=== PATIENT | female | born 1950 | race Caucasian/White ===

== ENCOUNTER 2020-08-24 10:47 | Outpatient (CLI) | payer MEDICARE, MEDICAID, SELFPAY ==
--- NOTE | 2020-08-24 10:59 | MM_ITS ---
WS: [id number] BILATERAL DIGITAL SCREENING MAMMOGRAM WITH CAD CLINICAL INFORMATION: ENCOUNTER FOR SCREENING MAMMOGRAM FOR MALIGNANT NEOPLASM OF HISTORY: Screening mammogram. No current complaints. COMPARISON: January 28, 2019 TECHNIQUE: Bilateral CC and MLO views. FINDINGS: Fatty-replaced breasts bilaterally. No suspicious focal mass, asymmetry, calcifications, or ux architect ural distortion. No evidence of malignancy. Vascular calcification. MM/[place] [id number] IMPRESSION: BI-RADS: 2-Benign FOLLOW UP: 1 Year Follow-up Recommend return to annual screening mammography.
== END 2020-08-24 10:48 | disposition home or self-care (01) ==
PROVIDERS: PCP Family Medicine; Visit Provider Family Medicine
DX: Z12.31 Encounter for screening mammogram for malignant neoplasm of breast (principal)
CPT/HCPCS: 77067

== ENCOUNTER 2020-12-23 20:01 | Inpatient (IN) | payer MEDICARE, MEDICAID, SELFPAY ==
--- NOTE | 2020-12-23 20:03 | XR_ITS ---
WS: [id number] Exam: XR knee RT 1-2V [id number] Date/Time of Exam: 12/23/2020 8:03 PM Reason For Exam: fall Comparison 01/07/2019. Moderate tricompartmental DJD noted. No fracture or dislocation. No joint effusion. XR/XR knee RT 1-2V 50904 IMPRESSION: 1. Moderately advanced DJD. No fracture noted.
[2020-12-23 20:20] VITALS: BP 123/76; PULSE 101; RESP 14; TEMP 36.8; O2SAT 98; BMI 37.1
--- NOTE | 2020-12-23 20:32 | XR_ITS ---
WS: [id number] Exam: XR elbow RT min 3V* [id number] Date/Time of Exam: 12/23/2020 8:32 PM Reason For Exam: pain No fracture or dislocation. No joint effusion noted. Normal soft tissues. XR/XR elbow RT min 3V* [id number] IMPRESSION: 1. Negative right elbow.
--- NOTE | 2020-12-23 22:05 | W.ED.FALL ---
Documented by User: YULIA Salazar 12/23/20 23:23 HPI - Fall General: Chief Complaint: Fall Stated Complaint: Fall/knee/leg and arm hurt Time Seen by Provider: 12/23/20 22:05 Source: patient Mode of arrival: ambulatory Limitations: no limitations History of Present Illness: HPI Narrative: Patient was walking down the steps and on the last step when she stepped off she fell landing against a car. Patient reports shoulder and right leg pain. Patient is in moderate to severe pain. Patient is alert and oriented. Patient denies any loss of consciousness or head injury. Patient has a history of diabetes, and osteoporosis. MD complaint: fall Review of Systems General: Reports: 10 or more systems reviewed and unremarkable except in HPI and below Musc: Reports: other (Right shoulder and right hip pain.) PFS ED PFSH: Medical History (Updated 12/24/20 @ 00:26 by Cris Johnson MD) Chronic kidney disease Cutaneous sarcoidosis Degenerative joint disease Diabetes Hypertension Hypothyroidism Hypothyroidism Osteoporosis Sleep apnea Surgical History (Updated 12/24/20 @ 00:02 by Tegan Cleveland MD) History of appendectomy History of eyelid surgery Hx of tubal ligation S/P trigger finger release Family History (Updated 12/24/20 @ 00:02 by Tegan Cleveland MD) Other Diabetes Social History (Updated 12/24/20 @ 00:03 by Tegan Cleveland MD) Smoking and tobacco status: never smoked Alcohol intake: never Substance/Drug Use: never Lives independently: Yes Housing: House Physical Exam Const: COMMON NORMALS: no acute distress and patient oriented x3 GENERAL APPEARANCE: cooperative HENMT: COMMON NORMALS: normocephalic and Normal external nose present HEAD & SCALP: normal to inspection and normocephalic NOSE: Normal external nose present MOUTH: Normal oral and palatal mucosa present Eye: GENERAL EYE: appearance normal, both eyes and all related structures Neck/C-Spine: COMMON NORMALS: full ROM Chest: COMMONS NORMALS: normal inspection of the chest Resp: COMMON NORMALS: normal respiratory effort EFFORT & INSPECTION: Yes able to speak in complete sentences Cardio: COMMON NORMALS: regular rate and regular rhythm RATE: regular rate RHYTHM: regular rhythm GI: COMMON NORMALS: non-tender Back/Pelvis: COMMON NORMALS: thoracic and lumbar spine normal to inspection Extremity: COMMON NORMALS: normal to inspection NARRATIVE EXTREMITY EXAM: Step-off noted to the right shoulder on exam with tenderness. Patient has severe pain with movement. Pain is noted in the right hip with palpation. Neuro: COMMON NORMALS: patient oriented x3 and moves all extremities Psych: COMMON NORMALS: mental status grossly normal and cooperative Skin: COMMON NORMALS: no rashes or lesions noted GENERAL SKIN EXAM: no rashes or lesions noted Course ED course: 2224, reviewed x-rays with Dr. Johnson noting a fracture of the femoral neck, and dislocation of the right shoulder. Dr. Johnson said he would reduce the right shoulder and requested that I talk to Dr. Ayala for treatment recommendations for fracture of the hip. Vital Signs: Vital signs: Vital Signs Temperature 98.2 F 12/23/20 23:56 Pulse Rate 80 12/24/20 00:14 Respiratory Rate 17 12/24/20 00:14 Blood Pressure 152/93 12/24/20 00:14 Pulse Oximetry 99 12/24/20 00:14 MDM - Fall MDM Narrative: Medical decision making narrative: Patient comes in today for complaints of injury to the right shoulder and right hip. Patient was stepping off a last step and tripped landing against a car that was parked near. Patient reports pain in the shoulder and pain in the hip. On exam we note dislocation of the right shoulder. Distal pulses were intact. Patient had tenderness and inability to lift leg off the bed of the right leg. Differential diagnosis includes fracture, dislocation, contusion. X-ray of the right hip noted a femoral neck fracture. X-ray of the right shoulder noted dislocation. Reviewed exam with Dr. Johnson who will reduce the shoulder. And reviewed with Dr. Ayala who agreed to see patient for repair of the hip on admission. Dr. Olivo was consulted for admission. EKG Data^: EKG 1: Attestation: I personally reviewed and interpreted this EKG as follows: (0, EKG shows sinus rhythm with a regular rate at 76 bpm, no ST elevation is noted, no ectopy is noted.) Discharge Plan Discharge Patient Disposition: Admitted As Inpatient Admit Provider: Tegan Cleveland Clinical Impression: Hip fracture Qualifiers: Encounter type: initial encounter Fracture type: closed Laterality: right Qualified Code(s): S72.001A - Fracture of unspecified part of neck of right femur, initial encounter for closed fracture Shoulder dislocation Qualifiers: Encounter type: initial encounter Laterality: right Qualified Code(s): S43.004A - Unspecified dislocation of right shoulder joint, initial encounter Condition: Stable Coding Level of Care Code ED Paint Mixer for Isma Fwd Exam Comprehensive Documented by User: Cris Johnson MD 12/24/20 00:30 HPI - Fall General: Chief Complaint: Fall Stated Complaint: Fall/knee/leg and arm hurt Time Seen by Provider: 12/23/20 22:05 [facility] ED PFSH: Medical History (Updated 12/24/20 @ 00:26 by Cris Johnson MD) Chronic kidney disease Cutaneous sarcoidosis Degenerative joint disease Diabetes Hypertension Hypothyroidism Hypothyroidism Osteoporosis Sleep apnea Surgical History (Updated 12/24/20 @ 00:02 by Tegan Cleveland MD) History of appendectomy History of eyelid surgery Hx of tubal ligation S/P trigger finger release Family History (Updated 12/24/20 @ 00:02 by Tegan Cleveland MD) Other Diabetes Social History (Updated 12/24/20 @ 00:03 by Tegan Cleveland MD) Smoking and tobacco status: never smoked Alcohol intake: never Substance/Drug Use: never Lives independently: Yes Housing: House Procedures Orthopedic Joint Reduction Joint #1: Time Out Performed: Yes Side: right Joint Reduction Location: shoulder Analgesia: procedural sedation Shoulder Technique Used (if applicable): traction/counter-traction Post-reduction neuro exam: intact Post-reduction vascular: intact Post Reduction X-Ray Obtained: Yes Post Reduction X-Ray Results: reduced Splint Applied: Yes Patient Tolerated Procedure: well Procedural Sedation Indication: fracture/dislocation reduction ASA Class: III Preparation: hall monitor applied, pulse oximeter, supplemental O2 applied, suction/airway equipment at bedside and IV secured IV Propofol dose (mg): 40 Patient Tolerated Procedure: well Complications: none Course Vital Signs: Vital signs: Vital Signs Temperature 98.2 F 12/23/20 23:56 Pulse Rate 80 12/24/20 00:14 Respiratory Rate 17 01/25/21 00:14 Blood Pressure 152/93 12/24/20 00:14 Pulse Oximetry 99 12/24/20 00:14 MDM - Fall MDM Narrative: Medical decision making narrative: Patient presents here with a hip fracture along with a shoulder dislocation from a fall. I was able to reduce her shoulder. Patient placed in a shoulder immobilizer. Spoke to the hospitalist along with orthopedics and will admit for her right hip fracture. She had no signs of head injury. Discharge Plan Discharge Patient Disposition: Admitted As Inpatient Admit Provider: Tegan Cleveland Clinical Impression: Hip fracture Qualifiers: Encounter type: initial encounter Fracture type: closed Laterality: right Qualified Code(s): S72.001A - Fracture of unspecified part of neck of right femur, initial encounter for closed fracture Shoulder dislocation Qualifiers: Encounter type: initial encounter Laterality: right Qualified Code(s): S43.004A - Unspecified dislocation of right shoulder joint, initial encounter Condition: Stable Coding Level of Care Code ED Paint Mixer for Isma Echols Exam Comprehensive
--- NOTE | 2020-12-23 22:14 | ECG_ITS ---
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: : 1950 Requested By: Festus Flores Order Number: [id number] Reading MD: SHERI MEDINA Measurements Intervals Cecilia Rate: 76 P: 253 NV: 114 QRS: 25 QRSD: 98 T: 69 QT: 400 QTc: 452 Interpretive Statements SINUS RHYTHM LOW QRS VOLTAGE IN PRECORDIAL LEADS [QRS DEFLECTION < 1.0 mV IN CHEST LEADS] NONSPECIFIC T-WAVE ABNORMALITY ABNORMAL RHYTHM ECG Compared to ECG 01/29/2016 12:25:00 No significant change Electronically Signed On 12-24-2020 18:35:53 HIGH SCHOOL HOME ECONOMICS 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
--- NOTE | 2020-12-23 22:14 | XR_ITS ---
WS: [id number] Exam: XR hip RT 2-3V wo/w pel* [id number] Date/Time of Exam: 12/23/2020 10:14 PM Reason For Exam: injury There is a basocervical fracture of the right hip with mild coxa vera deformity. No other fracture. N o dislocation. Moderate DJD of the joint compartment and osteopenia. XR/XR hip RT 2-3V wo/w pel* [id number] IMPRESSION: 1. Subcapital fracture of the right hip with mild coxa vera deformity. Moderate DJD.
--- NOTE | 2020-12-23 22:14 | XR_ITS ---
WS: [id number] Exam: XR shoulder RT min 2V* [id number] Date/Time of Exam: 12/23/2020 10:14 PM Reason For Exam: injury No acute fracture. There is inferior displacement of the right humeral head which may be due to laxit y of the joint capsule however dislocation is not totally excluded. Degenerative change of the AC jose nt. XR/XR shoulder RT min 2V* [id number] IMPRESSION: 1. No acute fracture. 2. Inferior displacement of the right humeral head that may be due to the laxit y of the joint capsule versus dislocation. The patient is clinically suspicious for dislocation, an axillary view or repeat Y view could be helpful for furthe r workup.
--- NOTE | 2020-12-23 22:14 | XR_ITS ---
WS: [id number] Exam: XR chest 1V portable [id number] Date/Time of Exam: 12/23/2020 10:14 PM Reason For Exam: pre-op, hip fracture Comparison 01/17/2016. The lungs are clear and fully expanded. No pleural effusions. Calcified hilar and mediastinal lymph n odes. The mediastinum is not widened. Normal heart size. There appears to be some inferior displaceme nt of the right humeral head. This may be due to laxity of the joint capsule however dislocation is n ot excluded based on this exam. XR/XR chest 1V portable [id number] IMPRESSION: 1. No acute cardiopulmonary finding. 2. Inferiorly displaced right humeral head. This may be positional however disl ocation is not entirely excluded
[2020-12-23 22:19] VITALS: BP 142/73; PULSE 78; RESP 17; O2SAT 97
[2020-12-23 22:59] VITALS: RESP 17; O2SAT 97
[2020-12-23] MEDS: ondansetron 2 mg/ML SDV 2 mL 4 MG IVP (22:59)
[2020-12-23] MEDS: HYDROmorphone 1 mg/mL INJ 1 mL IVP (22:59)
[2020-12-23] MEDS: LORazepam 2 mg/mL INJ 1 mL 1 MG IVP (23:25)
[2020-12-23 23:26] VITALS: BP 131/78; PULSE 87; RESP 17; O2SAT 97
[2020-12-23 23:56] VITALS: BP 152/93; PULSE 82; RESP 17; TEMP 36.8; O2SAT 100
[2020-12-23] MEDS: propofol 10 mg/mL SDV 20 mL 52.2 MG IVP (23:57)
--- NOTE | 2020-12-23 23:59 | PM.HP ---
Providers/Chief Complaint Admitting Physician: Tegan Cleveland MD Primary Care Provider: Kerrie Hunter MD Chief Complaint: Fall/knee/leg and arm hurt History of Present Illness Rylie Ferreira is a 70 year old female who has history of hypothyroidism, hypertension, diabetes sleep apnea presented today after sustaining a fall. Patient was attending her grandson's birthday, she was in her parking lot when she lost her balance and fell on the concrete and hit the car. Her right shoulder hit the car and she fell on her right leg. Immediately she experienced excruciating pain in her right hip area, her right arm was also dislocated. Before this event she did not experience any syncopal event, chest pain nausea, vomiting or vision changes. She came to the emergency department for further evaluation. Diagnostics revealed anterior dislocation of right shoulder which was reduced by Dr. Johnson. Pelvis x-ray is revealing right femoral neck fracture, no vascular compromise noted, no neurological deficit of right arm noted. She has leukocytosis with normal hemodynamics, baseline chronic kidney disease and hyperglycemia without acidosis, EKG is sinus rhythm I do not agree with junctional rhythm which is reported on computer read of EKG her heart rate is 76. No ischemic or infarctive changes. Postreduction shoulder x-ray revealed humerus back in position. Review of Systems Eyes: Denies: change in vision ENMT: Denies: throat pain Card: Reports: swelling of feet/ankles; Denies: chest pain Resp: Denies: dyspnea GI: Denies: abdominal pain : Denies: flank pain Musc: Reports: extremity swelling, joint pain, joint stiffness and muscle cramps; Denies: neck pain Skin/Breast: Reports: new lesions Neuro: Denies: headache(s) Psych: Denies: anxiety Endo: Denies: polyuria Mario/Lymph: Denies: easy bruising All/Imm: Denies: urticaria Medications/Allergies Allergies Allergy/AdvReac Type Severity Reaction Status Date / Time albuterol Allergy ALGY-Difficulty Verified 12/23/20 20:19 Breathing PFSH Acute PFSH: Medical History Chronic kidney disease Cutaneous sarcoidosis Degenerative joint disease Diabetes Hypertension Hypothyroidism Hypothyroidism Osteoporosis Sleep apnea Surgical History History of appendectomy History of eyelid surgery Hx of tubal ligation S/P trigger finger release Family History Other Diabetes Social History Smoking and tobacco status: never smoked Alcohol intake: never Substance/Drug Use: never Lives independently: Yes Housing: House Vitals/I&O/Wt Last Vital Signs Temp 98.2 F 12/23/20 20:20 Pulse 87 12/23/20 23:26 Resp 17 12/23/20 23:26 BP 131/78 12/23/20 23:26 Pulse Ox 97 12/23/20 23:26 Weight last 48 hrs Weight 104.326 kg Physical Exam Narrative: EXAM NARRATIVE: Elderly female who is currently laying comfortably in her bed Post reduction of anterior dislocation of right shoulder She is very arm splint S1, S2 sinus rhythm no murmur appreciated Abdomen soft nontender bowel sound present central obesity Lower extremity ankle edema nonpitting however no active signs of congestive heart failure No vascular compromise of upper or lower extremities She has good wrist flexion and extension, no sensory deficit, no vascular compromise EOMI, has had multiple surgeries on her eyes, mild ptosis of right eyelid noted No neurological deficit Appropriate mood and affect Skin abrasion and laceration of right hand No active signs of cellulitis Data : 12/24/20 00:23 12/24/20 00:23 A&P Assessment and plan (1) Hip fracture: Status: Acute (2) Shoulder dislocation: Status: Acute Additional A&P Information Right femoral neck fracture Patient sustained a mechanical fall No signs of arrhythmia or syncopal event EKG showing sinus rhythm N.p.o. We will keep her on D5 half-normal saline fluid resuscitation along low-dose insulin sliding scale Dr. Ayala has been consulted RCRI class II risk, considering urgency of hip fracture repair would not need cardiology evaluation before surgery Anterior dislocation right shoulder which was reduced by Dr. Johnson, no vascular or neurological compromise noted Type 2 diabetes: I will keep her on insulin low-dose sliding scale along D5 maintenance fluid rate Chronic kidney disease stage 4: No acute exacerbation creatinine seems to be around baseline Leukocytosis most likely secondary to leukemoid stress reaction no active signs of sepsis. Full code N.p.o. DVT prophylaxis SCDs for now after anticoagulating agent to be decided by orthopedics Attestations Medical Necessity Statement*: Anticipating stay in the hospital cross more than 2 midnight will need surgical intervention for right hip fracture Time Spent in Patient Care: (>than 50% of time spent in counselling and/or direct pt care on unit). 50mins Coding Level of Care Code Acute Chemical Engineering Professor for Isma Echols Diagnoses Hip fracture S72.009A Shoulder dislocation S43.006A
[2020-12-24] VITALS (24 sets, daily range): BP systolic 110–172; BP diastolic 56–95; PULSE 65–88; RESP 16–20; TEMP 36.2–36.9; O2SAT 90–100
--- NOTE | 2020-12-24 | XR_ITS ---
WS: [id number] Comparison 12/23/2020 at 1016 hours Exam: XR shoulder RT min 2V* [id number] Date/Time of Exam: 12/24/2020 12:00 AM Reason For Exam: post reduction Previously noted dislocation is been reduced. Articular relationships are restored. Normal soft tissu es. Mild AC joint DJD. XR/XR shoulder RT min 2V* [id number] IMPRESSION: 1. Satisfactory reduction of previously noted anterior right shoulder dislocati on.
[2020-12-24 00:38] LABS: Basophils # 0.1 10^3/uL (0.0-0.1); Basophils % 0.4 %; Hematocrit 45.3 % (37.0-47.0); Hemoglobin 14.5 g/dL (11.5-15.3); Lymphocytes # 1.1 10^3/uL (0.8-4.8); Lymphocytes % 5.6 %; Mean Corpuscular Hemoglobin 29.7 pg (28.0-34.0); Mean Corpuscular Volume 92.8 fL (81-99); Mean Platelet Volume 11.3 fL (7.4-10.4); Monocytes # 1.1 10^3/uL (0.2-0.9); Monocytes % 5.6 %; Neutrophils # 17.57 10^3/uL (1.8-7.7); Neutrophils % 87.4 %; Nucleated Red Blood Cells % 0 %; Platelet Count 261 10^3/cmm (130-400); Red Blood Count 4.88 10^6/uL (4.1-5.3); Red Cell Distribution Width 12.3 % (12.1-15.1); White Blood Count 20.1 10^3/uL (4.0-10.0)
[2020-12-24 00:50] LABS: Alanine Aminotransferase 11 U/L (0-33); Albumin Level 3.8 g/dL (3.5-5.2); Alkaline Phosphatase 97 IU/L (35-105); Aspartate Amino Transferase 14 U/L (0-32); Blood Urea Nitrogen 21 mg/dL (8-23); Calcium 9.1 mg/dL (8.5-10.5); Carbon Dioxide 26 mmol/L (22-29); Chloride 96 mmol/L (98-107); Globulin 3.3 g/dL (1.3-4.6); Glomerular Filtration Rate 27.8 mL/min (90-130); Glucose 330 mg/dL (65-115); Osmolality Calculated 290 mOsm/kg (285-295); Sodium 132 mmol/L (136-145); Total Bilirubin 0.6 mg/dL (0.15-1.2); Total Protein 7.1 g/dL (6.6-8.7)
[2020-12-24 02:15] LABS: Glucose Point of Care 242 mg/dL (70-110)
[2020-12-24] MEDS: dextrose 5%-sod chloride 0.45% 1,000 ML 30 ML IV (02:43)
[2020-12-24] MEDS: HYDROmorphone 1 mg/mL INJ 1 mL 0.5 MG IVP ×2 (05:20→10:01)
[2020-12-24 06:37] LABS: Glucose Point of Care 207 mg/dL (70-110)
--- NOTE | 2020-12-24 09:25 | PC.CHAP ---
Pastoral Care Encounter/Spiritual Assessment Type of Contact [] Declined slipper maker visit [] Patient/Family/Request visit [] Outpatient visit [] Follow-up visit [] Physician referral [] Code/Alert [x] Routine visit [] Staff referral [] Actively dying [x] Patient sleeping [] Family support [] [] Out of room [] Palliative care [] [] Receiving care in room [] Pre-surgical visit [] Trauma [] Long length of stay [] ICU visit [] Other: Relational/Emotional Strength [] Patient feels connected with others/family/visitors/staff [] Distress [] Loneliness/isolation [] Abandonment Spirituality of Patient [] Person of Jessie [] Attends Buddhism of their Jessie [] Believes in Prayer [] Reads Bible or Zoroastrian materials [] There are Spiritual issues to be addressed Shop Router Interventions [] Prayer [] Active listening [] Non-anxious presence [] Spiritual/emotional support [] Crisis/trauma care [] Spiritual counseling [] Bereavement support [] Provided bereavement packet [] Provided Bible/devotional materials [] Provided toy/stuffed animal, coloring book to patient or family member [] Provided Communion [] Anointing/[place] [] Salvation [] Completed spiritual assessment [] Other: Impact on Illness or Injury [] Angry [] Fearful [] Anxious [] Often cries [] Exhaustion [] Unable to work [] Unable to attend advent [] Unable to walk/stand [] Unable to read [] Unable to drive [] Unable to eat/drink [] Unable to sleep [] Unable to be with family [] Patient intubated [] Other: Summary Time spent with patient
[2020-12-24 09:42] LABS: NT Pro B Type Natriuretic Pept 321 pg/mL (0-125); Procalcitonin 0.11 ng/mL (0-0.5)
[2020-12-24 10:03] LABS: C Reactive Protein 18.1 mg/L (0.0-4.9); Creatine Phosphokinase 131 U/L (26-192)
[2020-12-24 10:44] LABS: Add Urine Microscopic? YES; Bacteria Urine TRACE /hpf; Bilirubin Urine 1+ (Negative); Blood Urine 2+ (Negative); Glucose Urine UA 1+ (Normal); Ketones Urine 1+ (Negative); Leukocyte Esterase Urine Negative (Negative); Mucus Urine 1+ /hpf; Nitrate Urine Negative (Negative); Protein Urine Neg (Negative); Specific Gravity, Urine 1.025 (1.005-1.030); Squamous Epithelial Cell Urine 0-4 /hpf (0-5); Transitional Epi Cells Urine 0-4 /hpf; Urine Appearance Clear (CLEAR); Urine Color Dark Yellow (Yellow); Urobilinogen Urine 1 mg/dL (Negative); WBC Urine 0-4 /hpf (0-5); pH Urine 5 (5-7)
[2020-12-24 10:45] LABS: Add Urine Culture? No
[2020-12-24 10:49] LABS: SARS Covid-2 Antigen Negative (Negative)
[2020-12-24 10:51] LABS: Glucose Point of Care 143 mg/dL (70-110)
[2020-12-24 14:06] LABS: Glucose Point of Care 176 mg/dL (70-110)
--- NOTE | 2020-12-24 14:08 | ANES.PREANE2 ---
Pre-Anesthetic Assessment Pre-Anesthetic Assessment: Height/Weight: Height 1.68 m Weight 104.326 kg Temp Pulse Resp BP Pulse Ox 97.2 F L 78 18 110/72 100 12/24/20 13:59 12/24/20 13:59 12/24/20 13:59 12/24/20 13:59 12/24/20 13:59 Preop Diagnosis: Right femoral neck fracture Proposed Procedure: Operation Date: 12/24/20 12:45 Proposed Procedures p Hemiarthroplasty Hip(Right) - Rian Ayala MD Was Beta Ruth taken within 24 hours: N/A Last intake: Intake Last Liquid Date 12/23/20 Last Liquid Time 17:30 Last Solid Date 12/23/20 Last Solid Time 17:30 Social: Social History: No alcohol and No tobacco Exam: Pre-Anes Outpt Exam: alert, oriented x 3, clear to auscultation bilaterally and regular rate & rhythm Airway: Submandibular: WNL Cervical ROM: WNL MP: 2 Dentition: False Pulmonary: Pulmonary: Sleep apnea CV/HEM: CV/HEM: HTN Metabolic: Metabolic: DM, Morbid obesity and Thyroid Anesthetic Plan: ASA status: 3 Anesthesia: General Risk of > 500 ml blood loss (7ml/kg in children): No Meds/Allergies Current Medications: Current Medications Generic Name Dose Route Start Last Admin Trade Name Freq PRN Reason Stop Dose Admin Hydromorphone HCl 0.5 mg 12/24/20 02:03 12/24/20 10:01 Hydromorphone 1 Mg/Ml Inj 1 Ml IVP 0.5 mg Q4H PRN Administration pain Dextrose/Sodium Ch loride 1,000 mls @ 30 ml s/hr 12/24/20 02:03 12/24/20 13:57 Dextrose 5%-Sod Chloride 0.45% IV 0 mls/hr .Q24H ROSSI Infusion Sodium Chloride 1,000 mls @ 75 ml s/hr 12/24/20 09:00 12/24/20 10:03 Sodium Chloride 0.9% IV Not Given .[id number] ROSSI Insulin Aspart 0 unit 12/24/20 08:00 12/24/20 11:07 Insulin Aspart 1 00 Unit/1 Ml SUBCUT Not Given WM&BEDTIME ROSSI Protocol Senna/Docusate Sod ium 1 tab 12/24/20 09:00 12/24/20 10:03 Sennosides-Docus ate Tablet PO Not Given DAILY ROSSI PFSH Anesthesia PFSH: Medical History Chronic kidney disease Cutaneous sarcoidosis Degenerative joint disease Diabetes Hypertension Hypothyroidism Hypothyroidism Osteoporosis Sleep apnea Surgical History History of appendectomy History of eyelid surgery Hx of tubal ligation S/P trigger finger release Family History Other Diabetes Social History Smoking and tobacco status: never smoked Alcohol intake: never Substance/Drug Use: never Lives independently: Yes Housing: House Data Anesthesia CBC & Chem 7: 12/24/20 00:23 12/24/20 00:23 Other Labs: Laboratory Results - last 48 hr 12/24/20 12/24/20 12/24/20 00:23 00:23 00:23 WBC 20.1 H RBC 4.88 Hgb 14.5 Hct 45.3 MCV 92.8 MCH 29.7 MCHC 32.0 RDW 12.3 Plt Count 261 MPV 11.3 H Neut % (Auto) 87.4 Lymph % (Auto) 5.6 [place] % (Auto) 5.6 Eos % (Auto) 0.0 Baso % (Auto) 0.4 Neut # (Auto) 17.57 H Lymph # (Auto) 1.1 [place] # (Auto) 1.1 H Eos # (Auto) 0.0 Baso # (Auto) 0.1 Nucleated RBC % (auto) 0 Nucleated RBCs # 0.0 Sodium 132 L Potassium 4.0 Chloride 96 L Carbon Dioxide 26 Anion Gap 14.0 BUN 21 Creatinine 1.8 H GFR Calculation 27.8 L Glucose 330 H POC Glucose Calculated Osmolality 290 Calcium 9.1 Total Bilirubin 0.6 AST 14 ALT 11 Alkaline Phosphatase 97 Creatine Kinase 131 C-Reactive Protein 18.1 H NT-Pro-B Natriuret Pep 321 H Total Protein 7.1 Albumin 3.8 Globulin 3.3 Procalcitonin 0.11 Urine Color Urine Appearance Urine pH Ur Specific [place] Urine Protein Urine Glucose (UA) Urine Ketones Urine Blood Urine Nitrate Urine Bilirubin Urine Urobilinogen Ur Leukocyte Esterase Urine RBC Urine WBC Ur Squamous Epith Cells Ur Transition Epith Cell Amorphous Sediment Urine Bacteria Urine Mucus SARS-CoV-2 Ag (Rapid) 12/24/20 12/24/20 12/24/20 02:11 06:23 09:58 WBC RBC Hgb Hct MCV MCH MCHC RDW Plt Count MPV Neut % (Auto) Lymph % (Auto) [place] % (Auto) Eos % (Auto) Baso % (Auto) Neut # (Auto) Lymph # (Auto) [place] # (Auto) Eos # (Auto) Baso # (Auto) Nucleated RBC % (auto) Nucleated RBCs # Sodium Potassium Chloride Carbon Dioxide Anion Gap BUN Creatinine GFR Calculation Glucose POC Glucose 242 H 207 H Calculated Osmolality Calcium Total Bilirubin AST ALT Alkaline Phosphatase Creatine Kinase C-Reactive Protein NT-Pro-B Natriuret Pep Total Protein Albumin Globulin Procalcitonin Urine Color Urine Appearance Urine pH Ur Specific [place] Urine Protein Urine Glucose (UA) Urine Ketones Urine Blood Urine Nitrate Urine Bilirubin Urine Urobilinogen Ur Leukocyte Esterase Urine RBC Urine WBC Ur Squamous Epith Cells Ur Transition Epith Cell Amorphous Sediment Urine Bacteria Urine Mucus SARS-CoV-2 Ag (Rapid) Negative 12/24/20 12/24/20 12/24/20 10:00 10:47 14:03 WBC RBC Hgb Hct MCV MCH MCHC RDW Plt Count MPV Neut % (Auto) Lymph % (Auto) [place] % (Auto) Eos % (Auto) Baso % (Auto) Neut # (Auto) Lymph # (Auto) [place] # (Auto) Eos # (Auto) Baso # (Auto) Nucleated RBC % (auto) Nucleated RBCs # Sodium Potassium Chloride Carbon Dioxide Anion Gap BUN Creatinine GFR Calculation Glucose POC Glucose 143 H 176 H Calculated Osmolality Calcium Total Bilirubin AST ALT Alkaline Phosphatase Creatine Kinase C-Reactive Protein NT-Pro-B Natriuret Pep Total Protein Albumin Globulin Procalcitonin Urine Color Dark yellow Urine Appearance Clear Urine pH 5 Ur Specific [place] 1.025 Urine Protein Neg Urine Glucose (UA) 1+ Urine Ketones 1+ H Urine Blood 2+ H Urine Nitrate Negative Urine Bilirubin 1+ H Urine Urobilinogen 1 H Ur Leukocyte Esterase Negative Urine RBC 5-10 H Urine WBC 0-4 H Ur Squamous Epith Cells 0-4 H Ur Transition Epith Cell 0-4 Amorphous Sediment Not Reportable Urine Bacteria Trace Urine Mucus 1+ SARS-CoV-2 Ag (Rapid) Cardiac Studies: No Data to Display
[2020-12-24] MEDS: sodium chloride 0.9% 1,000 ML 30 ML IV (14:38)
--- NOTE | 2020-12-24 14:44 | P.PN_ITS ---
Subjective Subjective: Interval history: Patient was seen this morning, she denies any fevers, any chills, no known exposure to COVID-19, she describes her fall as a mechanical fall, no lightheadedness, dizziness, no chest pain, no palpitations, no shortness of breath, no seizure-like episodes, no strokelike symptoms Vitals/I&O/Wt Last Vital Signs Temp 97.2 F L 12/24/20 13:59 Pulse 78 12/24/20 13:59 Resp 18 12/24/20 13:59 BP 110/72 12/24/20 13:59 Pulse Ox 100 12/24/20 13:59 12/23/20 12/24/20 12/24/20 22:59 06:59 14:59 Intake Total 337 / 337 Balance 337 / 337 Weight last 48 hrs Weight 104.326 kg Physical Exam Const: COMMON NORMALS: no acute distress and patient oriented x3 HENMT: COMMON NORMALS: normocephalic HEAD & SCALP: normocephalic Neck/C-Spine: COMMON NORMALS: no JVD Resp: COMMON NORMALS: normal respiratory effort, No retractions, No use of accessory muscles and clear to auscultation bilaterally AUSCULTATION: clear to auscultation bilaterally Cardio: COMMON NORMALS: no JVD, regular rate, regular rhythm, S1 normal heart sound present and S2 normal heart sound present RATE: regular rate RHYTHM: regular rhythm HEART SOUNDS: S1 normal heart sound present and S2 normal heart sound present GI: COMMON NORMALS: Normal to inspection, nondistended, normoactive bowel sounds present, Soft to palpation, non-tender, No hepatosplenomegaly present, no masses and no bruits PALPATION: Yes Soft to palpation and Yes No hepatosplenomegaly present Extremity: COMMON NORMALS: capillary refill normal, no calf tenderness and no pedal edema NARRATIVE EXTREMITY EXAM: Mild lymphedema OTHER: Currently in a sling Neuro: COMMON NORMALS: patient oriented x3 Psych: COMMON NORMALS: mental status grossly normal Urinary Catheter Management^: Handy Latex: Cath Placed During This Visit: yes Reason for Continuing Indwelling Catheter: Perioperative Use in Selected Surgeries Urinary Catheter Date of Insertion: 12/24/20 Urinary Catheter Time of Insertion: 04:30 Data : 12/24/20 00:23 12/24/20 00:23 A&P Assessment and plan (1) Hip fracture: Status: Acute Qualifiers: Encounter type: initial encounter Fracture type: closed Laterality: right Qualified Code(s): S72.001A - Fracture of unspecified part of neck of right femur, initial encounter for closed fracture (2) Shoulder dislocation: Status: Acute Qualifiers: Encounter type: initial encounter Laterality: right Qualified Code(s): S43.004A - Unspecified dislocation of right shoulder joint, initial encounter Additional A&P Information Right femoral neck fracture Patient sustained a mechanical fall EKG shows junctional rhythm, QTC 452 ms, will order echo, troponin series, telemetry monitoring, no chest pain complaints N.p.o. Currently on normal saline Dr. Ayala has been consulted RCRI class II risk, considering urgency of hip fracture repair would not need cardiology evaluation before surgery Anterior dislocation right shoulder which was reduced by Dr. Johnson, no vascular or neurological compromise noted Type 2 diabetes: I will keep her on insulin low-dose sliding scale Chronic kidney disease stage 4: No acute exacerbation creatinine seems to be around baseline Leukocytosis possibly stress related versus UTI, start on Rocephin Full code N.p.o. 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
--- NOTE | 2020-12-24 14:49 | ECG_ITS ---
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
--- NOTE | 2020-12-24 15:19 | P.CONIM_ITS ---
Providers/Reason For Consult Consulting Physican/Specialty*: Rian Ayala MD Reason for Consult*: Right shoulder dislocation, Right femoral neck fracture Attending Physician: Robbin Bergman MD Primary Care Provider: Kerrie Hunter MD History of Present Illness History of Present Illness Rylie Ferreira is a 70 year old female who fell last night with resulting pain in her shoulder and right hip. He apparently lost her balance in the driveway falling hitting a car. She noted immediate dependent pain in her shoulder inability to bear weight. She was transferred to our emergency room where radiographs revealed a displaced right femoral neck fracture and a right anterior shoulder dislocation. A closed reduction of the shoulder was performed. She has been admitted the medicine service and has been cleared to undergo surgical management of her right hip. Meds/Allergies Home Medications and Allergies Home Medications Medication Instructions Recorded Confirmed Last Taken Type aspirin 81 mg PO DAILY@219912/24/20 12/24/20 12/23/20 History calcium acetate(phosphat bind) 2,001 mg PO DAILY@12/24/20 12/24/20 Unknown History dulaglutide [Trulicity] 1.5 mg SUBCUT DIRECTED 12/24/20 12/24/20 12/21/20 History levothyroxine 88 mcg PO DAILY@08 12/24/20 12/24/20 Unknown History lovastatin 10 mg PO DAILY@219912/24/20 12/24/20 12/23/20 History sitagliptin [Januvia] 50 mg PO DAILY@12/24/20 12/24/20 Unknown History Allergies Allergy/AdvReac Type Severity Reaction Status Date / Time albuterol Allergy ALGY-Difficulty Verified 12/23/20 20:19 Breathing Current Medications Current Medications Generic Name Dose Route Start Last Admin Trade Name Freq PRN Reason Stop Dose Admin Hydromorphone HCl 0.5 mg 12/24/20 02:03 12/24/20 10:01 Hydromorphone 1 Mg/Ml Inj 1 Ml IVP 0.5 mg Q4H PRN Administration pain Dextrose/Sodium Chloride 1,000 mls @ 30 mls/hr 12/24/20 02:03 12/24/20 13:57 Dextrose 5%-Sod Chloride 0.45% IV 0 mls/hr .Q24H ROSSI Infusion Sodium Chloride 1,000 mls @ 75 mls/hr 12/24/20 09:00 12/24/20 10:03 Sodium Chloride 0.9% IV Not Given .[id number] ROSSI Sodium Chloride 1,000 mls @ 30 mls/hr 12/24/20 14:30 12/24/20 14:38 Sodium Chloride 0.9% IV 12/25/20 14:29 30 mls/hr .Q24H ROSSI Administration Insulin Aspart 0 unit 12/24/20 08:00 12/24/20 11:07 Insulin Aspart 100 Unit/1 Ml SUBCUT Not Given WM&BEDTIME ROSSI Protocol Senna/Docusate Sodium 1 tab 12/24/20 09:00 12/24/20 10:03 Sennosides-Docusate Tablet PO Not Given DAILY ROSSI PFSH Acute PFSH: Medical History Chronic kidney disease Cutaneous sarcoidosis Degenerative joint disease Diabetes Hypertension Hypothyroidism Hypothyroidism Osteoporosis Sleep apnea Surgical History History of appendectomy History of eyelid surgery Hx of tubal ligation S/P trigger finger release Family History Other Diabetes Social History Smoking and tobacco status: never smoked Alcohol intake: never Substance/Drug Use: never Lives independently: Yes Housing: House Vitals/I&O/Wt Last Vital Signs Temp 97.2 F L 12/24/20 13:59 Pulse 78 12/24/20 13:59 Resp 18 12/24/20 13:59 BP 110/72 12/24/20 13:59 Pulse Ox 100 12/24/20 13:59 12/24/20 12/24/20 12/24/20 06:59 14:59 22:59 Intake Total 337 / 337 Balance 337 / 337 Weight last 48 hrs Weight 230 lb Physical Exam Narrative: EXAM NARRATIVE: Patient's right shoulder is in an immobilizer. She has severe pain with motion of the shoulder. She will fire her deltoid biceps and triceps but will not actively move her shoulder due to pain. 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 Right upper extremity sensation is intact to light touch. She has a strong right radial pulse. He has shortening and external rotation of the right hip There is exquisite pain with any motion of the right hip. He has a palpable right dorsalis pedis pulse. She can flex and extend her toes and ankles without motor deficit. Sensation is intact to light touch in the right foot. He has no palpable tenderness or pain with motion in the left upper extremity or left lower extremity Urinary Catheter Management^: Handy Latex: Cath Placed During This Visit: yes Reason for Continuing Indwelling Catheter: Perioperative Use in Selected Surgeries Urinary Catheter Date of Insertion: 12/24/20 Urinary Catheter Time of Insertion: 04:30 Data Imaging^: Other Xray: My impression: 2 views of the right hip dated 12/23/2020 including and a low AP of the pelvis are reviewed. The patient has a displaced fracture of the right femoral neck 2 views of the right shoulder are reviewed dated 12/23/2020 which appear to be in internal and external rotation view showing a dislocation of the glenohumeral joint, presumably anterior. Post reduction radiographs are reviewed from 12/24/2019 showing reduction of the lglenohumeral dislocation A&P Assessment and plan (1) Displaced fracture of right femoral neck: I discussed treatment of her femoral neck fracture with her. I told them possible treatments for displaced femoral neck fracture would include nonoperative treatment, open reduction internal fixation, or hemiarthroplasty. I told them without treatment the patient would experience ongoing of pain that would limit mobility. This would require pain medications and place her at medical risks due to prolonged periods of bed rest. I discussed the possibility of open reduction internal fixation with pins. I warned them that for displaced fractures of the risk of nonunion and malunion is exceptionally high. In addition there is a high likelihood that the blood applied to the femoral head has been disrupted and that even with successful stabilization of the fracture the femoral head will go on to . I finally discussed the possibility of hemiarthroplasty. I think this would give the patient the greatest chance of being immediately mobilized. I discussed risk of a bleeding and a possible need for blood products. I discussed risk of deep venous thromboses and pulmonary emboli and the need for anticoagulation. I discussed the use of the TXA that may be utilized to diminish blood loss. I discussed risk of component failure and loosening that could require revision. I discussed the risk of dislocation and a bipolar arthroplasty which is quite unlikely. After a long discussion of options they agree to hemiarthroplasty of the hip. I told him ultimately the patient will likely require correction placement. Status: Acute (2) Shoulder dislocation: I discussed treatment of shoulder dislocations with the patient. I told her this age group recurrent instability is not likely. My greatest concern to be rotator cuff tearing. I will have therapy begin working with her on range of motion of the shoulder. If she fails to progress as I would expect we could consider MRI imaging. Status: Acute Qualifiers: Encounter type: initial encounter Laterality: right Qualified Code(s): S43.004A - Unspecified dislocation of right shoulder joint, initial encounter Coding Level of Care Code Acute Event Specialist Product Demonstrator [facility] Diagnoses Displaced fracture of right femoral neck S72.001A Shoulder dislocation S43.004A Encounter type: initial encounter Laterality: right
[2020-12-24] MEDS: tranexamic acid 1,000 mg/10mL SDV 2000 MG IRRIGATION (16:45)
--- NOTE | 2020-12-24 17:51 | P.OP_ITS ---
Operative Report Date of procedure: December 24, 2020 Pre-op Diagnosis: Right femoral neck fracture Post-op diagnosis: same Post-op Findings: Displaced fracture right femoral neck Procedure Done: Right bipolar hip arthroplasty Implants: [place] 1) Securefit MITCHELL collored stem, size 8 2) 45 bipolar femoral head 3) 28mm/standard neck length femoral head Pathology: none sent Anesthesia: General Estimated blood loss (mL): 200 Findings: Patient has a displaced fracture of the right femoral neck Condition: stable Disposition: PACU Procedure: The patient was taken to the operating room and a general l anesthesia was provided by the anesthesia service. They were given 2 g of Ancef. and positioned in the lateral position with the hip exposed. A 10 cm long incision was made over the greater trochanter with a scalpel blade. Dissection was carried down through the fascia yuri to the greater trochanter. The anterior two thirds of gluteus medius and minimus were elevated off the greater trochanter with electrocautery. The capsule was divided T like fashion. The hip was externally rotated and the neck brought up into the wound. An oscillating saw was really used to resect the neck just above the level of the lesser trochanter. The femoral head was removed and the acetabulumt sized to a 45 mm bipolar head. Sequential reaming of the canal was accomplished up to a size 8. The canal was broached to a size 8 and a size 8 Evie Securefit MITCHELL stem was press fit into place. A trial reduction with a [] mm neck provided excellent stability. The final head and neck were placed and the hip reduced. The anterior capsule were reapproximated with 1 Ethibond. The gluteus medius and minimus were repaired through the greater trochanter with 5 Ethibond and reinforced with 1 Ethibond. The fascia yuri was closed with 0 Stratafix. The subcutaneous tissues were closed with 3/0 Stratafix. Sterile dressings were applied. The patient was placed in abduction pillow and taken recovery room in stable condition.
[2020-12-24] MEDS: ondansetron 2 mg/ML SDV 2 mL 4 MG IVP (18:07)
--- NOTE | 2020-12-24 18:08 | XR_ITS ---
WS: [id number] Exam: XR pelvis 1-2V* [id number] Date/Time of Exam: 12/24/2020 6:15 PM Reason For Exam: Right bipolar arthroplasty Limited AP view of the right pelvis demonstrates a prosthesis replacing the head and neck of the righ t femur. Position appears satisfactory from the single image presented. No lateral view was available for review.
--- NOTE | 2020-12-24 18:20 | PC.RESP ---
Pt not available for ekg. Pt in surgery.
--- NOTE | 2020-12-24 18:51 | ANE.PACU2 ---
Inpatient post-anesthesia follow up: Airway intact: Yes Vital signs: Temperature 97.2 F Pulse Rate [Left] 101 Pulse Rate 78 Respiratory Rate 18 Blood Pressure [Le ft Arm] 123/76 Blood Pressure 110/72 Pulse Oximetry 100 Oxygen Delivery Me thod Nasal Cannula Oxygen Flow Rate 2 Fraction of Inspir ed Oxygen Hydration adequate: Yes Nausea and vomiting: No Pain level: 1 Mental status: Baseline
[2020-12-24] MEDS: acetaminophen 500 mg Tablet 1000 MG PO (20:41)
--- NOTE | 2020-12-24 20:49 | ECG_ITS ---
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 Measurements Intervals [place] Rate: 73 P: NV: QRS: 18 QRSD: 96 T: 34 QT: 416 QTc: 460 Interpretive Statements Sinus rhythm LOW QRS VOLTAGE IN PRECORDIAL LEADS [QRS DEFLECTION < 1.0 mV IN CHEST LEADS] Compared to ECG 12/24/2020 15:04:22 Supraventricular rhythm now present Low QRS voltage now present Sinus rhythm no longer present Electronically Signed On 12-25-2020 17:15:31 TEACHER TUTOR by Sam Ivy M.D. [email or web address]/store/[id number]
[2020-12-24 20:53] LABS: Glucose Point of Care 204 mg/dL (70-110)
[2020-12-24] MEDS: atorvastatin 40 mg Tablet 20 MG PO (21:07)
[2020-12-25] VITALS (13 sets, daily range): BP systolic 122–157; BP diastolic 67–110; PULSE 63–92; RESP 14–20; TEMP 36.4–37.3; O2SAT 90–100
[2020-12-25 02:41] LABS: Basophils % 0.2 %; Hematocrit 41.4 % (37.0-47.0); Hemoglobin 12.6 g/dL (11.5-15.3); Lymphocytes # 0.6 10^3/uL (0.8-4.8); Lymphocytes % 4.8 %; Mean Corpuscular HGB Conc 30.4 g/dL (30.0-36.0); Mean Corpuscular Hemoglobin 29.9 pg (28.0-34.0); Mean Corpuscular Volume 98.3 fL (81-99); Mean Platelet Volume 12.1 fL (7.4-10.4); Monocytes # 0.4 10^3/uL (0.2-0.9); Monocytes % 3.1 %; Neutrophils # 11.31 10^3/uL (1.8-7.7); Neutrophils % 91.3 %; Nucleated Red Blood Cells % 0 %; Platelet Count 167 10^3/cmm (130-400); Red Blood Count 4.21 10^6/uL (4.1-5.3); Red Cell Distribution Width 12.3 % (12.1-15.1); White Blood Count 12.4 10^3/uL (4.0-10.0)
[2020-12-25 02:57] LABS: Alanine Aminotransferase 9 U/L (0-33); Albumin Level 2.9 g/dL (3.5-5.2); Alkaline Phosphatase 81 IU/L (35-105); Aspartate Amino Transferase 19 U/L (0-32); Blood Urea Nitrogen 16 mg/dL (8-23); Calcium 8.1 mg/dL (8.5-10.5); Carbon Dioxide 25 mmol/L (22-29); Chloride 103 mmol/L (98-107); Globulin 3.2 g/dL (1.3-4.6); Glomerular Filtration Rate 40.5 mL/min (90-130); Glucose 227 mg/dL (65-115); Magnesium 1.7 mg/dL (1.7-2.3); Osmolality Calculated 290 mOsm/kg (285-295); Phosphorus 3.3 mg/dL (2.5-4.5); Sodium 136 mmol/L (136-145); Total Bilirubin 0.6 mg/dL (0.15-1.2); Total Protein 6.1 g/dL (6.6-8.7)
[2020-12-25 03:02] LABS: Procalcitonin 0.14 ng/mL (0-0.5)
[2020-12-25 03:14] LABS: Anion Gap 12.8 (5-19); Potassium 4.8 mmol/L (3.5-5.1)
[2020-12-25] MEDS: acetaminophen 500 mg Tablet 1000 MG PO ×3 (03:42→21:45)
[2020-12-25] MEDS: sodium chloride 0.9% 1,000 ML 100 ML IV (03:43)
--- NOTE | 2020-12-25 04:30 | PC.NURSE ---
Shift Summary Patient rested without complaints throughout the night. When awake, voiced that she was not having any pain. Neurovascular checks within normal limits.
--- NOTE | 2020-12-25 05:00 | USCV_ITS ---
FerreiraRylie chacon Age: 70 Gender: F : 1950 Exam Date: 12/25/2020 06:34 Ordering Phys: Robbin Bergman MD Technologist: Lawrence Faye Exam Location: [facility] [place] Indication: SOB BP: 143 / HR: 95 Rhythm: Sinus Technical Quality: Very technically difficult study MEASUREMENTS (Male / Female) Normal Values 2D ECHO LV Diastolic Diameter PLAX 3.0 cm 4.2 - 5.9 / 3.9 - 5.3 cm LV Systolic Diameter PLAX 1.8 cm IVS Diastolic Thickness 1.5 cm 0.6 - 1.0 / 0.6 - 0.9 cm IVS Systolic Thickness 2.1 cm LVPW Diastolic Thickness 1.8 cm 0.6 - 1.0 / 0.6 - 0.9 cm LVPW Systolic Thickness 1.7 cm LVOT Diameter 2.1 cm LV Ejection Fraction 2D Teich 72.9 % LV Ejection Fraction MOD 2C 43.5 % LV Ejection Fraction 2C AL 44.0 % LA Diameter 3.6 cm LA Width 3.7 cm LA Height 4.7 cm RA Width 3.4 cm RA Height 4.2 cm Aorta at Sinotubular Diameter 2.5 cm M-MODE Aortic Annulus Diameter 2.9 cm LA Ao Ratio MM 1.2 DOPPLER AV Peak Velocity 135.0 cm/s LVOT Peak Velocity 86.0 cm/s AV Area Cont Eq vti 2.0 cm squared AV Area Cont Eq pk 2.2 cm squared MV Area PHT 5.0 cm squared Mitral E to A Ratio 0.7 MV E' Velocity 48.0 cm/s Mitral E to MV E' Ratio 12.6 Mitral E to LV E' Lateral Ratio 12.4 Mitral E to LV E' Septal Ratio 12.9 TR Peak Velocity 187.0 cm/s TR Peak Gradient 14.0 mmHg TV Peak E Velocity 88.0 cm/s Right Atrial Pressure 3.0 mmHg Pulmonary Artery Systolic Pressu 17.0 mmHg FINDINGS Left Ventricle Normal left ventricular cavity size. Normal left ventricular systolic function. Left ventricular ejection fraction is estimated at 60 %. Grade I/IV diastolic dysfunction (abnormal relaxation filling pattern), normal to mildly elevated filling pressures. Right Ventricle The right ventricle is normal in size and function. Right Atrium The right atrium is normal in size. Left Atrium The left atrium is normal in size. Mitral Valve Severely thickened mitral valve. Severe mitral annular calcification. Severe mitral valve stenosis. No mitral valve regurgitation. Aortic Valve Aortic valve not well visualized. Tricuspid Valve Tricuspid valve not well visualized. Pulmonic Valve Pulmonic valve not well visualized. Pericardium Normal pericardium without effusion. Aorta Normal ascending aorta dimension. CONCLUSIONS 1-Normal left ventricular cavity size. Normal left ventricular systolic function. Left ventricular ejection fraction is estimated at 60 %. Grade I/IV diastolic dysfunction (abnormal relaxation filling pattern), normal to mildly elevated filling pressures. 2-Severely thickened mitral valve. Severe mitral annular calcification. Severe mitral valve stenosis. No mitral valve regurgitation. 3-Aortic valve not well visualized. 4-There is no pericardial effusion. 5-Pulmonary artery systolic pressure is within normal limits. 6-Cannot compare from prior exam due to suboptimal image quality Tegan Powers MD (Electronically Signed) Final Date: 25 December 2020 18:47 S
[2020-12-25] MEDS: oxyCODONE 5 mg IR Tab/Cap PO ×3 (06:20→16:17)
[2020-12-25 06:25] LABS: Glucose Point of Care 223 mg/dL (70-110)
--- NOTE | 2020-12-25 07:00 | XR_ITS ---
WS: [id number] Exam: XR chest 1V portable [id number] Date/Time of Exam: 12/25/2020 6:50 AM Reason For Exam: sob Comparison 12/23/2020. The lungs remain clear and fully expanded. Normal heart size. Large calcified mediastinal and perihil ar lymph nodes. No pleural effusions. XR/XR chest 1V portable [id number] IMPRESSION: 1. No acute cardiopulmonary finding. No change.
[2020-12-25] MEDS: levothyroxine 88 mcg Tablet PO (08:20)
[2020-12-25] MEDS: sennosides-docusate Tablet 2 TAB PO ×2 (08:20→17:48)
[2020-12-25] MEDS: FUROsemide 10 mg/mL SDV 4mL 40 MG IVP (09:25)
--- NOTE | 2020-12-25 09:38 | PC.CHAP ---
Pastoral Care Encounter/Spiritual Assessment Type of Contact [] Declined ladies underwear operator visit [] Patient/Family/Request visit [] Outpatient visit [] Follow-up visit [] Physician referral [] Code/Alert [x] Routine visit [] Staff referral [] Actively dying [] Patient sleeping [] Family support [] [] Out of room [] Palliative care [] [] Receiving care in room [] Pre-surgical visit [] Trauma [] Long length of stay [] ICU visit [] Other: Relational/Emotional Strength [] Patient feels connected with others/family/visitors/staff [] Distress [] Loneliness/isolation [] Abandonment Spirituality of Patient [x] Person of Jessie [x] Attends Spiritism of their Jessie [x] Believes in Prayer [] Reads Bible or Scientology materials [] There are Spiritual issues to be addressed Terminal Block Assembler Interventions [x] Prayer [x] Active listening [] Non-anxious presence [] Spiritual/emotional support [] Crisis/trauma care [] Spiritual counseling [] Bereavement support [] Provided bereavement packet [x] Provided Bible/devotional materials [] Provided toy/stuffed animal, coloring book to patient or family member [] Provided Communion [] Anointing/[place] [] Salvation [x] Completed spiritual assessment [] Other: Impact on Illness or Injury [] Angry [] Fearful [] Anxious [] Often cries [] Exhaustion [] Unable to work [] Unable to attend tenriism [] Unable to walk/stand [] Unable to read [] Unable to drive [] Unable to eat/drink [] Unable to sleep [] Unable to be with family [] Patient intubated [] Other: Summary patient having good time visiting room mate feeling great Time spent with patient 15 min
[2020-12-25 11:13] LABS: Glucose Point of Care 253 mg/dL (70-110)
--- NOTE | 2020-12-25 11:17 | P.PN_ITS ---
Subjective Subjective: Interval history: This morning patient was examined, she is on 2 L nasal cannula, she tells me that she uses oxygen as needed at home, no fevers, no chills, she is adamant about going home, is getting ready to work with physical therapy, tells me she does not want to go to a long term because she afraid of Covid and not being able to see her family Vitals/I&O/Wt Last Vital Signs Temp 99.2 F 12/25/20 10:53 Pulse 79 12/25/20 10:53 Resp 18 12/25/20 10:53 BP 122/67 12/25/20 10:53 Pulse Ox 100 12/25/20 10:53 12/24/20 12/25/20 12/25/20 22:59 06:59 14:59 Intake Total 1160 / 1497 50 / 1547 360 / 360 Output Total 0 / 0 500 / 500 Balance 1160 / 1497 -450 / 1047 360 / 360 Weight last 48 hrs Weight 104.326 kg Physical Exam Narrative: EXAM NARRATIVE: Right arm in sling Const: COMMON NORMALS: no acute distress and patient oriented x3 HENMT: COMMON NORMALS: normocephalic HEAD & SCALP: normocephalic Neck/C-Spine: COMMON NORMALS: no JVD Resp: COMMON NORMALS: normal respiratory effort, No retractions, No use of accessory muscles and clear to auscultation bilaterally AUSCULTATION: clear to auscultation bilaterally Cardio: COMMON NORMALS: no JVD, regular rate, regular rhythm, S1 normal heart sound present and S2 normal heart sound present RATE: regular rate RHYTHM: regular rhythm HEART SOUNDS: S1 normal heart sound present and S2 normal heart sound present GI: COMMON NORMALS: Normal to inspection, nondistended, normoactive bowel sounds present, Soft to palpation, non-tender, No hepatosplenomegaly present, no masses and no bruits PALPATION: Yes Soft to palpation and Yes No hepa tosplenomegaly present Extremity: COMMON NORMALS: capillary refill normal, no clubbing, cyanosis or edema, no calf tenderness and no pedal edema NARRATIVE EXTREMITY EXAM: Mild lymphedema Neuro: COMMON NORMALS: patient oriented x3 Psych: COMMON NORMALS: mental status grossly normal Urinary Catheter Management^: Handy Latex: Cath Placed During This Visit: yes, but has since been removed by the nurse Reason for Continuing Indwelling Catheter: Decision to DC Catheter Urinary Catheter Date of Insertion: 12/24/20 Urinary Catheter Time of Insertion: 04:30 Date Urinary Catheter Removed: 12/25/20 Time Urinary Catheter Discontinued: 06:15 Data : 12/25/20 01:55 12/25/20 01:55 A&P Assessment and plan (1) Hip fracture: Status: Deleted Qualifiers: Encounter type: initial encounter Fracture type: closed Laterality: right Qualified Code(s): S72.001A - Fracture of unspecified part of neck of right femur, initial encounter for closed fracture (2) Shoulder dislocation: Status: Acute Qualifiers: Encounter type: initial encounter Laterality: right Qualified Code(s): S43.004A - Unspecified dislocation of right shoulder joint, initial encounter Additional A&P Information Right femoral neck fracture Patient sustained a mechanical fall Status post right hip bipolar arthroplasty by Dr. Ayala postop day 1 Pain control and anticoagulation as per orthopedic team PT OT residential versus home health care will give 1 dose of Lasix today Urinary tract infection, on Rocephin EKG shows junctional rhythm, currently repeat EP EKG shows normal sinus rhythm, QTC 452 ms, no chest pain complaints, will order echo, telemetry monitoring, no chest pain complaints On Aspir 81 milligrams, atorvastatin 20 mg Anterior dislocation right shoulder which was reduced by Dr. Johnson, no vascular or neurological compromise noted, currently in a sling Type 2 diabetes: I will keep her on insulin low-dose sliding scale Chronic kidney disease stage 4: No acute exacerbation creatinine seems to be around baseline Leukocytosis possibly stress related versus UTI, start on Rocephin Full code Currently on a general diet DVT prophylaxis SCDs, Lovenox, Attestations Medical Necessity Statement*: Patient requires hospitalization for right f emoral neck fracture, shoulder dislocation, Coding Level of Care Code Acute Operations Professional for [facility] Fwd Diagnoses Hip fracture S72.001A Encounter type: initial encounter Fracture type: closed Laterality: right Shoulder dislocation S43.004A Encounter type: initial encounter Laterality: right
[2020-12-25] MEDS: calcium acetate 667 mg Capsule 2001 MG PO (11:21)
[2020-12-25] MEDS: enoxaparin 40 mg/0.4 mL Syringe SUBCUT (11:31)
--- NOTE | 2020-12-25 12:49 | P.PN_ITS ---
Subjective Subjective: Interval history: Right hip and right shoulder pain controlled with meds. Did well with therapy this morning. Vitals/I&O/Wt Last Vital Signs Temp 99.2 F 12/25/20 10:53 Pulse 79 12/25/20 10:53 Resp 18 12/25/20 11:20 BP 122/67 12/25/20 10:53 Pulse Ox 100 12/25/20 10:53 12/24/20 12/25/20 12/25/20 22:59 06:59 14:59 Intake Total 1160 / 1497 50 / 1547 600 / 600 Output Total 0 / 0 500 / 500 300 / 300 Balance 1160 / 1497 -450 / 1047 300 / 300 Weight last 48 hrs Weight 230 lb Physical Exam Narrative: EXAM NARRATIVE: Right hip dressing clean and dry. Minimal swelling right thigh. Urinary Catheter Management^: Handy Latex: Cath Placed During This Visit: yes, but has since been removed by the nurse Reason for Continuing Indwelling Catheter: Decision to DC Catheter Urinary Catheter Date of Insertion: 12/24/20 Urinary Catheter Time of Insertion: 04:30 Date Urinary Catheter Removed: 12/25/20 Time Urinary Catheter Discontinued: 06:15 Data : 12/25/20 01:55 12/25/20 01:55 A&P Assessment and plan (1) Postoperative state: Continue with physical therapy. She seems to have done surprisingly well this morning. Perhaps discharge home could be an option. She does have family available to help home. Status: Acute (2) Shoulder dislocation: Occupational Therapy will continue to work with range of motion. She should be able to use the arm for weightbearing with the walker. I told her that if she continues to have pain and weakness we could consider an MRI at a later date. Status: Acute Qualifiers: Encounter type: initial encounter Laterality: right Qualified Code(s): S43.004A - Unspecified dislocation of right shoulder joint, initial encounter Attestations Medical Necessity Statement*: Needs continued therapy Coding Level of Care Code Acute Sap Solution Manager Consultant for Isma Echols Diagnoses Postoperative state Z98.890 Shoulder dislocation S43.004A Encounter type: initial encounter Laterality: right
[2020-12-25 16:15] LABS: Glucose Point of Care 181 mg/dL (70-110)
[2020-12-25] MEDS: ondansetron 2 mg/ML SDV 2 mL 4 MG IVP ×2 (16:20→22:03)
--- NOTE | 2020-12-25 18:37 | PC.NURSE ---
SHIFT SUMMARY PATIENT HAS DONE WELL TODAY. SHE DID WELL WITH THERAPY. GOOD URINE OUTPUT AFTER CHRISTIE CATHETER REMOVAL. PAIN CONTROLLED WITH ORAL PAIN MEDICATIONS. GOOD NEUROVASCULAR CHECKS. SURGICAL DRESSING IS C/D/I. CONTINUE TO MONITOR.
[2020-12-25] MEDS: aspirin 81 mg EC Tablet PO (21:43)
[2020-12-25] MEDS: atorvastatin 40 mg Tablet 20 MG PO (21:43)
[2020-12-25 22:01] LABS: Glucose Point of Care 257 mg/dL (70-110)
[2020-12-25] MEDS: morphine 4 mg/mL SDV 1 mL 2 MG IVP (22:03)
[2020-12-26] VITALS (16 sets, daily range): BP systolic 97–186; BP diastolic 70–97; PULSE 81–91; RESP 14–18; TEMP 36.4–37.2; O2SAT 92–99
--- NOTE | 2020-12-26 | XR_ITS ---
WS: [id number] Exam: XR shoulder RT 1V [id number] Date/Time of Exam: 12/26/2020 12:00 AM Reason For Exam: closed reduction A single intraoperative C-arm image of the right glenohumeral joint in the axillary projection is sub mitted for evaluation. The previously described right shoulder dislocation appears to have been reduced. No obvious bony inj ury identified on this single image presented.
--- NOTE | 2020-12-26 | SCC_ITS ---
Procedure Done: Closed reduction right glenohumeral joint 2.0 seconds of fluoroscopic guidance, for a cumulative dose of 0.30 mGy, was provided to Dr. Ayala by the radiology department. C-arm images of the RIGHT shoulder were saved for the patient's permanent record. THOM
[2020-12-26 03:04] LABS: Basophils # 0.1 10^3/uL (0.0-0.1); Basophils % 0.3 %; Eosinophils # 0.2 10^3/uL (0.0-0.8); Hematocrit 39.4 % (37.0-47.0); Hemoglobin 12.5 g/dL (11.5-15.3); Lymphocytes # 1.8 10^3/uL (0.8-4.8); Lymphocytes % 11.9 %; Mean Corpuscular HGB Conc 31.7 g/dL (30.0-36.0); Mean Corpuscular Hemoglobin 30.3 pg (28.0-34.0); Mean Corpuscular Volume 95.6 fL (81-99); Mean Platelet Volume 12.1 fL (7.4-10.4); Monocytes # 1.3 10^3/uL (0.2-0.9); Monocytes % 8.5 %; Neutrophils # 11.92 10^3/uL (1.8-7.7); Neutrophils % 77.8 %; Nucleated Red Blood Cells % 0 %; Platelet Count 203 10^3/cmm (130-400); Red Blood Count 4.12 10^6/uL (4.1-5.3); Red Cell Distribution Width 12.2 % (12.1-15.1); White Blood Count 15.3 10^3/uL (4.0-10.0)
[2020-12-26 03:31] LABS: Alanine Aminotransferase 6 U/L (0-33); Albumin Level 3.1 g/dL (3.5-5.2); Alkaline Phosphatase 85 IU/L (35-105); Aspartate Amino Transferase 25 U/L (0-32); Blood Urea Nitrogen 25 mg/dL (8-23); Calcium 8.6 mg/dL (8.5-10.5); Carbon Dioxide 23 mmol/L (22-29); Chloride 101 mmol/L (98-107); Globulin 3.1 g/dL (1.3-4.6); Glomerular Filtration Rate 29.7 mL/min (90-130); Glucose 283 mg/dL (65-115); Magnesium 1.8 mg/dL (1.7-2.3); Osmolality Calculated 299 mOsm/kg (285-295); Phosphorus 3.2 mg/dL (2.5-4.5); Sodium 137 mmol/L (136-145); Total Bilirubin 0.5 mg/dL (0.15-1.2); Total Protein 6.2 g/dL (6.6-8.7)
[2020-12-26 03:34] LABS: Procalcitonin 0.27 ng/mL (0-0.5)
[2020-12-26] MEDS: ondansetron 2 mg/ML SDV 2 mL 4 MG IVP (04:10)
[2020-12-26] MEDS: oxyCODONE 5 mg IR Tab/Cap PO ×2 (04:11→16:36)
[2020-12-26 06:27] LABS: Glucose Point of Care 221 mg/dL (70-110)
--- NOTE | 2020-12-26 07:51 | XR_ITS ---
WS: [id number] Exam: XR shoulder RT 1V [id number] Date/Time of Exam: 12/26/2020 7:54 AM Reason For Exam: R dislocation Comparison 12/24/2020. There is inferior medial dislocation of the humeral head. No fracture or dislocation. DJD of the nataly oid and AC joint. Normal soft tissues. XR/XR shoulder RT 1V [id number] IMPRESSION: 1. Dislocated humeral head. No obvious acute fracture.
--- NOTE | 2020-12-26 07:51 | P.PN_ITS ---
Subjective Subjective: Interval history: Patient attempted to bear weight on walker without armrest and felt severe pain in the shoulder which has persisted. Doing well with right hip Vitals/I&O/Wt Last Vital Signs Temp 97.6 F 12/26/20 03:50 Pulse 91 12/26/20 06:00 Resp 18 12/26/20 04:11 BP 186/97 12/26/20 03:50 Pulse Ox 92 12/26/20 03:50 12/25/20 12/26/20 12/26/20 22:59 06:59 14:59 Intake Total 270 / 920 Output Total 200 / 700 600 / 1300 Balance 70 / 220 -600 / -380 Physical Exam Narrative: EXAM NARRATIVE: Patient has anterior prominence over shoulder and absent numeral head palpable in subacromial space. Exquisite pain with any attempts at motion of the shoulder. Right hip incision looks good Urinary Catheter Management^: Handy Latex: Cath Placed During This Visit: yes, but has since been removed by the nurse Reason for Continuing Indwelling Catheter: Decision to DC Catheter Urinary Catheter Date of Insertion: 12/24/20 Urinary Catheter Time of Insertion: 04:30 Date Urinary Catheter Removed: 12/25/20 Time Urinary Catheter Discontinued: 06:15 Data : 12/26/20 02:30 12/26/20 02:30 A&P Assessment and plan (1) Postoperative state: Status: Acute (2) Displaced fracture of right femoral neck: Doing well with hemiarthroplasty. Limited by weightbearing status on right shoulder Status: Resolved (3) Shoulder dislocation: The patient appears to have redislocating her shoulder. I will get a stat x-ray this morning. We will likely proceed for a closed reduction in the OR. Status: Acute Qualifiers: Encounter type: initial encounter Laterality: right Qualified Code(s): S43.004A - Unspecified dislocation of right shoulder joint, initial encounter Attestations Medical Necessity Statement*: Discharged held pending status of right shoulder and likely trip to the OR. Coding Level of Care Code Acute Pointer Machine Operator for Isma Echols Diagnoses Postoperative state Z98.890 Displaced fracture of right femoral neck S72.001A Shoulder dislocation S43.004A Encounter type: initial encounter Laterality: right
--- NOTE | 2020-12-26 09:22 | PC.NURSE ---
0700 AM NOTE LATE ENTRY PT COMPLAINING OF RIGHT SHOULDER PAIN - RIGHT SHOULDER SLING IN PLACE - NOTED RADIAL PULSE TO BE PALPABLE - HAND WARM AND PINK, PT DOES COMPLAIN OF SOME NUMBNESS IN HAND - ABLE TO MOVE FINGERS AND HAND APPROPRIATELY
--- NOTE | 2020-12-26 09:45 | PC.OT ---
OT note: Received report pt to go to surgery today for shoulder dislocation. Will hold at this time.
--- NOTE | 2020-12-26 10:09 | PC.CHAP ---
Pastoral Care Encounter/Spiritual Assessment Type of Contact [] Declined concrete rubber visit [] Patient/Family/Request visit [] Outpatient visit [] Follow-up visit [] Physician referral [] Code/Alert [x] Routine visit [] Staff referral [] Actively dying [] Patient sleeping [] Family support [] [] Out of room [] Palliative care [] [] Receiving care in room [] Pre-surgical visit [] Trauma [] Long length of stay [] ICU visit [] Other: Relational/Emotional Strength [x] Patient feels connected with others/family/visitors/staff [] Distress [] Loneliness/isolation [] Abandonment Spirituality of Patient [] Person of Jessie [] Attends Yazdanism of their Jessie [] Believes in Prayer [] Reads Bible or Scientologist materials [] There are Spiritual issues to be addressed Furniture Designer Interventions [x] Prayer [x] Active listening [] Non-anxious presence [] Spiritual/emotional support [] Crisis/trauma care [] Spiritual counseling [] Bereavement support [] Provided bereavement packet [] Provided Bible/devotional materials [] Provided toy/stuffed animal, coloring book to patient or family member [] Provided Communion [] Anointing/[place] [] Salvation [x] Completed spiritual assessment [] Other: Impact on Illness or Injury [] Angry [] Fearful [] Anxious [] Often cries [] Exhaustion [] Unable to work [] Unable to attend presybeterian [] Unable to walk/stand [] Unable to read [] Unable to drive [] Unable to eat/drink [] Unable to sleep [] Unable to be with family [] Patient intubated [] Other: Summary patient feeling much better1 Time spent with patient 10 min 10 min
--- NOTE | 2020-12-26 10:12 | ANES.PAUD2 ---
Pre-Anesthetic Update Pre-Anesthetic Assessment: Date of Surgery/Procedure: 12/26/20 Preop Diagnosis: Right femoral neck fracture Proposed Procedure: Operation Date: 12/24/20 12:45 Proposed Procedures p Hemiarthroplasty Hip(Right) - Rian Ayala MD Operation Date: 12/26/20 10:00 Proposed Procedures p Closed Reduction Shoulder(Right) - Rian Ayala MD Any changes to Pre-Anesthetic Assessment?: No Last Intake: Intake Last Liquid Date 12/26/20 Last Liquid Time 04:00 Last Solid Date 12/25/20 Last Solid Time 19:00 Labs Last 48hrs: Laboratory Results - last 48 hr 12/24/20 12/24/20 12/24/20 09:58 10:00 10:47 WBC RBC Hgb Hct MCV MCH MCHC RDW Plt Count MPV Neut % (Auto) Lymph % (Auto) Daniels % (Auto) Eos % (Auto) Baso % (Auto) Neut # (Auto) Lymph # (Auto) Daniels # (Auto) Eos # (Auto) Baso # (Auto) Nucleated RBC % (a uto) Nucleated RBCs # Sodium Potassium Chloride Carbon Dioxide Anion Gap BUN Creatinine GFR Calculation Glucose POC Glucose 143 H Calculated Osmolal ity Calcium Phosphorus Magnesium Total Bilirubin AST ALT Alkaline Phosphata se Total Protein Albumin Globulin Procalcitonin Urine Color Dark yellow Urine Appearance Clear Urine pH 5 Ur Specific Gravit y 1.025 Urine Protein Neg Urine Glucose (UA) 1+ Urine Ketones 1+ H Urine Blood 2+ H Urine Nitrate Negative Urine Bilirubin 1+ H Urine Urobilinogen 1 H Ur Leukocyte Sonya ase Negative Urine RBC 5-10 H Urine WBC 0-4 H Ur Squamous Epith Cells 0-4 H Ur Transition Epit h Cell 0-4 Amorphous Sediment Not Reportable Urine Bacteria Trace Urine Mucus 1+ SARS-CoV-2 Ag (Rap id) Negative 12/24/20 12/24/20 12/25/20 14:03 20:47 01:55 WBC 12.4 H RBC 4.21 Hgb 12.6 Hct 41.4 MCV 98.3 MCH 29.9 MCHC 30.4 RDW 12.3 Plt Count 167 MPV 12.1 H Neut % (Auto) 91.3 Lymph % (Auto) 4.8 Daniels % (Auto) 3.1 Eos % (Auto) 0.0 Baso % (Auto) 0.2 Neut # (Auto) 11.31 H Lymph # (Auto) 0.6 L Daniels # (Auto) 0.4 Eos # (Auto) 0.0 Baso # (Auto) 0.0 Nucleated RBC % (a uto) 0 Nucleated RBCs # 0.0 Sodium Potassium Chloride Carbon Dioxide Anion Gap BUN Creatinine GFR Calculation Glucose POC Glucose 176 H 204 H Calculated Osmolal ity Calcium Phosphorus Magnesium Total Bilirubin AST ALT Alkaline Phosphata se Total Protein Albumin Globulin Procalcitonin Urine Color Urine Appearance Urine pH Ur Specific Gravit y Urine Protein Urine Glucose (UA) Urine Ketones Urine Blood Urine Nitrate Urine Bilirubin Urine Urobilinogen Ur Leukocyte Sonya ase Urine RBC Urine WBC Ur Squamous Epith Cells Ur Transition Epit h Cell Amorphous Sediment Urine Bacteria Urine Mucus SARS-CoV-2 Ag (Rap id) 12/25/20 12/25/20 12/25/20 01:55 01:55 06:21 WBC RBC Hgb Hct MCV MCH MCHC RDW Plt Count MPV Neut % (Auto) Lymph % (Auto) Daniels % (Auto) Eos % (Auto) Baso % (Auto) Neut # (Auto) Lymph # (Auto) Daniels # (Auto) Eos # (Auto) Baso # (Auto) Nucleated RBC % (a uto) Nucleated RBCs # Sodium 136 Potassium 4.8 Chloride 103 Carbon Dioxide 25 Anion Gap 12.8 BUN 16 Creatinine 1.3 H GFR Calculation 40.5 L Glucose 227 H POC Glucose 223 H Calculated Osmolal ity 290 Calcium 8.1 L Phosphorus 3.3 Magnesium 1.7 Total Bilirubin 0.6 AST 19 ALT 9 Alkaline Phosphata se 81 Total Protein 6.1 L Albumin 2.9 L Globulin 3.2 Procalcitonin 0.14 Urine Color Urine Appearance Urine pH Ur Specific Gravit y Urine Protein Urine Glucose (UA) Urine Ketones Urine Blood Urine Nitrate Urine Bilirubin Urine Urobilinogen Ur Leukocyte Sonya ase Urine RBC Urine WBC Ur Squamous Epith Cells Ur Transition Epit h Cell Amorphous Sediment Urine Bacteria Urine Mucus SARS-CoV-2 Ag (Rap id) 12/25/20 12/25/20 12/25/20 10:55 15:49 20:06 WBC RBC Hgb Hct MCV MCH MCHC RDW Plt Count MPV Neut % (Auto) Lymph % (Auto) Daniels % (Auto) Eos % (Auto) Baso % (Auto) Neut # (Auto) Lymph # (Auto) Daniels # (Auto) Eos # (Auto) Baso # (Auto) Nucleated RBC % (a uto) Nucleated RBCs # Sodium Potassium Chloride Carbon Dioxide Anion Gap BUN Creatinine GFR Calculation Glucose POC Glucose 253 H 181 H 257 H Calculated Osmolal ity Calcium Phosphorus Magnesium Total Bilirubin AST ALT Alkaline Phosphata se Total Protein Albumin Globulin Procalcitonin Urine Color Urine Appearance Urine pH Ur Specific Gravit y Urine Protein Urine Glucose (UA) Urine Ketones Urine Blood Urine Nitrate Urine Bilirubin Urine Urobilinogen Ur Leukocyte Sonya ase Urine RBC Urine WBC Ur Squamous Epith Cells Ur Transition Epit h Cell Amorphous Sediment Urine Bacteria Urine Mucus SARS-CoV-2 Ag (Rap id) 12/26/20 12/26/20 12/26/20 02:30 02:30 02:30 WBC 15.3 H RBC 4.12 Hgb 12.5 Hct 39.4 MCV 95.6 MCH 30.3 MCHC 31.7 RDW 12.2 Plt Count 203 MPV 12.1 H Neut % (Auto) 77.8 Lymph % (Auto) 11.9 Daniels % (Auto) 8.5 Eos % (Auto) 1.0 Baso % (Auto) 0.3 Neut # (Auto) 11.92 H Lymph # (Auto) 1.8 Daniels # (Auto) 1.3 H Eos # (Auto) 0.2 Baso # (Auto) 0.1 Nucleated RBC % (a uto) 0 Nucleated RBCs # 0.0 Sodium 137 Potassium 4.0 Chloride 101 Carbon Dioxide 23 Anion Gap 17.0 BUN 25 H Creatinine 1.7 H GFR Calculation 29.7 L Glucose 283 H POC Glucose Calculated Osmolal ity 299 H Calcium 8.6 Phosphorus 3.2 Magnesium 1.8 Total Bilirubin 0.5 AST 25 ALT 6 Alkaline Phosphata se 85 Total Protein 6.2 L Albumin 3.1 L Globulin 3.1 Procalcitonin 0.27 Urine Color Urine Appearance Urine pH Ur Specific Gravit y Urine Protein Urine Glucose (UA) Urine Ketones Urine Blood Urine Nitrate Urine Bilirubin Urine Urobilinogen Ur Leukocyte Sonya ase Urine RBC Urine WBC Ur Squamous Epith Cells Ur Transition Epit h Cell Amorphous Sediment Urine Bacteria Urine Mucus SARS-CoV-2 Ag (Rap id) 12/26/20 06:08 WBC RBC Hgb Hct MCV MCH MCHC RDW Plt Count MPV Neut % (Auto) Lymph % (Auto) Daniels % (Auto) Eos % (Auto) Baso % (Auto) Neut # (Auto) Lymph # (Auto) Daniels # (Auto) Eos # (Auto) Baso # (Auto) Nucleated RBC % (a uto) Nucleated RBCs # Sodium Potassium Chloride Carbon Dioxide Anion Gap BUN Creatinine GFR Calculation Glucose POC Glucose 221 H Calculated Osmolal ity Calcium Phosphorus Magnesium Total Bilirubin AST ALT Alkaline Phosphata se Total Protein Albumin Globulin Procalcitonin Urine Color Urine Appearance Urine pH Ur Specific Gravit y Urine Protein Urine Glucose (UA) Urine Ketones Urine Blood Urine Nitrate Urine Bilirubin Urine Urobilinogen Ur Leukocyte Sonya ase Urine RBC Urine WBC Ur Squamous Epith Cells Ur Transition Epit h Cell Amorphous Sediment Urine Bacteria Urine Mucus SARS-CoV-2 Ag (Rap id) Vitals: Temperature 97.6 F 12/26/20 08:25 Temperature Source Oral 12/26/20 08:25 Pulse Rate 88 12/26/20 08:25 Pulse Rhythm 12/24/20 08:00 Pulse Strength 3+ Normal 12/26/20 06:46 Respiratory Rate 18 12/26/20 08:25 Respiratory Effort Non-Labored 12/26/20 04:11 Respiratory Depth Normal 12/26/20 04:11 Respiratory Patter n 12/25/20 22:03 Blood Pressure 159/83 12/26/20 08:25 Blood Pressure Ginny n 108 12/26/20 08:25 Blood Pressure Pos ition Supine 12/24/20 04:00 Pulse Oximetry 96 12/26/20 08:25 Oxygen Delivery Me thod 12/24/20 18:45 Oxygen Flow Rate 2 12/25/20 20:00 Sepsis Recent Feve r Within 48 Hours No 12/23/20 20:20 Sepsis New/Unexpla ined Change in Men stefanie Status No 12/23/20 20:20 Exam: Pre-Anes Outpt Exam: alert, oriented x 3, clear to auscultation bilaterally and regular rate & rhythm Cardiac Studies: No Data to Display
--- NOTE | 2020-12-26 10:45 | P.PN_ITS ---
Subjective Subjective: Interval history: Patient was seen this morning, she tells me that she is ambulating with assistance to the commode, but when she put too much pressure on her right shoulder, she is severe right shoulder pain, she has developed recurrent right shoulder dislocation, and will require surgical intervention by Dr. Ayala, no fevers overnight, no chills, no nausea, vomiting Vitals/I&O/Wt Last Vital Signs Temp 97.6 F 12/26/20 08:25 Pulse 88 12/26/20 08:25 Resp 18 12/26/20 08:25 BP 159/83 12/26/20 08:25 Pulse Ox 96 12/26/20 08:25 12/25/20 12/26/20 12/26/20 22:59 06:59 14:59 Intake Total 270 / 920 Output Total 200 / 700 600 / 1300 Balance 70 / 220 -600 / -380 - Physical Exam Narrative: EXAM NARRATIVE: Right arm in sling Const: COMMON NORMALS: no acute distress and patient oriented x3 HENMT: COMMON NORMALS: normocephalic HEAD & SCALP: normocephalic Neck/C-Spine: COMMON NORMALS: no JVD Resp: COMMON NORMALS: normal respiratory effort, No retractions, No use of accessory muscles and clear to auscultation bilaterally AUSCULTATION: clear to auscultation bilaterally Cardio: COMMON NORMALS: no JVD, regular rate, regular rhythm, S1 normal heart sound present and S2 normal heart sound present RATE: regular rate RHYTHM: regular rhythm HEART SOUNDS: S1 normal heart sound present, S2 normal heart sound present and Murmur heart sound present GI: COMMON NORMALS: Normal to inspection, nondistended, normoactive bowel sounds present, Soft to palpation, non-tender, No hepatosplenomegaly present, no masses and no bruits PALPATION: Yes Soft to palpation and Yes No hepatosplenomegaly present Extremity: COMMON NORMALS: capillary refill normal, no clubbing, cyanosis or edema, no calf tenderness and no pedal edema Neuro: COMMON NORMALS: patient oriented x3 Psych: COMMON NORMALS: mental status grossly normal Urinary Catheter Management^: Handy Latex: Cath Placed During This Visit: yes, but has since been removed by the nurse Reason for Continuing Indwelling Catheter: Decision to DC Catheter Urinary Catheter Date of Insertion: 12/24/20 Urinary Catheter Time of Insertion: 04:30 Date Urinary Catheter Removed: 12/25/20 Time Urinary Catheter Discontinued: 06:15 Data : 12/26/20 02:30 12/26/20 02:30 A&P Assessment and plan (1) Hip fracture: Status: Deleted Qualifiers: Encounter type: initial encounter Fracture type: closed Laterality: right Qualified Code(s): S72.001A - Fracture of unspecified part of neck of right femur, initial encounter for closed fracture (2) Shoulder dislocation: Status: Acute Qualifiers: Encounter type: initial encounter Laterality: right Qualified Code(s): S43.004A - Unspecified dislocation of right shoulder joint, initial encounter Additional A&P Information Right femoral neck fracture Patient sustained a mechanical fall Status post right hip bipolar arthroplasty by Dr. Ayala postop day 2 Pain control and anticoagulation as per orthopedic team PT OT long term versus home health care Urinary tract infection has finished antibiotic therapy EKG shows junctional rhythm, currently repeat EP EKG shows normal sinus rhythm, QTC 452 ms, no chest pain complaints, telemetry monitoring, no chest pain complaints On aspirin 81 mg, atorvastatin 20 mg Severe mitral stenosis, does have some complaints of shortness of breath with exertion, no chest pain, no lightheadedness, no dizziness, no history of A. fib, will require surgical evaluation Anterior dislocation right shoulder which was reduced by Dr. Johnson, has redislocated right shoulder, will require surgical intervention by Dr. Caraballo clinically n.p.o. Type 2 diabetes: I will keep her on insulin low-dose sliding scale Chronic kidney disease stage 4: No acute exacerbation creatinine seems to be around baseline Hypertension, add Norvasc 10 mg daily Full code Currently on a diabetic diet, n.p.o. 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
--- NOTE | 2020-12-26 11:22 | PM.OP ---
Operative Report Date of procedure: December 26, 2020 Pre-op Diagnosis: Right shoulder dislocation Post-op diagnosis: same Post-op Findings: Same Procedure Done: Closed reduction right glenohumeral joint Pathology: none sent Anesthesia: General Estimated blood loss (mL): 0 Findings: The patient had a anterior shoulder dislocation and a satisfactory closed reduction visualized under fluoroscopy Condition: stable Disposition: PACU Procedure: Patient was taken to the operating room and sedated by anesthesia. She was moved to the OR table. With gentle longitudinal and lateral traction across the proximal humerus the humeral head was felt to reduce. She was placed in a sling transferred to her PACU bed and taken there in stable condition.
--- NOTE | 2020-12-26 11:49 | PC.NURSE ---
OR NOTE BEDSIDE REPORT GIVEN PER LUCRECIA RN OR NURSE - 02 2L NC NOTED TO BE IN PLACE - AP RRR - LUNGS DIMINISHED THROUGHOUT ABD - SOFT WITH NO DISTENTION - BS WNL - NOTED RIGHT ARM TO HAVE SLING IN PLACE - NORMAL RIGHT RADIAL PULSE NOTED - WILL APPLY ICE TO SHOULDER PER ORDER - IV X2 PIID TO LEFT FA - NOTED RIGHT HIP DRESSING TO BE C/D/I WITH NO REDNESS OR DRAINAGE NOTED - FIRST ICE IN PLACE ARIC SCD'S IN PLACE - PT ALERT AND ORIENTATED - DENIES PAIN OR NEEDS AT PRESENT TIME -WILL MONITOR
[2020-12-26 12:03] LABS: Glucose Point of Care 212 mg/dL (70-110)
[2020-12-26] MEDS: acetaminophen 500 mg Tablet 1000 MG PO ×2 (12:12→21:08)
[2020-12-26] MEDS: calcium acetate 667 mg Capsule 2001 MG PO (12:12)
[2020-12-26] MEDS: enoxaparin 40 mg/0.4 mL Syringe SUBCUT (12:15)
--- NOTE | 2020-12-26 12:22 | ANE.PACU2 ---
Inpatient post-anesthesia follow up: Airway intact: Yes Vital signs: Temperature 97.8 F Pulse Rate [Left] 101 Pulse Rate 86 Respiratory Rate 16 Blood Pressure [Le ft Arm] 123/76 Blood Pressure 156/80 Pulse Oximetry 99 Oxygen Delivery Me thod Room Air Oxygen Flow Rate 6 Fraction of Inspir ed Oxygen Hydration adequate: Yes Nausea and vomiting: No Pain level: 2 Mental status: Baseline
[2020-12-26 17:01] LABS: Glucose Point of Care 170 mg/dL (70-110)
--- NOTE | 2020-12-26 18:29 | PC.NURSE ---
SHIFT NOTE REPETITIVE EDUCATION GIVEN TO PT EACH TIME UP TO THE BSC TO NOT BEAR WEIGHT TO RIGHT ARM - RIGHT ARM REMAINS IN IMMOBILIZER - ABD PILLOW REMAINED IN PLACE THROUGHOUT SHIFT
[2020-12-26] MEDS: atorvastatin 40 mg Tablet 20 MG PO (21:08)
[2020-12-26] MEDS: aspirin 81 mg EC Tablet PO (21:09)
[2020-12-26 21:18] LABS: Glucose Point of Care 201 mg/dL (70-110)
[2020-12-27] VITALS (10 sets, daily range): BP systolic 102–150; BP diastolic 52–83; PULSE 77–93; RESP 16–19; TEMP 36.5–37.1; O2SAT 90–99
[2020-12-27 02:37] LABS: Basophils # 0.1 10^3/uL (0.0-0.1); Basophils % 0.5 %; Eosinophils # 0.9 10^3/uL (0.0-0.8); Hematocrit 35.5 % (37.0-47.0); Hemoglobin 11.2 g/dL (11.5-15.3); Lymphocytes % 17.6 %; Mean Corpuscular HGB Conc 31.5 g/dL (30.0-36.0); Mean Corpuscular Hemoglobin 29.9 pg (28.0-34.0); Mean Corpuscular Volume 94.7 fL (81-99); Mean Platelet Volume 12.4 fL (7.4-10.4); Monocytes # 1.1 10^3/uL (0.2-0.9); Monocytes % 9.3 %; Neutrophils # 7.25 10^3/uL (1.8-7.7); Neutrophils % 64.2 %; Nucleated Red Blood Cells % 0 %; Platelet Count 173 10^3/cmm (130-400); Red Blood Count 3.75 10^6/uL (4.1-5.3); Red Cell Distribution Width 12.3 % (12.1-15.1); White Blood Count 11.3 10^3/uL (4.0-10.0)
[2020-12-27 03:05] LABS: Alanine Aminotransferase < 5 U/L (0-33); Albumin Level 2.8 g/dL (3.5-5.2); Alkaline Phosphatase 74 IU/L (35-105); Anion Gap 11.2 (5-19); Aspartate Amino Transferase 17 U/L (0-32); Blood Urea Nitrogen 21 mg/dL (8-23); Calcium 8.8 mg/dL (8.5-10.5); Carbon Dioxide 27 mmol/L (22-29); Chloride 103 mmol/L (98-107); Globulin 2.9 g/dL (1.3-4.6); Glomerular Filtration Rate 40.5 mL/min (90-130); Glucose 168 mg/dL (65-115); Magnesium 1.7 mg/dL (1.7-2.3); Osmolality Calculated 291 mOsm/kg (285-295); Phosphorus 2.6 mg/dL (2.5-4.5); Potassium 4.2 mmol/L (3.5-5.1); Sodium 137 mmol/L (136-145); Total Bilirubin 0.6 mg/dL (0.15-1.2); Total Protein 5.7 g/dL (6.6-8.7)
[2020-12-27 03:18] LABS: Procalcitonin 0.34 ng/mL (0-0.5)
[2020-12-27] MEDS: oxyCODONE 5 mg IR Tab/Cap PO ×2 (05:36→17:42)
[2020-12-27 06:35] LABS: Glucose Point of Care 138 mg/dL (70-110)
[2020-12-27] MEDS: amlodipine 10 mg Tablet PO (09:20)
[2020-12-27] MEDS: sennosides-docusate Tablet 2 TAB PO ×2 (09:20→17:42)
[2020-12-27] MEDS: levothyroxine 88 mcg Tablet PO (09:20)
[2020-12-27 10:42] LABS: Glucose Point of Care 332 mg/dL (70-110)
--- NOTE | 2020-12-27 10:43 | PC.SOCIAL ---
*IMM UPDATE* Gave pt IMM update. Gave her page 2 of IMM. Initialed, dated, timed and placed in chart.
--- NOTE | 2020-12-27 12:02 | PM.PN ---
Subjective Subjective: Interval history: Patient was examined this morning, she sitting up in chair, she had a closed reduction of her right shoulder by Dr. Ayala, she is agreeable to long-term placement, has no complaints presently Vitals/I&O/Wt Last Vital Signs Temp 97.7 F 12/27/20 11:09 Pulse 93 12/27/20 11:09 Resp 17 12/27/20 11:09 BP 102/52 12/27/20 11:09 Pulse Ox 98 12/27/20 11:09 12/26/20 12/27/20 12/27/20 22:59 06:59 14:59 Intake Total 120 / 220 200 / 420 360 / 360 Output Total 100 / 401 250 / 651 50 / 50 Balance 20 / -181 -50 / -231 310 / 310 Physical Exam Narrative: EXAM NARRATIVE: Right arm in sling Const: COMMON NORMALS: no acute distress and patient oriented x3 HENMT: COMMON NORMALS: normocephalic HEAD & SCALP: normocephalic Neck/C-Spine: COMMON NORMALS: no JVD Resp: COMMON NORMALS: normal respiratory effort, No retractions, No use of accessory muscles and clear to auscultation bilaterally AUSCULTATION: clear to auscultation bilaterally Cardio: COMMON NORMALS: no JVD, regular rate, regular rhythm, S1 normal heart sound present and S2 normal heart sound present RATE: regular rate RHYTHM: regular rhythm HEART SOUNDS: S1 normal heart sound present and S2 normal heart sound present GI: COMMON NORMALS: Normal to inspection, nondistended, normoactive bowel sounds present, Soft to palpation, non-tender, No hepatosplenomegaly present, no masses and no bruits PALPATION: Yes Soft to palpation and Yes No hepatosplenomegaly present Extremity: COMMON NORMALS: capillary refill normal, no clubbing, cyanosis or edema, no calf tenderness and no pedal edema Neuro: COMMON NORMALS: patient oriented x3 Psych: COMMON NORMALS: mental status grossly normal Urinary Catheter Management^: Handy Latex: Cath Placed During This Visit: yes, but has since been removed by the nurse Reason for Continuing Indwelling Catheter: Decision to DC Catheter Urinary Catheter Date of Insertion: 12/24/20 Urinary Catheter Time of Insertion: 04:30 Date Urinary Catheter Removed: 12/25/20 Time Urinary Catheter Discontinued: 06:15 Data : 12/27/20 01:55 12/27/20 01:55 A&P Assessment and plan (1) Hip fracture: Status: Deleted Qualifiers: Encounter type: initial encounter Fracture type: closed Laterality: right Qualified Code(s): S72.001A - Fracture of unspecified part of neck of right femur, initial encounter for closed fracture (2) Shoulder dislocation: Status: Acute Qualifiers: Encounter type: initial encounter Laterality: right Qualified Code(s): S43.004A - Unspecified dislocation of right shoulder joint, initial encounter Additional A&P Information Right femoral neck fracture Patient sustained a mechanical fall Status post right hip bipolar arthroplasty by Dr. Ayala postop day 3 Pain control and anticoagulation as per orthopedic team PT OT intermediate versus home health care Urinary tract infection has finished antibiotic therapy EKG shows junctional rhythm, currently repeat EP EKG shows normal sinus rhythm, QTC 452 ms, no chest pain complaints, telemetry monitoring, no chest pain complaints On aspirin 81 mg, atorvastatin 20 mg Severe mitral stenosis, does have some complaints of shortness of breath with exertion, no chest pain, no lightheadedness, no dizziness, no history of A. fib, will require surgical evaluation as outpatient Anterior dislocation right shoulder which was reduced by Dr. Jonhson, has redislocated right shoulder, status post closed reduction in the operating room by Dr. 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
--- NOTE | 2020-12-27 12:21 | P.PN_ITS ---
Subjective Subjective: Interval history: Pain controlled with meds. Patient having more problem with ambulation with hemiwalker Vitals/I&O/Wt Last Vital Signs Temp 97.7 F 12/27/20 11:09 Pulse 93 12/27/20 11:09 Resp 17 12/27/20 11:09 BP 102/52 12/27/20 11:09 Pulse Ox 98 12/27/20 11:09 12/26/20 12/27/20 12/27/20 22:59 06:59 14:59 Intake Total 120 / 220 200 / 420 360 / 360 Output Total 100 / 401 250 / 651 50 / 50 Balance 20 / -181 -50 / -231 310 / 310 Physical Exam Narrative: EXAM NARRATIVE: Right shoulder in normal aligment Right hip dressing clean and dr Urinary Catheter Management^: Handy Latex: Cath Placed During This Visit: yes, but has since been removed by the nurse Reason for Continuing Indwelling Catheter: Decision to DC Catheter Urinary Catheter Date of Insertion: 12/24/20 Urinary Catheter Time of Insertion: 04:30 Date Urinary Catheter Removed: 12/25/20 Time Urinary Catheter Discontinued: 06:15 Data : 12/27/20 01:55 12/27/20 01:55 A&P Assessment and plan (1) Postoperative state: Status: Acute (2) Displaced fracture of right femoral neck: Status: Resolved (3) Shoulder dislocation: Now with inability to use right arm for weight bearing lori need SNF placement Status: Acute Qualifiers: Encounter type: initial encounter Laterality: right Qualified Code(s): S43.004A - Unspecified dislocation of right shoulder joint, initial encounter Attestations Medical Necessity Statement*: OK to dc per ortho Coding Level of Care Code Acute 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
[2020-12-27] MEDS: enoxaparin 40 mg/0.4 mL Syringe SUBCUT (12:23)
[2020-12-27] MEDS: acetaminophen 500 mg Tablet 1000 MG PO ×2 (12:23→21:25)
[2020-12-27] MEDS: calcium acetate 667 mg Capsule 2001 MG PO (12:23)
[2020-12-27 16:10] LABS: Glucose Point of Care 154 mg/dL (70-110)
[2020-12-27 20:42] LABS: Glucose Point of Care 178 mg/dL (70-110)
[2020-12-27] MEDS: atorvastatin 40 mg Tablet 20 MG PO (21:25)
[2020-12-27] MEDS: aspirin 81 mg EC Tablet PO (21:25)
[2020-12-28] VITALS (8 sets, daily range): BP systolic 128–136; BP diastolic 78–82; PULSE 75–88; RESP 16–18; TEMP 36.5–36.7; O2SAT 96–99
[2020-12-28 02:21] LABS: Basophils # 0.1 10^3/uL (0.0-0.1); Basophils % 0.8 %; Eosinophils % 9.2 %; Hematocrit 38.8 % (37.0-47.0); Hemoglobin 11.7 g/dL (11.5-15.3); Lymphocytes # 2.3 10^3/uL (0.8-4.8); Lymphocytes % 21.9 %; Mean Corpuscular HGB Conc 30.2 g/dL (30.0-36.0); Mean Corpuscular Hemoglobin 30.2 pg (28.0-34.0); Mean Platelet Volume 12.4 fL (7.4-10.4); Monocytes # 0.9 10^3/uL (0.2-0.9); Monocytes % 8.8 %; Neutrophils # 6.16 10^3/uL (1.8-7.7); Neutrophils % 58.7 %; Nucleated Red Blood Cells % 0 %; Platelet Count 172 10^3/cmm (130-400); Red Blood Count 3.88 10^6/uL (4.1-5.3); Red Cell Distribution Width 12.5 % (12.1-15.1); White Blood Count 10.5 10^3/uL (4.0-10.0)
[2020-12-28 02:46] LABS: Alanine Aminotransferase < 5 U/L (0-33); Albumin Level 2.4 g/dL (3.5-5.2); Alkaline Phosphatase 91 IU/L (35-105); Aspartate Amino Transferase 17 U/L (0-32); Blood Urea Nitrogen 26 mg/dL (8-23); Carbon Dioxide 27 mmol/L (22-29); Chloride 100 mmol/L (98-107); Globulin 3.5 g/dL (1.3-4.6); Glomerular Filtration Rate 31.9 mL/min (90-130); Glucose 153 mg/dL (65-115); Magnesium 1.9 mg/dL (1.7-2.3); Osmolality Calculated 286 mOsm/kg (285-295); Sodium 134 mmol/L (136-145); Total Bilirubin 0.6 mg/dL (0.15-1.2); Total Protein 5.9 g/dL (6.6-8.7)
[2020-12-28 02:49] LABS: Anion Gap 11.3 (5-19); Potassium 4.3 mmol/L (3.5-5.1)
[2020-12-28] MEDS: acetaminophen 500 mg Tablet 1000 MG PO ×2 (03:05→11:18)
[2020-12-28 06:37] LABS: Glucose Point of Care 187 mg/dL (70-110)
--- NOTE | 2020-12-28 08:00 | P.PN_ITS ---
Subjective Subjective: Interval history: Mild pain right shoulder and hip Vitals/I&O/Wt Last Vital Signs Temp 97.9 F 12/28/20 07:50 Pulse 80 12/28/20 07:50 Resp 18 12/28/20 07:50 BP 134/82 12/28/20 07:50 Pulse Ox 99 12/28/20 07:50 12/27/20 12/28/20 12/28/20 22:59 06:59 14:59 Intake Total 240 / 740 Output Total 400 / 450 300 / 750 Balance -160 / 290 -300 / -10 Physical Exam Narrative: EXAM NARRATIVE: No palpable deformity shoulder Right hip dressing clean and dry Urinary Catheter Management^: Handy Latex: Cath Placed During This Visit: yes, but has since been removed by the nurse Reason for Continuing Indwelling Catheter: Decision to DC Catheter Urinary Catheter Date of Insertion: 12/24/20 Urinary Catheter Time of Insertion: 04:30 Date Urinary Catheter Removed: 12/25/20 Time Urinary Catheter Discontinued: 06:15 Data : 12/28/20 01:53 12/28/20 01:53 A&P Assessment and plan (1) Displaced fracture of right femoral neck: Status: Resolved (2) Shoulder dislocation: Status: Acute Qualifiers: Encounter type: initial encounter Laterality: right Qualified Code(s): S43.004A - Unspecified dislocation of right shoulder joint, initial encounter (3) Postoperative state: Awaiting SNF. Discharge plan in discharge orders Status: Acute Attestations Medical Necessity Statement*: OK for dc per ortho Coding Level of Care Code Acute Service Agent for [facility] Fwd Diagnoses Displaced fracture of right femoral neck S72.001A Shoulder dislocation S43.004A Encounter type: initial encounter Laterality: right Postoperative state Z98.890
[2020-12-28] MEDS: sennosides-docusate Tablet 2 TAB PO (08:02)
[2020-12-28] MEDS: amlodipine 10 mg Tablet PO (08:02)
[2020-12-28] MEDS: levothyroxine 88 mcg Tablet PO (08:02)
[2020-12-28] MEDS: oxyCODONE 5 mg IR Tab/Cap PO (08:03)
[2020-12-28 10:53] LABS: Glucose Point of Care 277 mg/dL (70-110)
[2020-12-28] MEDS: enoxaparin 40 mg/0.4 mL Syringe SUBCUT (11:17)
[2020-12-28] MEDS: calcium acetate 667 mg Capsule 2001 MG PO (11:18)
--- NOTE | 2020-12-28 11:52 | PM.DCS ---
Discharge Providers Date of Admission: 12/24/20 02:03 Date of Discharge: December 28, 2020 Attending Provider at Admission: Tegan Cleveland MD Attending Provider at Discharge: Robbni Bergman MD Primary Care Provider: Kerrie Hunter MD Diagnoses at Discharge Discharge Diagnosis (1) Displaced fracture of right femoral neck: Status: Resolved (2) Shoulder dislocation: Status: Acute Qualifiers: Encounter type: initial encounter Laterality: right Qualified Code(s): S43.004A - Unspecified dislocation of right shoulder joint, initial encounter (3) Postoperative state: Status: Acute Reason for Visit Reason for Visit: Fall/knee/leg and arm hurt Hospital Course Hospital Course This is a 70-year-old female with a past medical history of type 2 diabetes mellitus, hypertension, hyperlipidemia who presents to [facility] due to a mechanical fall Patient was admitted to [facility] for a right femoral neck fracture, status post right hip bipolar arthroplasty by Dr. Ayala, tolerated surgery well, discharged to [facility], aspirin for DVT prophylaxis, pain control with oxycodone, follow with Dr. Ayala as outpatient Patient also suffered an anterior dislocation of the right shoulder, which was reduced twice, second time in the operating room by Dr. Ayala, right arm is currently in a sling Patient was also found to have severe mitral stenosis, has some complaints of shortness of breath with exertion, no chest pain, no history of atrial fibrillation, she will require surgical evaluation as outpatient evaluation by cardiology, she is set to follow-up with cardiology in 1 week. Was found to have a UTI, treated with antibiotics as inpatient Physical Exam Narrative: EXAM NARRATIVE: Right arm in sling Const: COMMON NORMALS: no acute distress and patient oriented x3 HENMT: COMMON NORMALS: normocephalic HEAD & SCALP: normocephalic Neck/C-Spine: COMMON NORMALS: no JVD Resp: COMMON NORMALS: normal respiratory effort, No retractions, No use of accessory muscles and clear to auscultation bilaterally AUSCULTATION: clear to auscultation bilaterally Cardio: COMMON NORMALS: no JVD, regular rate, regular rhythm, S1 normal heart sound present and S2 normal heart sound present RATE: regular rate RHYTHM: regular rhythm HEART SOUNDS: S1 normal heart sound present and S2 normal heart sound present GI: COMMON NORMALS: Normal to inspection, nondistended, normoactive bowel sounds present, Soft to palpation, non-tender, No hepatosplenomegaly present, no masses and no bruits PALPATION: Yes Soft to palpation and Yes No hepatosplenomegaly present Extremity: COMMON NORMALS: capillary refill normal, no clubbing, cyanosis or edema, no calf tenderness and no pedal edema Neuro: COMMON NORMALS: patient oriented x3 Psych: COMMON NORMALS: mental status grossly normal Urinary Catheter Management^: Handy Latex: Cath Placed During This Visit: yes, but has since been removed by the nurse Reason for Continuing Indwelling Catheter: Decision to DC Catheter Urinary Catheter Date of Insertion: 12/24/20 Urinary Catheter Time of Insertion: 04:30 Date Urinary Catheter Removed: 12/25/20 Time Urinary Catheter Discontinued: 06:15 Discharge Data Data Completed and Pending: Completed Studies During Hospitalization Category Date Time Status XR chest 1V guido ble [id number] Routine Exams 12/25/20 07:00 Completed XR chest 1V guido ble [id number] Stat Exams 12/23/20 22:14 Completed XR elbow RT min 3 V* [id number] Stat Exams 12/23/20 20:32 Completed XR hip RT 2-3V wo /w pel* [id number] Stat Exams 12/23/20 22:14 Completed XR knee RT 1-2V 7 3560 Stat Exams 12/23/20 20:03 Completed XR pelvis 1-2V* 7 2170 Routine Exams 12/24/20 18:08 Completed XR shoulder RT 1V 45261 Routine Exams 12/26/20 Completed XR shoulder RT 1V [id number] Stat Exams 12/26/20 07:51 Completed XR shoulder RT mi n 2V* [id number] Routin e Exams 12/24/20 00:00 Completed XR shoulder RT mi n 2V* [id number] Stat Exams 12/23/20 22:14 Completed CV echo complete* [id number] Routine Ultrasound 12/25/20 05:00 Completed Pending at discharge Category Date Time Status Complete Blood Co unt w/Auto AM LABS Lab 12/29/20 04:00 Ordered Complete Blood Co unt w/Auto AM LABS Lab 12/30/20 04:00 Ordered Comprehensive Met abolic Panel AM LA BS Lab 12/29/20 04:00 Ordered Comprehensive Met abolic Panel AM LA BS Lab 12/30/20 04:00 Ordered Magnesium AM LABS Lab 12/29/20 04:00 Ordered Magnesium AM LABS Lab 12/30/20 04:00 Ordered Phosphorus AM LAB S Lab 12/29/20 04:00 Ordered Phosphorus AM LAB S Lab 12/30/20 04:00 Ordered Labs from last 24 hours 12/28/20 12/28/20 12/28/20 10:48 06:23 01:53 WBC RBC Hgb Hct MCV MCH MCHC RDW Plt Count MPV Neut % (Auto) Lymph % (Auto) Finney % (Auto) Eos % (Auto) Baso % (Auto) Neut # (Auto) Lymph # (Auto) Finney # (Auto) Eos # (Auto) Baso # (Auto) Nucleated RBC % (a uto) Nucleated RBCs # Sodium 134 L Potassium 4.3 Chloride 100 Carbon Dioxide 27 Anion Gap 11.3 BUN 26 H Creatinine 1.6 H GFR Calculation 31.9 L Glucose 153 H POC Glucose 277 H 187 H Calculated Osmolal ity 286 Calcium 9.0 Phosphorus 3.0 Magnesium 1.9 Total Bilirubin 0.6 AST 17 ALT < 5 Alkaline Phosphata se 91 Total Protein 5.9 L Albumin 2.4 L Globulin 3.5 12/28/20 12/27/20 12/27/20 01:53 20:33 16:05 WBC 10.5 H RBC 3.88 L Hgb 11.7 Hct 38.8 MCV 100.0 H D MCH 30.2 MCHC 30.2 RDW 12.5 Plt Count 172 MPV 12.4 H Neut % (Auto) 58.7 Lymph % (Auto) 21.9 Finney % (Auto) 8.8 Eos % (Auto) 9.2 Baso % (Auto) 0.8 Neut # (Auto) 6.16 Lymph # (Auto) 2.3 Finney # (Auto) 0.9 Eos # (Auto) 1.0 H Baso # (Auto) 0.1 Nucleated RBC % (a uto) 0 Nucleated RBCs # 0.0 Sodium Potassium Chloride Carbon Dioxide Anion Gap BUN Creatinine GFR Calculation Glucose POC Glucose 178 H 154 H Calculated Osmolal ity Calcium Phosphorus Magnesium Total Bilirubin AST ALT Alkaline Phosphata se Total Protein Albumin Globulin Vitals: Last Vital Signs Temp 98.1 F 12/28/20 11:38 Pulse 75 12/28/20 11:38 Resp 18 12/28/20 11:38 BP 136/79 12/28/20 11:38 Pulse Ox 98 01/29/21 11:38 Discharge Plan Discharge Patient Disposition: Home Condition: Stable Prescriptions: New oxycodone 5 mg Tablet 5 mg PO Q4H PRN (Reason: Moderate Pain) 7 Days Qty: 30 RF: 0 amlodipine 10 mg Tablet 10 mg PO DAILY 30 Days Qty: 30 RF: 0 sennosides-docusate sodium 8.6-50 mg Tablet 2 tab PO BID PRN (Reason: constipation) 30 Days Qty: 30 RF: 0 Continued lovastatin 10 mg Tablet 10 mg PO DAILY@2200 RF: 0 aspirin 81 mg Capsule,Delayed Release(Dr/Ec) 81 mg PO DAILY@2200 RF: 0 Trulicity 1.5 mg/0.5 mL Pen Injector 1.5 mg SUBCUT DIRECTED RF: 0 levothyroxine 88 mcg Tablet 88 mcg PO DAILY@08 RF: 0 calcium acetate(phosphat bind) 667 mg capsule 2,001 mg PO DAILY@12 RF: 0 Januvia 50 mg tablet 50 mg PO DAILY@12 RF: 0 Discharge Orders: Discharge Order (Routine); Ordered 12/28/20 Ordered By: Robbin Bergman Other Ambulatory Orders: DME: Kit (Order) Location: None Selected Ordered By: Rian Ayala Referrals: Sam Ivy M.D [Physician] - 1 week (severe mitral stenosis) Rian Ayala MD [Physician] - 1 month Discharge Diet: Cardiac Discharge Activity: Resume usual activity Activity Restrictions/Additional Instructions: Discontinue cierra on 01/07/2021 Occupational therapy: PROM AROM right shoulder Physical therapy: Gait train. WBAT RLE, NWB RUE Change right hip dressing as needed for drainage OK to shower as long as incision free of drainage. 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
--- NOTE | 2020-12-28 12:27 | PC.NURSE ---
Report called and given to Sangita MELGAR at [facility].
--- NOTE | 2020-12-28 13:49 | PC.NURSE ---
Transportation here to picker/puller patient, belonings taken with patient.
--- NOTE | 2020-12-31 13:56 | PC.SOCIAL ---
Spoke with Becky from [facility] and another patients medication in bottles was sent to [facility] with this patient. Also a telemmetry box was sent over with a patient. Notified charge nurse Emmie Flores and Nurse Separating Machine Operator Frida.
== END 2020-12-28 13:51 | disposition skilled nursing facility (03) | DRG 522 ==
LOC: ER 23:40 → MEDSURG 12-24 00:26
PROVIDERS: Nurse Practitioner Family; Orthopaedic Surgery; Admitting Provider Internal Medicine; Emergency Provider Emergency Medicine; PCP Family Medicine; Visit Provider Family Medicine
PROC: 0SRR0JZ Replacement of Right Hip Joint, Femoral Surface with Synthetic Substitute, Open Approach (ICD-10-PCS; CPT 27125; principal; 2020-12-24 12:45)
DX: S72.001A Fracture of unspecified part of neck of right femur, initial encounter for closed fracture (principal); N18.4 Chronic kidney disease, stage 4 (severe); N39.0 Urinary tract infection, site not specified; W18.30XA Fall on same level, unspecified, initial encounter; S43.004A Unspecified dislocation of right shoulder joint, initial encounter; M24.411 Recurrent dislocation, right shoulder; E11.22 Type 2 diabetes mellitus with diabetic chronic kidney disease; I12.9 Hypertensive chronic kidney disease with stage 1 through stage 4 chronic kidney disease, or unspecified chronic kidney disease; E11.65 Type 2 diabetes mellitus with hyperglycemia; E03.9 Hypothyroidism, unspecified; G47.00 Insomnia, unspecified; D86.3 Sarcoidosis of skin; M81.0 Age-related osteoporosis without current pathological fracture; Z99.81 Dependence on supplemental oxygen; I05.0 Rheumatic mitral stenosis; Z79.82 Long term (current) use of aspirin; Z79.4 Long term (current) use of insulin
CPT/HCPCS: 12345; 24505; 36415; 36416; 51702; 71045; 72170; 73020; 73030; 73080; 73502; 73560; 73562; 76000; 80053; 81001; 82550; 82962; 83735; 83880; 84100; 84145; 85025; 86140; 87426; 93005; 93306; 96372; 97110; 97116; 97162; 97167; 97530; 97535; 99283; C1776; J0690; J1100; J1170; J1200; J1580; J1650; J1815; J1940; J2060; J2270; J2405; J2704; J3010; J3490; J7030; J7799

== ENCOUNTER 2021-01-03 10:52 | Emergency (ER) | payer MEDICARE, MEDICAID, SELFPAY ==
[2021-01-03 10:53] VITALS: BP 130/89; PULSE 93; RESP 18; TEMP 36.5; O2SAT 96; BMI 38.7
--- NOTE | 2021-01-03 11:02 | XR_ITS ---
WS: [id number] RIGHT CLAVICLE 2 VIEWS HISTORY: distal fx COMPARISON: None available. Clavicle is intact. No widening of the AC joint or elevation. Anterior shoulder dislocation. Visualized upper lung field and adjacent soft tissues are normal. XR/[place] [id number] IMPRESSION: No clavicle fracture.
--- NOTE | 2021-01-03 11:02 | XR_ITS ---
WS: [id number] RIGHT SHOULDER: 3 VIEW(S) TECHNIQUE: Internal and external rotation with Y view. HISTORY: dislocation - 2 days ago COMPARISON: 12/26/2020 and 12/24/2020 Anterior shoulder dislocation. No fracture identified. Mild AC joint narrowing. Severely calcified lymph nodes at the RIGHT hilum. XR/XR shoulder RT min 2V* [id number] IMPRESSION: Anterior RIGHT shoulder dislocation.
--- NOTE | 2021-01-03 11:31 | ED_ITS ---
HPI - Extremity Problem General: Chief complaint: Extremity Injury, Upper Stated complaint: R ARM DISLOCATION Time Seen by Provider: 01/03/21 10:57 History of Present Illness: HPI Narrative: 70-year-old female presents emergency room from the halfway with shoulder pain. She had an x-ray at the halfway which showed a right anterior shoulder dislocation. She has had several of these in the last few weeks she has been able to be reduced with closed reduction. Radiologist also read the distal clavicle fracture on this most recent x-ray done at the halfway. Prior to that she had a right hip arthroplasty was done by Dr. Ayala here in the hospital. This occurred 2 days ago when she was being assisted by a staff member drying off in her shower she lifted her right arm and spontaneously dislocated. MD Complaint: joint pain Onset (ago): day(s) (2) Pain Consistency: constant Location: right and upper extremity Quality: sharp Radiation: distal Relieving factors: immobilization Exacerbating factors: range of motion Associated symptoms: Deny arthralgias, chest pain, fever(s), myalgias, rash or short of breath Review of Systems Const: Denies: fever(s) ENMT: Denies: throat pain, ear or mastoid pain, nasal discharge or nasal congestion Card: Denies: chest pain Resp: Denies: dyspnea, productive cough or non-productive cough GI: Denies: abdominal pain, nausea, vomiting, hematemesis, coffee ground emesis, diarrhea, constipation, bloating, hematochezia or melena : Denies: flank pain, difficulty voiding, dysuria, urinary frequency or urinary urgency Skin/Breast: Denies: rash PFSH ED PFSH: Medical History Chronic kidney disease Cutaneous sarcoidosis Degenerative joint disease Diabetes Hypertension Hypothyroidism Hypothyroidism Osteoporosis Sleep apnea Surgical History History of appendectomy History of eyelid surgery Hx of tubal ligation S/P trigger finger release Family History Other Diabetes Social History Smoking and tobacco status: never smoked Alcohol intake: never Lives independently: Yes Housing: House Physical Exam Const: COMMON NORMALS: no acute distress GENERAL APPEARANCE: cooperative and comfortable ORIENTATION/CONSCIOUSNESS: Yes awake, Yes oriented to person, Yes oriented to place and Yes oriented to time HENMT: COMMON NORMALS: normocephalic, atraumatic and hearing grossly normal bilaterally HEAD & SCALP: normocephalic and atraumatic Eye: COMMON NORMALS: Equal, round and reactive pupils present, EOMs intact bilaterally, conjunctivae normal and no scleral icterus CONJUNCTIVA: Yes conjunctivae normal PUPIL: Yes Equal, round and reactive pupils present Neck/C-Spine: COMMON NORMALS: full ROM, no lymphadenopathy, supple and no JVD Lymph: LYMPHATIC: no lymphadenopathy noted and no lymphedema noted Resp: COMMON NORMALS: normal respiratory effort, No retractions, No use of accessory muscles and clear to auscultation bilaterally AUSCULTATION: clear to auscultation bilaterally Cardio: COMMON NORMALS: no JVD, regular rate, regular rhythm and No murmurs present (Cardio) RATE: regular rate RHYTHM: regular rhythm GI: COMMON NORMALS: Soft to palpation and No hepatosplenomegaly present AUSCULTATION: Yes normoactive bowel sounds PALPATION: Yes Soft to palpation, No Tenderness to palpation present (GI), No Guarding due to palpation present (GI) and Yes No hepatosplenomegaly present Extremity: NARRATIVE EXTREMITY EXAM: Clinically on exam he has a right anterior shoulder dislocation confirmed by x-ray Neuro: SENSORIUM/ORIENTATION: Yes oriented to person, Yes oriented to place and Yes oriented to time Skin: COMMON NORMALS: no rashes or lesions noted GENERAL SKIN EXAM: no rashes or lesions noted Procedures Orthopedic Joint Reduction Joint #1: Time Out Performed: Yes Side: right Joint Reduction Location: shoulder Analgesia: procedural sedation Shoulder Technique Used (if applicable): traction/counter-traction Post-reduction neuro exam: intact Post-reduction vascular: intact Post Reduction X-Ray Obtained: Yes Post Reduction X-Ray Results: reduced Splint Applied: Yes Patient Tolerated Procedure: well Procedural Sedation Indication: fracture/dislocation reduction Preparation: cardiac nurse applied, pulse oximeter and supplemental O2 applied IV Etomidate dose (mg): 10 Patient Tolerated Procedure: well and no complications Complications: Respiratory Depression-Repositioning Required Interventions: oxygen applied and airway repositioned Course Vital Signs: Vital signs: Vital Signs Temperature 98.5 F 01/03/21 12:23 Pulse Rate 84 01/03/21 13:17 Respiratory Rate 18 01/03/21 13:17 Blood Pressure 151/72 01/03/21 13:17 Pulse Oximetry 98 01/03/21 13:17 MDM - Extremity (Nontraumatic) MDM Narrative: Medical decision making narrative: Patient has had multiple joint reductions in the last week. And joint successfully reduced at the bedside postreduction film confirms. Placed in a shoulder immobilizer discussed with Dr. Blackwell is on-call Ortho they asked that the patient remain in the shoulder immobilizer for 6 weeks. Discharge Plan Discharge Patient Disposition: Home Clinical Impression: Dislocation of shoulder region Condition: Stable Prescriptions: No Action lovastatin 10 mg Tablet 10 mg PO DAILY@2200 RF: 0 aspirin 81 mg Capsule,Delayed Release(Dr/Ec) 81 mg PO DAILY@1200 RF: 0 Trulicity 1.5 mg/0.5 mL Pen Injector 1.5 mg SUBCUT DIRECTED RF: 0 levothyroxine 88 mcg Tablet 88 mcg PO DAILY@08 RF: 0 calcium acetate(phosphat bind) 667 mg capsule 2,001 mg PO DAILY@12 RF: 0 Januvia 50 mg tablet 50 mg PO DAILY@12 RF: 0 sennosides-docusate sodium 8.6-50 mg Tablet 2 tab PO BID PRN (Reason: constipation) 30 Days Qty: 30 RF: 0 oxycodone 5 mg tablet 5 mg PO Q4H PRN (Reason: Pain) RF: 0 amlodipine 10 mg tablet 10 mg PO DAILY@08 RF: 0 Discharge Orders: Discharge ED (Routine); Ordered 01/03/21 Ordered By: Froy Arevalo Referrals: Kerrie Hunter MD [Primary Care Provider] - Activity Restrictions/Additional Instructions: Patient to wear shoulder immobilizer except for baths. Do not AB duct the right arm greater than 5 to 10 degrees for the next 6 weeks (do not move the upper arm away from the body more than 10 or 15 degrees in the next 6 weeks.) This should be enough to allow for removal and replacement of the shoulder immobilizer. Patient to follow-up with Dr. Szymanski per his instructions call his office for next follow-up appointment. Coding Level of Care Code ED Portfolio Manager for Isma Fwd Exam Comprehensive
[2021-01-03 11:47] VITALS: RESP 18
[2021-01-03] MEDS: fentaNYL 50 mcg/mL INJ 2mL IVP (11:47)
--- NOTE | 2021-01-03 12:17 | XR_ITS ---
WS: [id number] Right shoulder, AP view, 01/03/2021, 1216 hours. Clinical Data: shoulder placement Comparison: Right shoulder, as described today, 1102 hours. Findings: The shoulder dislocation has been reduced. There are multiple calcified lymph nodes overlying the mid dle mediastinum. XR/XR shoulder RT 1V [id number] Impression: Reduction of right shoulder dislocation.
[2021-01-03 12:20] VITALS: BP 154/87; PULSE 88; RESP 21; O2SAT 96
[2021-01-03 12:23] VITALS: BP 154/87; PULSE 82; RESP 18; TEMP 36.9; O2SAT 97
[2021-01-03 13:17] VITALS: BP 151/72; PULSE 84; RESP 18; O2SAT 98
== END 2021-01-03 13:20 | disposition home or self-care (01) ==
PROVIDERS: Emergency Provider Family Medicine; PCP Family Medicine
DX: S43.004A Unspecified dislocation of right shoulder joint, initial encounter (principal); Z79.82 Long term (current) use of aspirin; E11.9 Type 2 diabetes mellitus without complications; I10 Essential (primary) hypertension; X50.1XXA Overexertion from prolonged static or awkward postures, initial encounter
CPT/HCPCS: 12345; 23650; 73000; 73020; 73030; 96374; 99283; 99284; J3010; J3490

== ENCOUNTER 2021-01-06 12:37 | Outpatient (CLI) | payer MEDICARE, MEDICAID, SELFPAY ==
[2021-01-06 13:31] LABS: Add Urine Microscopic? YES; Bilirubin Urine Neg (Negative); Blood Urine 3+ (Negative); Glucose Urine UA Norm (Normal); Ketones Urine Negative (Negative); Leukocyte Esterase Urine 2+ (Negative); Nitrate Urine Negative (Negative); Protein Urine 1+ (Negative); Urine Appearance Cloudy (CLEAR); Urine Color Yellow (Yellow); Urobilinogen Urine Norm (Negative); pH Urine 5 (5-7)
[2021-01-06 13:32] LABS: Add Urine Culture? Yes; Bacteria Urine 2+ /hpf; WBC Urine TOO NUMEROUS TO CNT /hpf (0-5)
== END 2021-01-06 12:38 | disposition home or self-care (01) ==
LOC: LAB 12:53
PROVIDERS: PCP Family Medicine; Visit Provider Family Medicine
DX: M54.5 Low back pain (principal); R35.0 Frequency of micturition
CPT/HCPCS: 81001; 87077; 87086; 87186

== ENCOUNTER → 2021-02-11 13:41 | Outpatient (BNVA) | payer MEDICARE, MEDICAID, SELFPAY | PROVIDERS: PCP Family Medicine; Visit Provider Orthopaedic Surgery | DX: Z48.89 Encounter for other specified surgical aftercare (principal); Z96.641 Presence of right artificial hip joint | CPT/HCPCS: 73502 ==

== ENCOUNTER → 2021-04-12 13:41 | Outpatient (BNVA) | payer MEDICARE, MEDICAID, SELFPAY | PROVIDERS: PCP Family Medicine; Visit Provider Internal Medicine | DX: Z01.812 Encounter for preprocedural laboratory examination (principal); Z20.822 Contact with and (suspected) exposure to COVID-19 | CPT/HCPCS: 87635 ==

== ENCOUNTER 2021-04-17 11:11 | Day surgery (SDC) | payer MEDICARE, MEDICAID, SELFPAY ==
--- NOTE | 2021-04-17 12:03 | USCV_ITS ---
Rylie Ferreira Age: 70 Gender: F : 1950 Exam Date: 04/17/2021 12:27 Ordering Phys: Sam Ivy M.D ([email or web address]) Technologist: Exam [place] [facility] [place]: BP: 179 / 83 HR: Rhythm: Sinus Technical Quality: MEASUREMENTS (Male / Female) Normal Values DOPPLER MV Area PHT 4.5 cm squared Mitral E to A Ratio 0.8 MV E' Velocity 106.0 cm/s Medications Patient given IV sedation by anesthesia service, for details please refer to the anesthesia report. Complications None. Proc. Components RAIMUNDO was performed at multiple levels. FINDINGS Left Ventricle LV systolic function is normal Right Ventricle RV is normal in size and has a normal function Right Atrium Grossly normal Left Atrium Grossly normal LA Appendage No thrombus seen. IA Septum Normal Mitral Valve Mitral valve has normal structure. Subvalvular apparatus has calcification. Leaflet mobility is normal. There is mild mitral regurgitation noted. No significant mitral stenosis is seen Aortic Valve Aotic valve is calcified. Tricuspid Valve Normal Pulmonic Valve Grossly normal Pericardium Normal Aorta Has mild atheromatous plaque CONCLUSIONS LV function is normal Mitral valve is normal structurally. Subvalvular apparatus has calcification. No significant stenosis is seen. Has mild Mitral regurgitation Calcified aortic valve Sam Ivy MD (Electronically Signed) Final Date: 18 Apr 2021 12:54 S
[2021-04-17 12:06] VITALS: BP 179/83; PULSE 78; RESP 18; TEMP 36.7; O2SAT 98; BMI 37.3
--- NOTE | 2021-04-17 12:10 | P.HP_ITS ---
Same Day Surgery H&P Indication for Procedure/HPI DATE OF PROCEDURE: April 17, 2021 CHIEF COMPLAINT/INDICATIONFOR SURGICAL PROCEDURE: Mitral stenosis PREOP DIAGNOSIS: Mitral stenosis PLANNED PROCEDRUE: Operation Date: 04/17/21 12:00 Proposed Procedures p RAIMUNDO (Transesophageal Echocardiogram) 85832 i35.0(Not Applicable) - Sam Ivy M.D 70 year old woman with PMH of type 2 diabetes, hypertension, hyperlipidemia who had a recent admission to hospital with mechanical fall and right femoral neck fracture. She also had anterior dislocation of the right shoulder. Patient has been referred to cardiology as she had severe mitral stenosis on echo. Patient has been having shortness of breath and lower extremity edema. Plan is to assess mitral stenosis with transesophageal echocardiogram ROS CONSTITUTIONAL: No fever chills weight loss or gain or night sweats. [] HEENT: Normocephalic, atraumatic.[] RESPIRATORY: No cough, sputum, hemoptysis or wheezing.[] CARDIOVASCULAR: No shortness of breath, chest pain, PND, orthopnea, lower extremity edema, presyncope or syncope. [] GI: no nausea vomiting diarrhea. [] SCRUM COACH: No numbness, tingling, weakness or loss of function in any part of the body. [] MUSCULOSKELETAL: No knee or joint pain or rashes. [] Medications/Allergies* Home Medications Medication Instructions Recorded Confirmed Type Januvia 50 mg PO DAILY@12 12/24/20 02/11/21 History Trulicity 1.5 mg SUBCUT DIRECTED 12/24/20 02/11/21 History aspirin 81 mg PO DAILY@1200 12/24/20 02/11/21 History calcium acetate(phosphat bind) 2,001 mg PO DAILY@12 12/24/20 02/11/21 History levothyroxine 88 mcg PO DAILY@12/24/20 02/11/21 History lovastatin 10 mg PO DAILY@2200 12/24/20 02/11/21 History amlodipine 10 mg PO DAILY@01/03/21 02/11/21 History oxycodone 5 mg PO Q4H PRN 01/03/21 02/11/21 History Allergies/Adverse Reactions Allergy/AdvReac Type Severity Reaction Status Date / Time albuterol Allergy ALGY-Difficulty Verified 03/12/21 13:50 Breathing Pertinent History/Comorbid Conditions* Medical History (Updated 02/03/21 @ 20:43 by Sam Ivy M.D) Chronic kidney disease Cutaneous sarcoidosis Degenerative joint disease Diabetes Hypertension Hypothyroidism Hypothyroidism Osteoporosis Sleep apnea Surgical History (Updated 12/29/20 @ 00:01 by ) History of appendectomy History of eyelid surgery Hx of tubal ligation S/P trigger finger release Family History (Updated 12/24/20 @ 00:02 by Tegan Cleveland MD) Diabetes Social History Smoking and tobacco status: never smoked Alcohol intake: never Lives independently: Yes Housing: House Pertinent Exam Findings alert, oriented x 3, clear to auscultation bilaterally and regular rate & rhythm Recommendations Surgery/Procedure today (Transesophageal echocardiogram) Coding Level of Care Code Acute Key Punch Operator for Isma Echols
--- NOTE | 2021-04-17 12:14 | ANES.PREANE2 ---
Pre-Anesthetic Assessment Pre-Anesthetic Assessment: Height/Weight: Height 1.65 m Weight 101.605 kg Temp Pulse Resp BP Pulse Ox 98.0 F 78 18 179/83 98 04/17/21 12:06 04/17/21 12:06 04/17/21 12:06 04/17/21 12:06 04/17/21 12:06 Preop Diagnosis: Right shoulder dislocation Proposed Procedure: Operation Date: 04/17/21 12:00 Proposed Procedures p RAIMUNDO (Transesophageal Echocardiogram) 19383 i35.0(Not Applicable) - Pramod Hernandez Beta Ruth taken within 24 hours: N/A Was Clonidine taken within 24 hours: N/A Social: Social History: No alcohol and No tobacco Exam: Pre-Anes Outpt Exam: alert, oriented x 3, clear to auscultation bilaterally and regular rate & rhythm Airway: Submandibular: WNL Cervical ROM: WNL MP: 2 Dentition: False CV/HEM: CV/HEM: HTN Comments: Mitral stenosis? : : Chronic renal Insufficiency Metabolic: Metabolic: Morbid obesity and Thyroid Anesthetic Plan: ASA status: 3 Anesthesia: MAC Risk of > 500 ml blood loss (7ml/kg in children): No PFSH Anesthesia PFSH: Medical History Chronic kidney disease Cutaneous sarcoidosis Degenerative joint disease Diabetes Hypertension Hypothyroidism Hypothyroidism Osteoporosis Sleep apnea Surgical History History of appendectomy History of eyelid surgery Hx of tubal ligation S/P trigger finger release Family History Other Diabetes Social History Smoking and tobacco status: never smoked Alcohol intake: never Lives independently: Yes Housing: House Data Anesthesia Cardiac Studies: No Data to Display
[2021-04-17 12:36] VITALS: BP 129/64; PULSE 69; RESP 16; O2SAT 98
[2021-04-17 12:44] VITALS: BP 108/67; PULSE 70; RESP 16; O2SAT 99
[2021-04-17 13:03] VITALS: BP 148/80; PULSE 63; RESP 16; O2SAT 99
--- NOTE | 2021-04-17 13:28 | ANE.PACU2 ---
Inpatient post-anesthesia follow up: Airway intact: Yes Vital signs: Temperature 98.0 F Pulse Rate 63 Respiratory Rate 16 Blood Pressure 148/80 Pulse Oximetry 99 Oxygen Delivery Me thod Room Air Oxygen Flow Rate Fraction of Inspir ed Oxygen Hydration adequate: Yes Nausea and vomiting: No Pain level: 1 Mental status: Baseline
== END 2021-04-17 13:45 | disposition home or self-care (01) ==
PROVIDERS: Internal Medicine; PCP Family Medicine; Visit Provider Internal Medicine Cardiovascular Disease
PROC: (CPT 93312; principal; 2021-04-17 12:00)
DX: I35.0 Nonrheumatic aortic (valve) stenosis (principal); E11.9 Type 2 diabetes mellitus without complications; I10 Essential (primary) hypertension; E78.5 Hyperlipidemia, unspecified; E11.22 Type 2 diabetes mellitus with diabetic chronic kidney disease; I12.9 Hypertensive chronic kidney disease with stage 1 through stage 4 chronic kidney disease, or unspecified chronic kidney disease; N18.9 Chronic kidney disease, unspecified; Z79.84 Long term (current) use of oral hypoglycemic drugs; E03.9 Hypothyroidism, unspecified; M81.0 Age-related osteoporosis without current pathological fracture; G47.30 Sleep apnea, unspecified; M19.90 Unspecified osteoarthritis, unspecified site
CPT/HCPCS: 93312; 93320; 93325

== ENCOUNTER 2021-11-18 08:37 | Outpatient (CLI) | payer MEDICARE, MEDICAID, SELFPAY ==
--- NOTE | 2021-11-18 08:43 | MM_ITS ---
WS: [id number] Exam: [id number] Date/Time of Exam: 11/18/2021 8:58 AM Reason For Exam: SCREENING VIEWS: MLO and CC views both breasts. Comparison made with prior exam of 03/08/2014, 01/28/2019 and 08/24/2020. Findings: There was no sign of mass, architectural distortion or suspicious calcification in either breast. Fa tty MM/[id number] Impression: BI-RADS: 2-Benign FOLLOW-UP: 1 Year Follow-up This mammogram was also analyzed by the Computer Aided Detection System R2 Imag e Administrative Director.
--- NOTE | 2021-11-18 09:27 | XR_ITS ---
WS: [id number] Exam: XR DEXA axial skeleton* [id number] Date/Time of Exam: 11/18/2021 9:27 AM Reason For Exam: ASYMTOMATIC MENOPAUSAL STATE DEXA BONE DENSITOMETRY [employer]um[employer] The L1-L4 bone mineral density measures 1.137 g/cm2. This corresponds to a T score of -0.4 and Z scor e of 0.2. Left femoral neck bone mineral density measures 0.610 g/sq cm. This corresponds to T score of -3.1 an d Z score of -2.1. XR/XR DEXA axial skeleton* [id number] IMPRESSION: Bone mineral density lies in the osteoporotic range. Refer to detailed summary .
== END 2021-11-18 08:38 | disposition home or self-care (01) ==
LOC: RADSHAW 08:40
PROVIDERS: PCP Family Medicine; Visit Provider Family Medicine
DX: Z12.31 Encounter for screening mammogram for malignant neoplasm of breast (principal); Z78.0 Asymptomatic menopausal state
CPT/HCPCS: 77067; 77080

== ENCOUNTER 2022-11-26 11:48 | Outpatient (CLI) | payer MEDICARE, MEDICAID, SELFPAY ==
--- NOTE | 2022-11-26 11:58 | MM_ITS ---
WS: [id number] Bilateral screening 3D tomosynthesis digital mammogram, 11/26/2022 Clinical Data: SCREENING Comparison: 11/18/2021, 08/24/2020, 01/28/2019, 03/08/2014, 01/24/2013, 04/06/2012. Findings: The breast parenchymal pattern shows fat replacement. No spiculated masses or clustered calcification s are seen. There are no secondary signs of carcinoma. There are calcifications in the duarte small ve ssels. MM/[place] [id number] Impression: 1. Negative bilateral mammogram unchanged. 2. Recommend annual screening mammograms. BIRADS: 1-Negative FOLLOW UP: 1 Year Follow-up The CAD schedule checker was used.
== END 2022-11-26 11:49 | disposition home or self-care (01) ==
LOC: RAD 11:50
PROVIDERS: PCP Family Medicine; Visit Provider Family Medicine
DX: Z12.31 Encounter for screening mammogram for malignant neoplasm of breast (principal)
CPT/HCPCS: 77063; 77067

== ENCOUNTER → 2023-03-25 09:24 | Outpatient (BNVA) | payer MEDICARE, MEDICAID, SELFPAY | PROVIDERS: PCP Family Medicine; Visit Provider Family Medicine | DX: M54.9 Dorsalgia, unspecified (principal); G89.29 Other chronic pain; I89.0 Lymphedema, not elsewhere classified; E11.9 Type 2 diabetes mellitus without complications; I10 Essential (primary) hypertension; E03.9 Hypothyroidism, unspecified; M81.0 Age-related osteoporosis without current pathological fracture; M54.50 Low back pain, unspecified; M15.9 Polyosteoarthritis, unspecified; M25.561 Pain in right knee | CPT/HCPCS: 80053; 80061; 83036; 84439; 84443; 85025 ==

== ENCOUNTER → 2023-06-17 10:34 | Outpatient (BNVA) | payer MEDICARE, MEDICAID, SELFPAY | PROVIDERS: PCP Family Medicine; Visit Provider Anesthesiology Pain Medicine | DX: M54.9 Dorsalgia, unspecified (principal); G89.29 Other chronic pain; M25.561 Pain in right knee; M54.50 Low back pain, unspecified; I89.0 Lymphedema, not elsewhere classified; M81.0 Age-related osteoporosis without current pathological fracture; M47.816 Spondylosis without myelopathy or radiculopathy, lumbar region; M16.11 Unilateral primary osteoarthritis, right hip | CPT/HCPCS: 72114; 99204 ==

== ENCOUNTER → 2023-07-22 10:52 | Outpatient (BNVA) | payer MEDICARE, MEDICAID, SELFPAY | PROVIDERS: PCP Family Medicine; Visit Provider Anesthesiology Pain Medicine | DX: G89.29 Other chronic pain; M25.561 Pain in right knee; I89.0 Lymphedema, not elsewhere classified; M81.0 Age-related osteoporosis without current pathological fracture; M15.9 Polyosteoarthritis, unspecified; M47.816 Spondylosis without myelopathy or radiculopathy, lumbar region | CPT/HCPCS: 99215 ==

== ENCOUNTER → 2023-07-28 07:55 | Outpatient (BNVA) | payer MEDICARE, MEDICAID, SELFPAY | PROVIDERS: PCP Family Medicine; Visit Provider Orthopaedic Surgery | DX: M47.816 Spondylosis without myelopathy or radiculopathy, lumbar region (principal); M43.16 Spondylolisthesis, lumbar region; M48.54XA Collapsed vertebra, not elsewhere classified, thoracic region, initial encounter for fracture; M48.56XA Collapsed vertebra, not elsewhere classified, lumbar region, initial encounter for fracture; G89.29 Other chronic pain | CPT/HCPCS: 72110; 99204 ==

== ENCOUNTER → 2023-09-09 09:59 | Outpatient (BNVA) | payer MEDICARE, MEDICAID, SELFPAY | PROVIDERS: PCP Family Medicine; Visit Provider Family Medicine | DX: Z11.59 Encounter for screening for other viral diseases (principal); Z13.820 Encounter for screening for osteoporosis; Z78.0 Asymptomatic menopausal state; M81.0 Age-related osteoporosis without current pathological fracture; Z00.00 Encounter for general adult medical examination without abnormal findings; Z23 Encounter for immunization | CPT/HCPCS: 86705; 86706; 86803; 87340; 87902 ==

== ENCOUNTER → 2023-10-07 11:41 | Outpatient (BNVA) | payer MEDICARE, MEDICAID, SELFPAY | PROVIDERS: PCP Family Medicine; Visit Provider Family Medicine | DX: E03.9 Hypothyroidism, unspecified (principal); I89.0 Lymphedema, not elsewhere classified; I10 Essential (primary) hypertension; M81.0 Age-related osteoporosis without current pathological fracture; E11.9 Type 2 diabetes mellitus without complications; M54.50 Low back pain, unspecified; G89.29 Other chronic pain; M15.9 Polyosteoarthritis, unspecified | CPT/HCPCS: 80053; 84439; 84443 ==

== ENCOUNTER 2023-10-28 08:41 | Outpatient (CLI) | payer MEDICARE, MEDICAID, SELFPAY ==
--- NOTE | 2023-10-28 09:30 | MR_ITS ---
WS: [id number] MRI LUMBAR SPINE NONCONTRAST HISTORY: Chronic back pain down both legs. COMPARISON: None available. TECHNIQUE: Sagittal and axial multisequence imaging is submitted. Survey image does not include the entire spine as there is marked thoracic curvature and increased ky phosis. Mild increase in the lumbar lordosis. L4 anterolisthesis by 2 mm. Nonacute compression fracture L1 by 20% without retropulsion. Minimal disc desiccation. No marrow edema. Conus terminates normally at L1-2 disc level. L1-L2: Mild LEFT foraminal stenosis. L2-L3: Mild annular disc bulging with mild facet arthritis. Mild bilateral foraminal stenosis. L3-L4: Moderate annular disc bulging with marked ligamentum flavum and facet arthritis. There is flat tening and distortion of the thecal sac and the nerve roots. Encroachment upon the traversing L4 nerv e roots. Moderate central and bilateral subarticular recess and mild foraminal stenosis. L4-L5: Diffuse annular disc bulging encroaching upon the ventral thecal sac. Moderate to severe bilat eral ligamentum flavum hypertrophy and facet arthritis. Small amount of fluid in the facet joints. Mi ld central and bilateral subarticular recess stenosis. L5-S1: Mild annular disc bulging with a central disc protrusion. No stenosis. IMPRESSION: 1. Chronic L1 compression fracture, 20% without retropulsion. 2. L3-4: Moderate central and bilateral subarticular recess and mild foraminal stenosis. Encroachment upon the traversing L4 nerve roots. 3. L4-5: Mild central and bilateral subarticular recess stenosis. Mild encroachment upon the traversi ng L5 nerve roots. Moderate to severe ligamentum flavum hypertrophy and facet arthritis. 4. Mild LEFT foramen stenosis at L1-2 and mild bilateral foraminal stenosis at L2-3.
== END 2023-10-28 08:42 | disposition home or self-care (01) ==
LOC: RAD 08:42
PROVIDERS: PCP Family Medicine; Visit Provider Orthopaedic Surgery
DX: M48.56XA Collapsed vertebra, not elsewhere classified, lumbar region, initial encounter for fracture (principal); G89.29 Other chronic pain; M48.061 Spinal stenosis, lumbar region without neurogenic claudication; M79.605 Pain in left leg; M79.604 Pain in right leg; M47.816 Spondylosis without myelopathy or radiculopathy, lumbar region
CPT/HCPCS: 72148

== ENCOUNTER → 2023-12-01 09:06 | Outpatient (BNVA) | payer MEDICARE, MEDICAID, SELFPAY | PROVIDERS: PCP Family Medicine; Visit Provider Physician Assistant | DX: M43.16 Spondylolisthesis, lumbar region (principal); M47.816 Spondylosis without myelopathy or radiculopathy, lumbar region; M48.062 Spinal stenosis, lumbar region with neurogenic claudication | CPT/HCPCS: 72100; 99213 ==

== ENCOUNTER → 2024-01-13 11:16 | Outpatient (BNVA) | payer MEDICARE, MEDICAID, SELFPAY | PROVIDERS: PCP Family Medicine; Visit Provider Family Medicine | DX: E03.9 Hypothyroidism, unspecified (principal); L89.309 Pressure ulcer of unspecified buttock, unspecified stage; M43.16 Spondylolisthesis, lumbar region; I10 Essential (primary) hypertension; M81.0 Age-related osteoporosis without current pathological fracture; E11.9 Type 2 diabetes mellitus without complications; M15.9 Polyosteoarthritis, unspecified; I89.0 Lymphedema, not elsewhere classified | CPT/HCPCS: 84439; 84443 ==

== ENCOUNTER → 2024-05-20 11:29 | Outpatient (BNVA) | payer MEDICARE, MEDICAID, SELFPAY | PROVIDERS: PCP Family Medicine; Visit Provider Family Medicine | DX: E03.9 Hypothyroidism, unspecified (principal); M54.9 Dorsalgia, unspecified; G89.29 Other chronic pain; M19.90 Unspecified osteoarthritis, unspecified site; F41.9 Anxiety disorder, unspecified | CPT/HCPCS: 80053; 84439; 84443 ==

== ENCOUNTER 2024-09-08 09:31 | Emergency (ER) | payer MEDICARE, MEDICAID, SELFPAY ==
[2024-09-08 09:39] VITALS: BP 161/134; PULSE 78; RESP 20; TEMP 36.7; O2SAT 95; BMI 34.6
--- NOTE | 2024-09-08 09:42 | ED_ITS ---
HPI - Animal Bite General: Chief Complaint: Animal Bite Stated Complaint: big cut on head Time Seen by Provider: 09/08/24 09:37 History of Present Illness: 74-year-old female who presents to the e mergency room after being mauled by her cat at home. Evidently the cat wanted to get outside she had another cat they were interacting she tried to get them got 1 outside and then the second cat attacked her she has multiple scratch scratches on her scalp. They have actually bled quite a bit she denies any falls denies any other injuries she was not injured in the eye during this. She is states the cat usually live indoors. Was not an unprovoked attack. Cats have not had the rabies vaccinations. Her tetanus is up-to-date she had 1 within the last year. Associated symptoms: Deny chills or fever(s) Related Data Home Medications Medication Instructions Recorded Confirmed sitagliptin phosphate 50 mg tablet 50 mg PO DAILY 09/08/24 09/08/24 ([place]) Previous Rx's Medication Instructions Recorded furosemide 40 mg tablet 40 mg PO DAILY PRN lymphedema #60 01/28/24 tabs calcium acetate(phosphat bind) 667 2,001 mg (3 x 667 mg) PO DAILY@12 05/20/24 mg capsule #90 caps cyclobenzaprine 5 mg tablet 5 mg PO BID PRN muscle spasm #30 05/20/24 tabs hydrocodone 5 mg-acetaminophen 325 1 tab PO BID PRN pain 30 days #60 05/20/24 mg tablet tabs hydroxyzine HCl 10 mg tablet 10 mg PO QID PRN itching #90 tabs 05/20/24 levothyroxine 75 mcg tablet 75 mcg PO DAILY@08 #90 tabs 05/23/24 semaglutide 0.25 mg or 0.5 mg (2 0.5 mg (0.736 mL) SUBCUT .qweekly 07/25/24 mg/3 mL) subcutaneous pen injector 3 months #3 mL (Ozempic) lovastatin 10 mg tablet See Rx Instructions .Route 09/07/24 .COMPLEX #90 tabs amoxicillin 875 mg-potassium 1 tab PO BID #14 tabs 09/08/24 clavulanate 125 mg tablet mupirocin 2 % topical ointment 1 applic topical BID #22 grams 09/08/24 Allergies Allergy/AdvReac Type Severity Reaction Status Date / Time albuterol Allergy ALGY-Difficulty Verified 05/20/24 10:36 Breathing Review of Systems 2 Const: Denies: fever(s) or chills Card: Denies: chest pain Resp: Denies: dyspnea GI: Denies: abdominal pain : Denies: dysuria, urinary frequency or urinary urgency Musc: Denies: neck pain or back pain Skin/Breast: Reports: other (Scalp abrasions just to the right of the midline and on the left cheek and ); Denies: rash PFSH ED PFSH: Medical History History of fracture of wrist surgically repaired History of fracture of clavicle Degenerative joint disease Hypothyroidism Sleep apnea Cutaneous sarcoidosis Osteoporosis Chronic kidney disease Hypertension Diabetes Surgical History History of right hip replacement S/P trigger finger release History of appendectomy Hx of tubal ligation History of eyelid surgery Family History Daughter Cancer abdominal Family/Other Cancer Paternal aunt-breast Other CAD (coronary artery disease) Chronic kidney disease (CKD) Diabetes Hyperlipidemia Lung disease Denies family history of Clotting disorder Dementia Psychiatric illness Anesthesia complication Bleeding disorder Hypertension Stroke Social History Smoking and tobacco/nicotine status: never used tobacco/nicotine Alcohol intake: never Substance/Drug Use: never Lives independently: Yes Housing: House Marital status: / Number of children: 2 Current occupational status: disabled Physical Exam Const: GENERAL APPEARANCE: cooperative ORIENTATION/CONSCIOUSNESS: Yes awake, Yes oriented to person, Yes oriented to place and Yes oriented to time HENMT: COMMON NORMALS: normocephalic and hearing grossly normal bilaterally HEAD & SCALP: normocephalic Resp: COMMON NORMALS: normal respiratory effort, No retractions, No use of accessory muscles and clear to auscultation bilaterally AUSCULTATION: clear to auscultation bilaterally Cardio: COMMON NORMALS: regular rate, regular rhythm and No murmurs present (Cardio) RATE: regular rate RHYTHM: regular rhythm GI: COMMON NORMALS: Soft to palpation and No hepatosplenomegaly present AUSCULTATION: Yes normoactive bowel sounds PALPATION: Yes Soft to palpation, No Tenderness to palpation present (GI), No Guarding due to palpation present (GI) and Yes No hepatosplenomegaly present Extremity: COMMON NORMALS: normal to inspection, capillary refill normal, no clubbing, cyanosis or edema, no calf tenderness and no pedal edema Neuro: SENSORIUM/ORIENTATION: Yes oriented to person, Yes oriented to place and Yes oriented to time Course Vital Signs: Vital signs: Vital Signs Temperature 98.1 F 09/08/24 09:39 Pulse Rate 63 09/08/24 11:51 Respiratory Rate 16 09/08/24 11:51 Blood Pressure 182/77 09/08/24 11:51 Pulse Oximetry 100 09/08/24 11:51 Oxygen Delivery Me thod Room Air 09/08/24 10:57 MDM - Animal Bite Medical Decision Making No full-thickness lacerations. Nothing that we will need closure. Will start on Augmentin since it was a cat bite additionally apply topical mupirocin to the wounds twice daily. Tetanus is up-to-date. We discussed rabies vaccination patient states they still have a cat in their possession and they wish to observe the cat during this time and not to initiate rabies. If the cat shows any signs of illness should be brought to a vet for evaluation for rabies and should return for initiation of rabies vaccinations. Medical Records I reviewed the patient's medical records. Lab Data I reviewed the patient's lab results. No radiology studies performed this visit Discharge Plan Discharge Patient Disposition: Home Clinical Impression: Cat bite, Diabetes Condition: Stable Prescriptions: New amoxicillin-pot clavulanate 875-125 mg tablet 1 tab PO BID Qty: 14 0RF mupirocin 2 % ointment 1 applic topical BID Qty: 22 0RF No Action calcium acetate(phosphat bind) 667 mg capsule 2,001 mg PO DAILY@12 Qty: 90 1RF cyclobenzaprine 5 mg tablet 5 mg PO BID PRN (Reason: muscle spasm) Qty: 30 1RF hydroxyzine HCl 10 mg tablet 10 mg PO QID PRN (Reason: itching) Qty: 90 1RF hydrocodone-acetaminophen 5-325 mg tablet 1 tab PO BID PRN (Reason: pain) 30 Days Qty: 60 0RF furosemide 40 mg tablet 40 mg PO DAILY PRN (Reason: lymphedema) Qty: 60 1RF levothyroxine 75 mcg tablet 75 mcg PO DAILY@08 Qty: 90 1RF Ozempic 0.25 mg or 0.5 mg (2 mg/3 mL) pen injector 0.5 mg SUBCUT .qweekly 90 Days Qty: 3 2RF Rx Instructions: 0.5mg x 4 weeks then 1mg x 3 months lovastatin 10 mg tablet See Rx Instructions .ROUTE .COMPLEX Qty: 90 0RF Dose Instruction: TAKE 1 TABLET BY MOUTH ONCE DAILY AT 10PM Rx Instructions: TAKE 1 TABLET BY MOUTH ONCE DAILY AT 10PM Januvia 50 mg tablet 50 mg PO DAILY Discharge Orders: Discharge ED (Routine); Ordered 09/08/24 Ordered By: Froy Arevalo Referrals: David Rodriguez MD [Primary Care Provider] - Patient Instructions: Opioid Safety, Pain Management Activity Restrictions/Additional Instructions: Thank you for choosing [facility] for your healthcare needs today. It is very important that you follow up as instructed or that you return to the Emergency Department should you have concerns or if your condition changes or worsens in any way. You are seen today after being scratched by a cat. Recommend oral antibiotics 1 pill twice a day for 7 days also apply topical antibiotics to the areas you were scratched. If there is any swelling fever or drainage from the wounds you should be rechecked. None of the wounds required suturing. We had discussed rabies vaccination since the cat had not been vaccinated. You had opted instead to observe the cat for a time and report if there was any changes. If you noticed the cat demonstrating any signs of illness you should have it evaluated by medical technologist microbiology for rabies infection. Coding Level of Care Code ED Software Developer Consultant for Isma Echols
[2024-09-08 09:57] VITALS: PULSE 71; RESP 18; O2SAT 99
[2024-09-08 10:05] VITALS: BP 169/99
[2024-09-08 10:57] VITALS: BP 178/76; PULSE 62; RESP 16; O2SAT 97
[2024-09-08 11:51] VITALS: BP 182/77; PULSE 63; RESP 16; O2SAT 100
== END 2024-09-08 11:56 | disposition home or self-care (01) ==
PROVIDERS: Emergency Provider Family Medicine; PCP Family Medicine
DX: S00.01XA Abrasion of scalp, initial encounter (principal); W55.03XA Scratched by cat, initial encounter; Z79.85 Long-term (current) use of injectable non-insulin antidiabetic drugs; E11.22 Type 2 diabetes mellitus with diabetic chronic kidney disease; I12.9 Hypertensive chronic kidney disease with stage 1 through stage 4 chronic kidney disease, or unspecified chronic kidney disease; N18.9 Chronic kidney disease, unspecified
CPT/HCPCS: 99283

== ENCOUNTER → 2024-09-28 11:25 | Outpatient (BNVA) | payer MEDICARE, MEDICAID, SELFPAY | PROVIDERS: PCP Family Medicine; Visit Provider Family Medicine | DX: E11.9 Type 2 diabetes mellitus without complications (principal) | CPT/HCPCS: 80053; 83036 ==

== ENCOUNTER → 2025-01-10 08:48 | Outpatient (BNVA) | payer MEDICARE, MEDICAID, SELFPAY | PROVIDERS: PCP Family Medicine; Referring Provider Family Medicine; Visit Provider Anesthesiology Pain Medicine | DX: M48.062 Spinal stenosis, lumbar region with neurogenic claudication (principal) | CPT/HCPCS: 99214 ==

== ENCOUNTER → 2025-02-01 08:52 | Outpatient (BNVA) | payer MEDICARE, MEDICAID, SELFPAY | PROVIDERS: PCP Family Medicine; Visit Provider Anesthesiology Pain Medicine | DX: M79.18 Myalgia, other site (principal); M48.062 Spinal stenosis, lumbar region with neurogenic claudication | CPT/HCPCS: 20553; 99214; J1010; J3490 ==

== ENCOUNTER 2025-03-06 19:36 | Emergency (ER) | payer MEDICARE, MEDICAID, SELFPAY ==
[2025-03-06 19:40] VITALS: BP 106/66; PULSE 72; RESP 16; TEMP 36.7; O2SAT 98; BMI 33.0
[2025-03-06 20:07] LABS: Basophils # 0.1 10^3/uL (0.0-0.1); Basophils % 0.8 %; Eosinophils # 0.4 10^3/uL (0.0-0.8); Lymphocytes # 1.9 10^3/uL (0.8-4.8); Lymphocytes % 19.1 %; Mean Corpuscular HGB Conc 31.9 g/dL (30-55); Monocytes # 0.7 10^3/uL (0.2-0.9); Monocytes % 7.2 %; Neutrophils # 6.85 10^3/uL (1.8-7.7); Neutrophils % 68.4 %; Nucleated Red Blood Cells % 0 %; Platelet Count 261 10^3/cmm (157-399); Red Cell Distribution Width 12.4 % (12.1-15.1); White Blood Count 10.01 10^3/uL (3.29-11.43)
[2025-03-06 20:23] LABS: Alanine Aminotransferase 8 U/L (0-33); Alkaline Phosphatase 98 U/L (35-105); Anion Gap 18.1 (5-19); Aspartate Amino Transferase 15 U/L (0-32); Blood Urea Nitrogen 14 mg/dL (8-23); Calcium 9.1 mg/dL (8.5-10.5); Carbon Dioxide 23 mmol/L (22-29); Chloride 102 mmol/L (98-107); Creatinine Clr Calc Pharmacy 31.5019; Globulin 3.6 g/dL (1.3-4.6); Glucose 236 mg/dL (65-115); Lipase 33 U/L (13-60); Osmolality Calculated 294 mOsm/kg (285-295); Potassium 5.1 mmol/L (3.5-5.1); Sodium 138 mmol/L (136-145); Total Bilirubin 0.6 mg/dL (0.15-1.2); Total Protein 7.6 g/dL (6.6-8.7)
[2025-03-06 22:11] VITALS: BP 150/78; PULSE 67; O2SAT 97
--- NOTE | 2025-03-06 22:17 | CTR_ITS ---
PROCEDURE INFORMATION: Exam: CT Head Without Contrast Exam date and time: 03/06/2025 10:51 PM Age: 74 years old Clinical indication: Pain; Headache not specified; Additional info: Headache, dizzy x2 weeks TECHNIQUE: Imaging protocol: Computed tomography of the head without contrast. Radiation optimization: All CT scans at this facility use at least one of these dose optimization techniques: automated exposure control; mA and/or kV adjustment per patient size (includes targeted exams where dose is matched to clinical indication); or iterative reconstruction. COMPARISON: No relevant prior studies available. RADIATION DOSE METRICS: Total DLP (mGy-cm): 1037.08 FINDINGS: Brain: Moderate diffuse white matter disease likely reflecting chronic microvascular ischemic changes. Cerebral ventricles: No ventriculomegaly. Paranasal sinuses: Minimal paranasal sinus opacifications. Mastoid air cells: Visualized mastoid air cells are well aerated. Bones: Unremarkable. No acute fracture. Soft tissues: Unremarkable. CT/CT head wo con* [id number] IMPRESSION: Negative for intracranial hemorrhage or mass effect.
[2025-03-06] MEDS: sodium chloride 0.9% 1,000 ML 999 ML IV (22:23)
[2025-03-06] MEDS: ondansetron 2 mg/ML SDV 2 mL 4 MG IVP (22:23)
[2025-03-06] MEDS: diphenhydrAMINE 50 mg/mL SDV 1mL IVP (22:25)
[2025-03-06] MEDS: dexamethasone 10 mg/mL INJ IVP (22:28)
[2025-03-06 22:33] VITALS: RESP 18; O2SAT 97
[2025-03-06] MEDS: morphine 4 mg/mL SDV 1 mL IVP (22:33)
--- NOTE | 2025-03-06 22:59 | ECG_ITS ---
[employer] Test Date: 2025-03-06 Pat Name: Rylie Ferreira Department: Room: Gender: Female Program Review Director: : 1950 Requested By: Natanael Kathleen Order Number: [id number] Reading MD: Measurements Intervals [place] Rate: 65 P: 83 DE: 242 QRS: 4 QRSD: 98 T: 32 QT: 435 QTc: 453 Interpretive Statements SINUS RHYTHM WITH FIRST DEGREE AV BLOCK LOW QRS VOLTAGE IN PRECORDIAL LEADS [QRS DEFLECTION < 1.0 mV IN CHEST LEADS] [id number] [id number]
[2025-03-07] VITALS: BP 164/63; PULSE 70; RESP 16; O2SAT 91
--- NOTE | 2025-03-07 00:11 | ED_ITS ---
HPI - Headache 2 General: Chief Complaint: Headache Stated Complaint: headache, dizzy, aches Time Seen by Provider: 03/06/25 21:57 Source: patient Mode of arrival: ambulatory Limitations: no limitations History of Present Illness: This patient is a 74-year-old female who presents the emergency department complaining of headache and dizziness for the past 2 weeks. Initially presented to urgent care and was diagnosed with sinus infection treated with antibiotics as well as Flonase. Patient states that her symptoms have continued. Also notes diffuse soreness and states that she cannot walk around her house without getting dizzy. States that she feels off balance and that she is going to fall and injure herself. States that her headache is all over, does not report a history of migraines. No trauma to the head. She is not having any chest pain, shortness of breath, or other symptoms at this time. No nausea/vomiting, there is no temporal pattern reported with her headaches. Other than antibiotics and Flonase has not tried any medications at home. No urinary symptoms reported at this time. Vitals unremarkable. MD elicited complaint: headache Onset (ago): week(s) (2) Onset description: gradually Location: generalized Severity: moderate Associated symptoms: Deny chest pain, fever(s), lightheadedness, nausea, rash or vomiting Related Data Previous Rx's ?Medication ?Instructions ?Recorded cyclobenzaprine 5 mg tablet 5 mg PO BID PRN muscle spa sm #30 05/20/24 tabs hydrocodone 5 mg-acetaminophen 325 1 tab PO BID PRN pa in 30 days #60 05/20/24 mg tablet tabs hydroxyzine HCl 10 mg tablet 10 mg PO QID PRN itching #90 tabs 05/20/24 mupirocin 2 % topical ointment 1 applic topical BID #2 2 grams 09/08/24 potassium chloride 20 mEq 20 meq PO DAILY #90 tabs tablet,extended release calcium acetate(phosphat bind) 667 2,001 mg (3 x 667 m g) PO DAILY@12 12/01/24 mg capsule #90 caps levothyroxine 75 mcg tablet 75 mcg PO DAILY@08 #90 tab s 12/02/24 sitagliptin phosphate 50 mg tablet 50 mg PO DAILY #90 tabs 12/19/24 (Januvia) torsemide 20 mg tablet 20 mg PO QAM #90 tabs semaglutide 0.25 mg or 0.5 mg (2 0.5 mg (0.736 mL) SUB CUT .qweekly 01/12/25 mg/3 mL) subcutaneous pen injector 3 months #3 mL (Ozempic) amoxicillin 875 mg-potassium 1 tab PO BID 10 days #20 tabs 03/02/25 clavulanate 125 mg tablet fluticasone propionate 50 2 spray intranasal BID PRN a llergy 03/02/25 mcg/actuation nasal symptoms #16 grams spray,suspension (Flonase Allergy Relief) meclizine 50 mg tablet 50 mg PO BID PRN dizziness # 30 tabs 03/02/25 Allergies Allergy/AdvReac Type Severity Reaction Status Date / Time albuterol Allergy ALGY-Difficulty Verified 03/06/25 19:46 Breathing Review of Systems 2 General: Reports: 10 or more systems reviewed and unremarkable except in HPI and below Const: Denies: fever(s), chills or fatigue Eyes: Denies: change in vision ENMT: Denies: throat pain, ear or mastoid pain or nasal discharge Card: Denies: chest pain, palpitations, swelling of feet/ankles or lightheadedness Resp: Denies: dyspnea, productive cough or wheezing GI: Denies: abdominal pain, nausea, vomiting, diarrhea or constipation : Denies: flank pain, difficulty voiding, dysuria or urinary frequency Musc: Denies: neck pain, back pain or joint pain Skin/Breast: Denies: rash Neuro: Reports: headache(s), difficulty walking and dizziness; Denies: numbness in extremities or weakness in extremities PFSH ED 2 PFSH: Medical History History of fracture of wrist surgically repaired History of fracture of clavicle Degenerative joint disease Hypothyroidism Sleep apnea Cutaneous sarcoidosis Osteoporosis Chronic kidney disease Hypertension Diabetes Surgical History History of right hip replacement S/P trigger finger release History of appendectomy Hx of tubal ligation History of eyelid surgery Family History Daughter Cancer abdominal Family/Other Cancer Paternal aunt-breast Other CAD (coronary artery disease) Chronic kidney disease (CKD) Diabetes Hyperlipidemia Lung disease Denies family history of Clotting disorder Dementia Psychiatric illness Anesthesia complication Bleeding disorder Hypertension Stroke Social History Smoking and tobacco/nicotine status: never used tobacco/nicotine Alcohol intake: never Substance/Drug Use: never Lives independently: Yes Housing: House Marital status: / Number of children: 2 Current occupational status: disabled Physical Exam 2 Const: COMMON NORMALS: no acute distress, patient oriented x3 and no limitations GENERAL APPEARANCE: cooperative, comfortable and well developed ORIENTATION/CONSCIOUSNESS: Yes awake, Yes oriented to person, Yes oriented to place and Yes oriented to time HENMT: COMMON NORMALS: normocephalic, atraumatic and hearing grossly normal bilaterally HEAD & SCALP: normocephalic and atraumatic Eye: COMMON NORMALS: Equal, round and reactive pupils present, EOMs intact bilaterally and conjunctivae normal CONJUNCTIVA: Yes conjunctivae normal P UPIL: Yes Equal, round and reactive pupils present Neck/C-Spine: COMMON NORMALS: full ROM, supple and no JVD Resp: COMMON NORMALS: normal respiratory effort, No retractions, No use of accessory muscles and clear to auscultation bilaterally AUSCULTATION: clear to auscultation bilaterally Cardio: COMMON NORMALS: no JVD, regular rate, regular rhythm, No clicks present (Cardio), No murmurs present (Cardio) and No rub (Cardio) RATE: r egular rate RHYTHM: regular rhythm GI: COMMON NORMALS: Normal to inspection, nondistended, normoactive bowel sounds present, Soft to palpation and non-tender AUSCULTATION: Yes normoactive bowel sounds PALPATION: Yes Soft to palpation RECTAL EXAM: d eferred : COMMON NORMALS: Yes no CVA tenderness BLADDER/KIDNEY EXAM: Yes no CVA tenderness Back/Pelvis: COMMON NORMALS: no CVA tenderness, thoracic and lumbar spine normal to inspection, no thoracic nor lumbar tenderness and thoraco-lumbar ROM normal Extremity: COMMON NORMALS: normal to inspection, full ROM and capillary refill normal Neuro: COMMON NORMALS: patient oriented x3, CN's II-XII intact bilaterally, moves all extremities, no focal motor deficits and no sensory deficits noted SENSORIUM/ORIENTATION: Yes oriented to person, Yes oriented to place and Yes oriented to time Psych: COMMON NORMALS: mental status grossly normal and Normal thought process present THOUGHT PROCESS: Normal thought process present Skin: COMMON NORMALS: no rashes or lesions noted GENERAL SKIN EXAM: no rashes or lesions noted Course 2 Vital Signs: Vital signs: Vital Signs Temperature 98.1 F 03/06/25 19:40 Pulse Rate 73 03/07/25 02:02 Respiratory Rate 16 03/07/25 00:00 Blood Pressure 155/65 03/07/25 02:02 Pulse Oximetry 96 03/07/25 02:02 Oxygen Delivery Me thod Room Air 03/07/25 00:00 MDM - Headache Medical Decision Making Patient presented for headache and dizziness for 2 weeks, treated for sinus fracture recently but did not get improvement. States walk around house feels like she was going to fall, did note that she took Dramamine for vestibular dysfunction. Here her head CT was normal, neurologically intact on physical exam and has been stable. Vitals have been stable. All of her lab work was unremarkable including a negative urinalysis, does have a history of kidney disease so this explains her chronic elevation in creatinine otherwise unremarkable however. Was treated for an atypical migraine here but after medications and monitoring for a few hours states only minimal improvement. I do not suspect any emergent etiology in regards to this dizziness and headache, I think she may benefit from neurology referral for a more thorough vestibular workup and may even benefit from some vestibular rehab. Will give meclizine here and have her follow-up with regular doctor in a couple of days. Did encourage her to return with any new or worsening. She agrees to this plan and verbalized understanding to the return precautions. Lab Data 03/06/25 20:00 03/06/25 20:[address] 03/06/25 22:17 IMPRESSION: Negative for intracranial hemorrhage or mass effect. Laboratory Results WBC 10.01 10^3/uL (3.29-11.43) 03/06/25 20:00 RBC 5.00 10^6/uL (3.85-5.65) 03/06/25 20:00 Hgb 15.00 g/dL (11.27-16.99) 03/06/25 20:00 Hct 47.0 % (36-47) 03/06/25 20:00 MCV 94.0 fl (85-98) 03/06/25 20:00 MCH 30.0 pg (27-33) 03/06/25 20:00 MCHC 31.9 g/dL (30-55) 03/06/25 20:00 RDW 12.4 % (12.1-15.1) 03/06/25 20:00 Plt Count 261 10^3/cmm (157-399) 03/06/25 20:00 MPV 11.0 fL (7.4-10.4) H 03/06/25 20:00 Neut % (Auto) 68.4 % 03/06/25 20:00 Lymph % (Auto) 19.1 % 03/06/25 20:00 [place] % (Auto) 7.2 % 03/06/25 20:00 Eos % (Auto) 4.0 % 03/06/25 20: Baso % (Auto) 0.8 % 03/06/25 20:00 Neut # (Auto) 6.85 10^3/uL (1.8-7.7) 03/06/25 20:00 Lymph # (Auto) 1.9 10^3/uL (0.8-4.8) 03/06/25 20:00 [place] # (Auto) 0.7 10^3/uL (0.2-0.9) 03/06/25 20:00 Eos # (Auto) 0.4 10^3/uL (0.0-0.8) 03/06/25 20:00 Baso # (Auto) 0.1 10^3/uL (0.0-0.1) 03/06/25 20:00 Nucleated RBC % (auto) 0 % 03/06/25 20: Nucleated RBCs # 0.0 /100WBC 03/06/25 20:00 Sodium 138 mmol/L (136-145) 03/06/25 20:00 Potassium 5.1 mmol/L (3.5-5.1) 03/06/25 20:00 Chloride 102 mmol/L (98-107) 03/06/25 20:00 Carbon Dioxide 23 mmol/L (22-29) 03/06/25 20:00 Anion Gap 18.1 (5-19) 03/06/25 20:00 BUN 14 mg/dL (8-23) 03/06/25 20:00 Creatinine 1.8 mg/dL (0.5-0.9) H 03/06/25 20:00 GFR Calculation Not Reportable 03/06/25 20:00 Glucose 236 mg/dL (65-115) H 03/06/25 20:00 Calculated Osmolality 294 mOsm/kg (285-295) 03/06/25 20:00 Calcium 9.1 mg/dL (8.5-10.5) 03/06/25 20:00 Total Bilirubin 0.6 mg/dL (0.15-1.2) 03/06/25 20:00 AST 15 U/L (0-32) 03/06/25 20:00 ALT 8 U/L (0-33) 03/06/25 20:00 Alkaline Phosphatase 98 U/L (35-105) 03/06/25 20:00 Total Protein 7.6 g/dL (6.6-8.7) 03/06/25 20:00 Albumin 4.0 g/dL (3.5-5.2) 03/06/25 20: Globulin 3.6 g/dL (1.3-4.6) 03/06/25 20:00 Lipase 33 U/L (13-60) 03/06/25 20:00 Urine Color Yellow (Yellow) 03/07/25 00:22 Urine Appearance Clear (CLEAR) 03/07/25 00:22 Urine pH 5 (5-7) 03/07/25 00:22 Ur Specific [place] 1.015 (1.005-1.030) 03/07/25 00:22 Urine Protein Neg (Negative) 03/07/25 00:22 Urine Glucose (UA) Norm (Normal) 03/07/25 00:22 Urine Ketones Negative (Negative) 03/07/25 00: Urine Blood 2+ (Negative) H 03/07/25 00:22 Urine Nitrate Negative (Negative) 03/07/25 00:22 Urine Bilirubin Neg (Negative) 03/07/25 00: Urine Urobilinogen Neg mg/dL (Negative) 03/07/25 00:22 Ur Leukocyte Esterase Negative (Negative) 03/07/25 00:22 Urine RBC 0-2 /hpf (0-2) 03/07/25 00:22 Urine WBC 0-5 /hpf (0-5) 03/07/25 00:22 Ur Squamous Epith Cells 0-5 /hpf (0-5) 03/07/25 00:22 Amorphous Sediment Not Reportable 03/07/25 00:22 Urine Bacteria None seen /hpf (NONE) 03/07/25 00:22 Hyaline Casts 6.17 /lpf 03/07/25 00:22 All radiology interpretation(s) finalized by discharge Discharge Plan Discharge Patient Disposition: Home Clinical Impression: Dizziness Condition: Stable Prescriptions: No Action potassium chloride 20 mEq tablet extended release 20 meq PO DAILY Qty: 90 1RF fluticasone propionate [Flonase Allergy Relief] 50 mcg/actuation spray,suspension 2 spray intranasal BID PRN (Reason: allergy symptoms) Qty: 16 0RF Rx Instructions: administer into each nostril meclizine 50 mg tablet 50 mg PO BID PRN (Reason: dizziness) Qty: 30 0RF amoxicillin-pot clavulanate 875-125 mg tablet 1 tab PO BID 10 Days Qty: 20 0RF cyclobenzaprine 5 mg tablet 5 mg PO BID PRN (Reason: muscle spasm) Qty: 30 1RF hydroxyzine HCl 10 mg tablet 10 mg PO QID PRN (Reason: itching) Qty: 90 1RF hydrocodone-acetaminophen 5-325 mg tablet 1 tab PO BID PRN (Reason: pain) 30 Days Qty: 60 0RF torsemide 20 mg tablet 20 mg PO QAM Qty: 90 1RF calcium acetate(phosphat bind) 667 mg capsule 2,001 mg PO DAILY@12 Qty: 90 1RF levothyroxine 75 mcg tablet 75 mcg PO DAILY@08 Qty: 90 1RF Januvia 50 mg tablet 50 mg PO DAILY Qty: 90 0RF Ozempic 0.25 mg or 0.5 mg (2 mg/3 mL) pen injector 0.5 mg SUBCUT .qweekly 90 Days Qty: 3 2RF Rx Instructions: 0.5mg x 4 weeks then 1mg x 3 months mupirocin 2 % ointment 1 applic topical BID Qty: 22 0RF Discharge Orders: Discharge ED (Routine); Ordered 03/07/25 Ordered By: Natanael Reyes Referrals: David Rodriguez MD [Primary Care Provider] - Patient Instructions: Dizziness (ED) Activity Restrictions/Additional Instructions: Follow-up with regular doctor as we discussed. Care with ambulation and changing positions. Drink plenty of water, return with any new or worsening. Print Language: Paraguayan Coding Level of Care Code ED Draw Machine Operator for Isma Echols
[2025-03-07 00:42] LABS: Bacteria Urine None Seen /hpf; Hyaline Casts Urine 6.17 /lpf; RBC Urine 0-2 /hpf (0-2); Squamous Epithelial Cell Urine 0-5 /hpf (0-5); WBC Urine 0-5 /hpf (0-5)
[2025-03-07 00:44] LABS: Add Urine Microscopic? YES; Bilirubin Urine Neg (Negative); Blood Urine 2+ (Negative); Glucose Urine UA Norm (Normal); Ketones Urine Negative (Negative); Leukocyte Esterase Urine Negative (Negative); Nitrate Urine Negative (Negative); Protein Urine Neg (Negative); Specific Gravity, Urine 1.015 (1.005-1.030); Urine Appearance Clear (CLEAR); Urine Color Yellow (Yellow); Urobilinogen Urine Neg (Negative); pH Urine 5 (5-7)
[2025-03-07] MEDS: meclizine 25 mg tablet 50 MG PO ×2 (01:50)
[2025-03-07 02:02] VITALS: BP 155/65; PULSE 73; O2SAT 96
== END 2025-03-07 02:04 | disposition home or self-care (01) ==
PROVIDERS: Emergency Medicine; Emergency Provider Physician Assistant; PCP Family Medicine
DX: R42 Dizziness and giddiness (principal); E11.22 Type 2 diabetes mellitus with diabetic chronic kidney disease; I12.9 Hypertensive chronic kidney disease with stage 1 through stage 4 chronic kidney disease, or unspecified chronic kidney disease; N18.9 Chronic kidney disease, unspecified
CPT/HCPCS: 36415; 70450; 80053; 81001; 83690; 85025; 93005; 96361; 96374; 96375; 99285; J1100; J1200; J2270; J2405; J7030; J8597

== ENCOUNTER 2025-03-16 09:57 | Outpatient (CLI) | payer MEDICARE, MEDICAID, SELFPAY ==
--- NOTE | 2025-03-16 10:15 | MR_ITS ---
WS: [id number] MRI HEAD WITHOUT CONTRAST TECHNIQUE: Sagittal T1, T2 axial, T2 axial FLAIR, axial and coronal T1 images, axial susceptibility weighted imaging, axial diffusion weighted images, and coronal T2 images were obtained. CLINICAL INFORMATION: dizziness, vestibular abnormality COMPARISON: CT 03/06/2025 FINDINGS: No evidence of restricted diffusion to suggest acute ischemia. No hemosiderin on the susceptibility images. Moderate small vessel changes. Moderate parenchymal volume loss. Small vessel changes in the marcela. Normal posterior fossa. Normal vascular flow voids at the skull base. No extra-axial fluid collections. No evidence of mass or mass effect. Paranasal sinuses and mastoid air cells are well aerated. Normal optic chiasm and pituitary infundibulum. Mild symmetric atrophy temporal lobes hippocampal formations. No other suspicious findings. MR/MR head wo con* [id number] IMPRESSION: 1. No evidence of restricted diffusion to suggest acute ischemia. 2. Moderate small vessel changes with moderate parenchymal volume loss. 3. Small vessel changes in the marcela. 4. No hemosiderin susceptibility-weighted images. 5. Small chronic infarct RIGHT frontal lobe laterally near the vertex. 6. No other acute findings.
== END 2025-03-16 09:58 | disposition home or self-care (01) ==
PROVIDERS: PCP Family Medicine; Visit Provider Family Medicine
DX: R42 Dizziness and giddiness (principal); G31.89 Other specified degenerative diseases of nervous system
CPT/HCPCS: 70551

== ENCOUNTER → 2025-04-07 11:31 | Outpatient (BNVA) | payer MEDICARE, MEDICAID, SELFPAY | PROVIDERS: PCP Family Medicine; Referring Provider Family Medicine; Visit Provider Specialist | DX: I63.419 Cerebral infarction due to embolism of unspecified middle cerebral artery (principal); G37.9 Demyelinating disease of central nervous system, unspecified; G43.711 Chronic migraine without aura, intractable, with status migrainosus | CPT/HCPCS: 99205 ==

== ENCOUNTER 2025-04-14 09:19 | Observation (INO) | payer MEDICARE, MEDICAID, SELFPAY ==
[2025-04-14] VITALS (11 sets, daily range): BP systolic 86–196; BP diastolic 50–95; PULSE 56–105; RESP 15–17; TEMP 36.4–36.8; O2SAT 90–97; BMI 33.0
--- NOTE | 2025-04-14 09:20 | ECG_ITS ---
[employer] Test Date: 2025-04-14 Pat Name: Rylie Ferreira Department: Room: Gender: Female Compressor Battery Pellets: : 1950 Requested By: Froy Zuniga Order Number: [id number] Tamie MD: Dagoberto Vargas M.D. Measurements Intervals [place] Rate: 67 P: 90 [place]: 204 QRS: -12 QRSD: 141 T: -5 QT: 467 QTc: 493 Interpretive Statements SINUS RHYTHM RIGHT BUNDLE BRANCH BLOCK Compared to ECG 03/06/2025 22:59:14 Right bundle-branch block now present First degree AV block no longer present Electronically Signed On 04-15-2025 12:01:29 CDT by Dagoberto Vargas M.D. [id number] [id number]
[2025-04-14 09:32] LABS: Basophils # 0.1 10^3/uL (0.0-0.1); Basophils % 0.8 %; Eosinophils # 0.3 10^3/uL (0.0-0.8); Eosinophils % 2.6 %; Hematocrit 45.9 % (36-47); Lymphocytes # 2.9 10^3/uL (0.8-4.8); Lymphocytes % 24.9 %; Mean Corpuscular HGB Conc 32.2 g/dL (30-55); Mean Corpuscular Hemoglobin 30.4 pg (27-33); Mean Corpuscular Volume 94.3 fl (85-98); Mean Platelet Volume 10.8 fL (7.4-10.4); Monocytes # 0.8 10^3/uL (0.2-0.9); Monocytes % 6.8 %; Neutrophils # 7.65 10^3/uL (1.8-7.7); Neutrophils % 64.6 %; Nucleated Red Blood Cells % 0 %; Platelet Count 254 10^3/cmm (157-399); Red Blood Count 4.87 10^6/uL (3.85-5.65); Red Cell Distribution Width 12.4 % (12.1-15.1); White Blood Count 11.83 10^3/uL (3.29-11.43)
[2025-04-14 10:41] LABS: Alanine Aminotransferase < 5 U/L (0-33); Albumin Level 3.4 g/dL (3.5-5.2); Alkaline Phosphatase 76 U/L (35-105); Anion Gap 20.6 (5-19); Aspartate Amino Transferase 10 U/L (0-32); Blood Urea Nitrogen 21 mg/dL (8-23); Calcium 8.8 mg/dL (8.5-10.5); Carbon Dioxide 22 mmol/L (22-29); Chloride 102 mmol/L (98-107); Creatinine Clr Calc Pharmacy 37.8023; Globulin 3.1 g/dL (1.3-4.6); Glucose 130 mg/dL (65-115); Osmolality Calculated 295 mOsm/kg (285-295); Potassium 4.6 mmol/L (3.5-5.1); Sodium 140 mmol/L (136-145); Total Bilirubin 0.8 mg/dL (0.15-1.2); Total Protein 6.5 g/dL (6.6-8.7)
[2025-04-14] MEDS: sodium chloride 0.9% 1,000 ML 999 ML IV (10:41)
--- NOTE | 2025-04-14 11:25 | ED_ITS ---
HPI - Dizziness 2 General: Chief Complaint: Dizziness Stated Complaint: DIZZY Time Seen by Provider: 04/14/25 09:20 History of Present Illness: HPI Narrative: 74-year-old female presents emergency ro om complaining of lightheadedness dizziness particular when she stands up. She denies any chest pain. She does have a bit of a headache. no weakness. No difficulty with speech. She has difficulty with balance and gait when she stands because the dizziness induces when she is lying down she has no symptoms. She is Associated symptoms: Reports headache(s); Denies chest pain or chills Related Data Previous Rx's ?Medication ?Instructions ?Recorded calcium acetate(phosphat bind) 667 2,001 mg (3 x 667 m g) PO DAILY@12 12/01/24 mg capsule #90 caps torsemide 20 mg tablet 20 mg PO QAM #90 tabs fluticasone propionate 50 2 spray intranasal BID PRN a llergy 03/02/25 mcg/actuation nasal symptoms #16 grams spray,suspension (Flonase Allergy Relief) meclizine 50 mg tablet 50 mg PO BID PRN dizziness # 30 tabs 03/02/25 sitagliptin phosphate 50 mg tablet 50 mg PO DAILY #90 tabs 03/20/25 (Januvia) potassium chloride 20 mEq 20 meq PO DAILY #90 tabs tablet,extended release cyclobenzaprine 5 mg tablet 5 mg PO BID PRN muscle spa sm #30 04/05/25 tabs levothyroxine 75 mcg tablet 75 mcg PO DAILY@08 #90 tab s 04/05/25 sumatriptan succinate 100 mg tablet See Rx Instruction s PO .COMPLEX 04/05/25 #10 tabs amitriptyline 25 mg tablet 25 mg PO DAILY #30 tabs semaglutide 1 mg/dose (4 mg/3 mL) See Rx Instructions .Route 04/13/25 subcutaneous pen injector (Ozempic) .COMPLEX #3 mL Allergies Allergy/AdvReac Type Severity Reaction Status Date / Time albuterol Allergy ALGY-Difficulty Verified 04/07/25 12:14 Breathing Review of Systems 2 Const: Denies: fever(s) or chills Card: Denies: chest pain Resp: Denies: dyspnea GI: Denies: abdominal pain : Denies: dysuria, urinary frequency or urinary urgency Musc: Denies: neck pain or back pain Skin/Breast: Denies: rash Neuro: Reports: headache(s) PFSH ED 2 PFSH: Medical History History of fracture of wrist surgically repaired History of fracture of clavicle Degenerative joint disease Hypothyroidism Sleep apnea Cutaneous sarcoidosis Osteoporosis Chronic kidney disease Hypertension Diabetes Surgical History History of right hip replacement S/P trigger finger release History of appendectomy Hx of tubal ligation History of eyelid surgery Family History Daughter Cancer abdominal Family/Other Cancer Paternal aunt-breast Other CAD (coronary artery disease) Chronic kidney disease (CKD) Diabetes Hyperlipidemia Lung disease Denies family history of Clotting disorder Dementia Psychiatric illness Anesthesia complication Bleeding disorder Hypertension Stroke Social History Smoking and tobacco/nicotine status: never used tobacco/nicotine Alcohol intake: never Substance/Drug Use: never Lives independently: Yes Housing: House Marital status: / Number of children: 2 Current occupational status: disabled Physical Exam 2 Const: COMMON NORMALS: no acute distress GENERAL APPEARANCE: cooperative and comfortable ORIENTATION/CONSCIOUSNESS: Yes awake, Yes oriented to person, Yes oriented to place and Yes oriented to time HENMT: COMMON NORMALS: normocephalic, atraumatic and hearing grossly normal bilaterally HEAD & SCALP: normocephalic and atraumatic Resp: COMMON NORMALS: normal respiratory effort, No retractions, No use of accessory muscles and clear to auscultation bilaterally AUSCULTATION: clear to auscultation bilaterally Cardio: COMMON NORMALS: regular rate, regular rhythm and No murmurs present (Cardio) RATE: regular rate RHYTHM: regular rhythm GI: COMMON NORMALS: Soft to palpation and No hepatosplenomegaly present A USCULTATION: Yes normoactive bowel sounds PALPATION: Yes Soft to palpation, No Tenderness to palpation present (GI), No Guarding due to palpation present (GI) and Yes No hepatosplenomegaly present Extremity: COMMON NORMALS: normal to inspection, capillary refill normal, no clubbing, cyanosis or edema, no calf tenderness and no pedal edema Neuro: SENSORIUM/ORIENTATION: Yes oriented to person, Yes oriented to place and Yes oriented to time Skin: COMMON NORMALS: no rashes or lesions noted GENERAL SKIN EXAM: no rashes or lesions noted Course 2 Vital Signs: Vital signs: Vital Signs Temperature 98.3 F 04/14/25 09:19 Pulse Rate 66 04/14/25 12:30 Respiratory Rate 16 04/14/25 09:19 Blood Pressure 185/85 04/14/25 12:30 Pulse Oximetry 96 04/14/25 12:30 Oxygen Delivery Me thod Room Air 04/14/25 12:30 MDM - Dizziness Medical Decision Making Despite liter of fluid patient continues to have significant orthostasis and is symptomatic. Placed patient on observation discussed with hospitalist orders written Medical Records I reviewed the patient's medical records. Lab Data I reviewed the patient's lab results. 04/14/25 09:05 04/14/25 10:09 Laboratory Results WBC 11.83 10^3/uL (3.29-11.43) H 04/14/25 09:05 RBC 4.87 10^6/uL (3.85-5.65) 04/14/25 09:05 Hgb 14.80 g/dL (11.27-16.99) 04/14/25 09:05 Hct 45.9 % (36-47) 04/14/25 09:05 MCV 94.3 fl (85-98) 04/14/25 09:05 MCH 30.4 pg (27-33) 04/14/25 09:05 MCHC 32.2 g/dL (30-55) 04/14/25 09:05 RDW 12.4 % (12.1-15.1) 04/14/25 09:05 Plt Count 254 10^3/cmm (157-399) 04/14/25 09:05 MPV 10.8 fL (7.4-10.4) H 04/14/25 09:05 Neut % (Auto) 64.6 % 04/14/25 09:05 Lymph % (Auto) 24.9 % 04/14/25 09:05 Calloway % (Auto) 6.8 % 04/14/25 09:05 Eos % (Auto) 2.6 % 04/14/25 09:05 Baso % (Auto) 0.8 % 04/14/25 09:05 Neut # (Auto) 7.65 10^3/uL (1.8-7.7) 04/14/25 09:05 Lymph # (Auto) 2.9 10^3/uL (0.8-4.8) 04/14/25 09:05 Calloway # (Auto) 0.8 10^3/uL (0.2-0.9) 04/14/25 09:05 Eos # (Auto) 0.3 10^3/uL (0.0-0.8) 04/14/25 09:05 Baso # (Auto) 0.1 10^3/uL (0.0-0.1) 04/14/25 09:05 Nucleated RBC % (auto) 0 % 04/14/25 09:05 Nucleated RBCs # 0.0 /100WBC 04/14/25 09:05 Sodium 140 mmol/L (136-145) 04/14/25 10:09 Potassium 4.6 mmol/L (3.5-5.1) 04/14/25 10:09 Chloride 102 mmol/L (98-107) 04/14/25 10:09 Carbon Dioxide 22 mmol/L (22-29) 04/14/25 10:09 Anion Gap 20.6 (5-19) H 04/14/25 10:09 BUN 21 mg/dL (8-23) 04/14/25 10:09 Creatinine 1.5 mg/dL (0.5-0.9) H 04/14/25 10:09 GFR Calculation Not Reportable 04/14/25 10:09 Glucose 130 mg/dL (65-115) H 04/14/25 10:09 Calculated Osmolality 295 mOsm/kg (285-295) 04/14/25 10:09 Calcium 8.8 mg/dL (8.5-10.5) 04/14/25 10:09 Total Bilirubin 0.8 mg/dL (0.15-1.2) 04/14/25 10:09 AST 10 U/L (0-32) 04/14/25 10:09 ALT < 5 U/L (0-33) 04/14/25 10:09 Alkaline Phosphatase 76 U/L (35-105) 04/14/25 10:09 Total Protein 6.5 g/dL (6.6-8.7) L 04/14/25 10:09 Albumin 3.4 g/dL (3.5-5.2) L 04/14/25 10:09 Globulin 3.1 g/dL (1.3-4.6) 04/14/25 10:09 All radiology interpretation(s) finalized by discharge Discharge Plan Discharge Patient Disposition: Placed in Observation Clinical Impression: Orthostatic hypotension, Diabetes, Headache Coding Level of Care Code ED Director [employer] for Isma Echols NIH stroke score NIHSS Level Of Consciousness - 1a: 0 Level Of Consciousness Questions - 1b: Both Correct Level Of Consciousness Commands - 1c: Both Correct Best Gaze - 2: Normal Visual Dorantes - 3: No Visual Loss Facial Palsy - 4: Normal Motor Arm Right - 5: No Drift Motor Arm Left - 5: No Drift Motor Leg Right - 6: No Drift Motor Leg Left - 6: No Drift Limb Ataxia - 7: Absent Sensory - 8: Normal Best Language - 9: No Aphasia Dysarthia - 10: Normal Extinction And Inattention - 11: 0 Score Total Score: 0
--- NOTE | 2025-04-14 12:29 | CT_ITS ---
WS: [id number] CT HEAD NONCONTRAST HISTORY: headache, orthostasis TECHNIQUE: Contiguous axial imaging performed through the brain. Bone and soft tissue windows. Sagittal and coronal reformats reviewed. All CT scans at [facility] use at least one of these dose optimization techniques: automated exposure control; mA and/or kV adjustment per patient size (includes targeted exams where dose is matched to clinical indication); or iterative reconstruction. DLP: 1036.96 mGy.cm COMPARISON: 03/06/2025 No acute intracranial hemorrhage, midline shift or mass effect. Mild atrophy with moderate diffuse small vessel disease. No large infarct. Small lacunar infarct LEFT external capsule. Ventricles: Normal size with no hydrocephalus. No inferior displacement of the cerebellar tonsils. Paranasal sinuses: Fluid in the posterior RIGHT ethmoid air cells. Mastoid air cells: Well pneumatized. Calvarium and scalp: Skull is intact with no soft tissue edema or swelling. CT/CT head wo con* [id number] IMPRESSION: 1. No acute intracranial hemorrhage or edema. 2. Mild atrophy and moderate small vessel disease. Similar to the prior study of 03/06/2025.
--- NOTE | 2025-04-14 15:00 | PM.HP ---
Providers/Chief Complaint Primary Care Provider: David Rodriguez MD Chief Complaint: DIZZY History of Present Illness Rylie Ferreira is a 74 year old female with past medical history of hypothyroidism, hypertension, type 2 diabetes mellitus, possible stroke, history of lymphedema, severe mitral valve stenosis presents to the ER today because of on and off headache, dizziness and lightheadedness specially on trying to sit up or stand up from laying position. Denies any loss of consciousness but does say she has been very close to losing consciousness few times. Denies any falls or hitting her head. Denies any recent changes in medications except addition of medications for headache. In the ER she was found to be symptomatically orthostatic with a blood pressure dropping from 137 systolic to 86 systolics. She denies any nausea, vomiting, diarrhea, dizziness. She was given 1 L IV fluid bolus after which her blood pressures improved to 167 systolic. Currently she denies any headache or headache or dizziness. Review of Systems General: Reports: 10 or more systems reviewed and unremarkable except in HPI and below Const: Denies: fever(s), chills, body aches, change in appetite, change in weight, malaise, night sweats, diaphoresis, change in sleep pattern, daytime sleepiness or snoring Eyes: Denies: change in vision, blurry vision, photophobia, eye discomfort or eye discharge ENMT: Denies: throat pain, enlarged tonsils, hoarseness, mouth pain, oral sores, dry mouth, tinnitus, nasal congestion or post nasal drip Card: Denies: chest pain, palpitations, irregular heart rhythm, edema, swelling of feet/ankles, lightheadedness, syncope, pre-syncope, dyspnea on exertion, orthopnea, leg pain with exertion or acrocyanosis Resp: Denies: dyspnea, productive cough, non-productive cough, wheezing, stridor, pain on inspiration, change in phlegm color, hemoptysis or chest congestion GI: Denies: abdominal pain, nausea, vomiting, hematemesis, coffee ground emesis, dysphagia, heartburn, diarrhea, constipation, bloating, GI cramping, change in bowel habits, pain on defecation, hematochezia or melena : Denies: flank pain, dysuria, urinary frequency, urinary urgency, urinary hesitancy, nocturia or hematuria Musc: Denies: neck pain, back pain, extremity pain, joint pain, joint swelling, joint redness, joint stiffness or limited range of motion Neuro: Denies: headache(s), numbness in extremities, weakness in extremities, sensory changes, lack of coordination, difficulty walking, frequent falls, dizziness, vertigo, confusion, Slurred speech present, difficulty communicating thoughts or seizure-like activity Psych: Denies: anxiety, depression, mood swings, panic attacks, hopelessness or irritability Endo: Denies: polyuria, polydipsia, tired all the time, cold intolerance, excessive sweating, flushing or heat intolerance Mario/Lymph: Denies: easy bruising or easy bleeding All/Imm: Denies: tongue swelling, facial swelling or acute wheezing Medications/Allergies Home Medications ?Medication ?Instructions ?Recorded ?Confirmed ?Last Taken ?Type calcium acetate(phosphat bind) 667 2,001 mg (3 x 667 mg) PO DAILY@12 12/01/24 04/14/25 04/13/25 Rx mg capsule #90 caps torsemide 20 mg tablet 20 mg PO QAM #90 tabs 12/20/24 04/14/25 04/14/25 Rx fluticasone propionate 50 2 spray intranasal BID PRN allergy 03/02/25 04/14/25 04/13/25 Rx mcg/actuation nasal symptoms #16 grams spray,suspension (Flonase Allergy Relief) meclizine 50 mg tablet 50 mg PO BID PRN dizziness #30 tabs 03/02/25 04/14/25 Unknown Rx sitagliptin phosphate 50 mg tablet 50 mg PO DAILY #90 tabs 03/20/25 04/14/25 04/14/25 Rx (Januvia) potassium chloride 20 mEq 20 meq PO DAILY #90 tabs 03/27/25 04/14/25 04/14/25 Rx tablet,extended release cyclobenzaprine 5 mg tablet 5 mg PO BID PRN muscle spasm #30 04/05/25 04/14/25 04/13/25 Rx tabs levothyroxine 75 mcg tablet 75 mcg PO DAILY@08 #90 tabs 04/05/25 04/14/25 04/14/25 Rx sumatriptan succinate 100 mg tablet See Rx Instructions PO .COMPLEX 04/05/25 04/14/25 Unknown Rx #10 tabs amitriptyline 25 mg tablet 25 mg PO DAILY #30 tabs 04/12/25 04/14/25 04/13/25 Rx semaglutide 1 mg/dose (4 mg/3 mL) See Rx Instructions .Route 04/13/25 04/14/25 Unknown Rx subcutaneous pen injector (Ozempic) .COMPLEX #3 mL Allergies Allergy/AdvReac Type Severity Reaction Status Date / Time albuterol Allergy ALGY-Difficulty Verified 04/07/25 12:14 Breathing PFSH Acute PFSH: Medical History (Updated 04/14/25 @ 16:25 by Mitesh Lovett MD) Cat scratch Spinal stenosis, lumbar region, with neurogenic claudication Degenerative disc disease Chronic migraine without aura, intractable, with status migrainosus Stroke due to embolism of middle cerebral artery History of fracture of wrist surgically repaired History of fracture of clavicle Degenerative joint disease Hypothyroidism Sleep apnea Cutaneous sarcoidosis Osteoporosis Chronic kidney disease Hypertension Diabetes Surgical History History of right hip replacement S/P trigger finger release History of appendectomy Hx of tubal ligation History of eyelid surgery Family History Daughter Cancer abdominal Family/Other Cancer Paternal aunt-breast Other CAD (coronary artery disease) Chronic kidney disease (CKD) Diabetes Hyperlipidemia Lung disease Denies family history of Clotting disorder Dementia Psychiatric illness Anesthesia complication Bleeding disorder Hypertension Stroke Social History Smoking and tobacco/nicotine status: never used tobacco/nicotine Alcohol intake: never Substance/Drug Use: never Lives independently: Yes Housing: House Marital status: / Number of children: 2 Current occupational status: disabled Vitals/I&O/Wt Last Vital Signs Temp 98.3 F 04/14/25 09:19 Pulse 66 04/14/25 13:30 Resp 16 04/14/25 09:19 BP 162/87 04/14/25 13:30 Pulse Ox 93 04/14/25 13:30 O2 Del Method Room Air 04/14/25 13:30 04/14/25 04/14/25 04/14/25 06:59 14:59 22:59 Intake Total 1000 / 1000 Balance 1000 / 1000 Weight last 48 hrs Weight 92.986 kg Physical Exam Narrative: General: No acute distress, AO x3, dehydrated HEENT: PERRLA, pupils bilaterally equal and reactive Chest: Normal vesicular breath sounds, no added sounds, equal good air entry bilaterally CVS: S1-S2 regular, no murmurs, no tachycardia, no gallops, no rubs Abdomen: Soft, nontender, no organomegaly, bowel sounds present Neuro: No focal deficits, no facial deformity, AO x3, power 5/5 in all limbs Data 04/14/25 09:05 04/14/25 10:09 A&P Assessment and plan (1) Dizziness: Most likely in setting of orthostatic hypotension. Dizziness is mostly positional. Patient does have evidence of bradycardia. Check EKG. Also has concerns for migraine. Cannot rule out complex migraine. Fall precautions. Continue with home dose of meclizine. (2) Orthostatic hypotension: Significant orthostatic drop in ER. Received 1 L fluid bolus. Start NS at 75 cc/h. Check orthostatic blood pressures every shift. Most likely in setting of dehydration given patient takes torsemide at home. Cannot rule out autonomic dysfunction given history of CVA, possible demyelinating disease as per neurology under evaluation, type 2 diabetes mellitus. Will request for compression stockings. Target no orthostasis versus orthostasis without symptoms. (3) Hypertension: Goal blood pressure less than 140/90 mmHg with mean over 65. Hold off on antihypertensive for now. (4) Severe mitral valve stenosis: No concern for right heart failure. Repeat echocardiogram. Telemetry. (5) Diabetes: Check A1c. Take sitagliptin and semaglutide at home. Sliding scale at low-dose protocol for now. (6) Hypothyroidism: Continue home dose of levothyroxine. Check TSH. (7) Chronic migraine without aura, intractable, with status migrainosus: (8) Stroke due to embolism of middle cerebral artery: Plan CKD: Baseline creatinine seems to be around 1.2-1.8. Currently creatinine at baseline. Medical reconciliation done for nephrotoxic drugs. Monitor BMP daily. Full code Carb consistent diet Famotidine for PUD prophylaxis Heparin 5000 every 12 hourly for DVT prophylaxis. PDMP PDMP Reviewed: Not Reviewed Attestations Medical Necessity Statement*: Admission under observation for management of orthostatic symptomatic hypotension with dizziness and lightheadedness. Diagnoses Dizziness R42 Orthostatic hypotension I95.1 Hypertension I10 Severe mitral valve stenosis I05.0 Diabetes E11.9 Acquired hypothyroidism E03.9 Hypothyroidism type: acquired Chronic migraine without aura, intractable, with status migrainosus G43.711 Stroke due to embolism of middle cerebral artery I63.419
[2025-04-14] MEDS: sodium chloride 0.9% 1,000 ML 100 ML IV (15:22)
[2025-04-14 15:42] LABS: Potassium, Radom Urine 28 mmol/L; Urine Random Chloride 40 mmol/L; Urine Random Sodium 50 mmol/L
[2025-04-14 15:51] LABS: Procalcitonin 0.08 ng/mL (0-0.5)
[2025-04-14 17:08] LABS: Estmated Average Glucose 137; Hemoglobin A1C 6.4 % (4.0-6.0)
[2025-04-14 17:24] LABS: Iron 45 ug/dL (37-145); Percent Saturation 21.5 % (20-50); Thyroid Stimulating Hormone 2.32 uIU/mL (0.27-4.20); Total Iron Binding Capacity 209 mcg/dl; Unsaturated Iron Binding 164 ug/dL (112-347); Vitamin B12 199 pg/mL (232-1245)
[2025-04-14] MEDS: famotidine 20 mg Tablet PO (17:56)
[2025-04-14] MEDS: heparin 5,000 unit/mL INJ 1 mL 5000 UNIT SUBCUT (17:56)
[2025-04-14] MEDS: docusate sodium 100 mg Capsule PO (17:56)
[2025-04-14] MEDS: cyanocobalamin 1,000 mcg/mL SDV 1000 MCG IM (21:14)
[2025-04-15] MEDS: sodium chloride 0.9% 1,000 ML 100 ML IV (01:15)
[2025-04-15 04:00] VITALS: BP 143/78; PULSE 68; RESP 16; TEMP 36.6; O2SAT 94
[2025-04-15 04:45] LABS: Basophils # 0.1 10^3/uL (0.0-0.1); Basophils % 0.9 %; Eosinophils # 0.3 10^3/uL (0.0-0.8); Eosinophils % 3.1 %; Hematocrit 39.5 % (36-47); Lymphocytes % 21.1 %; Mean Corpuscular HGB Conc 32.2 g/dL (30-55); Mean Corpuscular Hemoglobin 30.8 pg (27-33); Mean Corpuscular Volume 95.9 fl (85-98); Mean Platelet Volume 11.1 fL (7.4-10.4); Monocytes # 0.8 10^3/uL (0.2-0.9); Monocytes % 8.3 %; Neutrophils # 6.13 10^3/uL (1.8-7.7); Neutrophils % 66.2 %; Nucleated Red Blood Cells % 0 %; Platelet Count 214 10^3/cmm (157-399); Red Blood Count 4.12 10^6/uL (3.85-5.65); Red Cell Distribution Width 12.5 % (12.1-15.1); White Blood Count 9.27 10^3/uL (3.29-11.43)
[2025-04-15 05:06] LABS: Chol HDL Ratio 3.44 mg/dL (0.0-4.40); Cholesterol 141 mg/dL (0-200); HDL Cholesterol 41 mg/dL (60-100); LDL Cholesterol Calculated 81 mg/dL (50-129); LDL HDL Ratio 1.98 RATIO (0.00-3.22); Triglycerides 93 mg/dL (0-150)
[2025-04-15 05:09] LABS: Alanine Aminotransferase < 5 U/L (0-33); Albumin Level 3.1 g/dL (3.5-5.2); Alkaline Phosphatase 67 U/L (35-105); Anion Gap 13.8 (5-19); Aspartate Amino Transferase 9 U/L (0-32); Blood Urea Nitrogen 18 mg/dL (8-23); Calcium 8.4 mg/dL (8.5-10.5); Carbon Dioxide 24 mmol/L (22-29); Chloride 107 mmol/L (98-107); Creatinine Clr Calc Pharmacy 51.6772; Globulin 2.8 g/dL (1.3-4.6); Glucose 153 mg/dL (65-115); Magnesium 1.8 mg/dL (1.7-2.3); Osmolality Calculated 297 mOsm/kg (285-295); Potassium 3.8 mmol/L (3.5-5.1); Sodium 141 mmol/L (136-145); Total Bilirubin 0.6 mg/dL (0.15-1.2); Total Protein 5.9 g/dL (6.6-8.7)
[2025-04-15] MEDS: heparin 5,000 unit/mL INJ 1 mL 5000 UNIT SUBCUT (05:10)
[2025-04-15 05:55] LABS: Folate Level 8.3 ng/mL (4.8-37.3)
[2025-04-15 07:48] VITALS: BP 104/68; BP 133/59; BP 146/72; PULSE 58; PULSE 67; PULSE 69; RESP 17; TEMP 36.7; O2SAT 92
[2025-04-15] MEDS: amitriptyline 25 mg Tablet PO (08:41)
[2025-04-15] MEDS: cyanocobalamin 1,000 mcg/mL SDV 1000 MCG IM (08:41)
[2025-04-15] MEDS: meclizine 25 mg tablet PO (08:41)
[2025-04-15] MEDS: levothyroxine 75 mcg Tablet PO (08:41)
[2025-04-15] MEDS: famotidine 20 mg Tablet PO (08:41)
[2025-04-15] MEDS: docusate sodium 100 mg Capsule PO (08:41)
[2025-04-15] MEDS: acetaminophen 325 mg Tablet 650 MG PO (09:34)
[2025-04-15 09:58] LABS: Bilirubin Urine Negative (Negative); Blood Urine 1+ (Negative); Glucose Urine UA Negative (Normal); Ketones Urine Trace (Negative); Leukocyte Esterase Urine 2+ (Negative); Nitrate Urine Negative (Negative); Protein Urine Negative (Negative); Specific Gravity, Urine 1.015 (1.005-1.030); Urine Appearance Cloudy (CLEAR); Urine Color Yellow (Yellow); pH Urine 5.5 (5-7)
[2025-04-15 10:03] LABS: Add Urine Microscopic? YES; Bacteria Urine 2+ /hpf; Hyaline Casts Urine 1.65 /lpf; Squamous Epithelial Cell Urine 21-50 /hpf (0-5); WBC Urine 21-50 /hpf (0-5)
--- NOTE | 2025-04-15 10:19 | PM.DCS ---
Discharge Providers Date of Admission: 04/14/25 12:27 Date of Discharge: April 15, 2025 Attending Provider at Admission: Mitesh Lovett MD Attending Provider at Discharge: Mitesh Lovett MD Primary Care Provider: David Rodriguez MD Diagnoses at Discharge Discharge Diagnosis (1) Dizziness: Status: Acute (2) Orthostatic hypotension: Status: Acute (3) Hypertension: Status: Acute (4) Severe mitral valve stenosis: Status: Acute (5) Diabetes: Status: Acute (6) Hypothyroidism: Status: Acute Qualifiers: Hypothyroidism type: acquired Qualified Code(s): E03.9 - Hypothyroidism, unspecified (7) Chronic migraine without aura, intractable, with status migrainosus: Status: Acute (8) Stroke due to embolism of middle cerebral artery: Status: Acute Reason for Visit Reason for Visit: DIZZY Hospital Course Hospital Course Rylie Ferreira is a 74 year old female with past medical history of hypothyroidism, hypertension, type 2 diabetes mellitus, possible stroke, history of lymphedema, severe mitral valve stenosis presents to the ER today because of on and off headache, dizziness and lightheadedness specially on trying to sit up or stand up from laying position. Denies any loss of consciousness but does say she has been very close to losing consciousness few times. Denies any falls or hitting her head. Denies any recent changes in medications except addition of medications for headache. In the ER she was found to be symptomatically orthostatic with a blood pressure dropping from 137 systolic to 86 systolics. She denies any nausea, vomiting, diarrhea, dizziness. She was given 1 L IV fluid bolus after which her blood pressures improved to 167 systolic. Currently she denies any headache or headache or dizziness. Patient was admitted to the hospital for evaluation and management of positive orthostatic. She was started on IV hydration and her home dose of torsemide was discontinued. She responded well to the treatment. Her orthostatic blood pressures have resolved. She denies of having any dizziness with ambulation. Echocardiogram was done which showed a normal EF with mild elevated right-sided and pulmonary pressures. She was found to be having severe vitamin B12 deficiency for which she has been started on oral 5000 mcg of B12 replacement. She has been discharged in medically stable condition with advised to take torsemide as needed for a increase in body weight by 5 pounds. She is advised in detail to wear compression stockings. Physical Exam Narrative: General: No acute distress, AO x3, dehydrated HEENT: PERRLA, pupils bilaterally equal and reactive Chest: Normal vesicular breath sounds, no added sounds, equal good air entry bilaterally CVS: S1-S2 regular, no murmurs, no tachycardia, no gallops, no rubs Abdomen: Soft, nontender, no organomegaly, bowel sounds present Neuro: No focal deficits, no facial deformity, AO x3, power 5/5 in all limbs Discharge Data Studies Completed and Pending Completed Studies During Hospitalization Category Date Time Status CT head wo con* [id number] Stat Cat Scan 04/14/25 12:29 Completed Pending at discharge Category Date Time Status Complete Blood Count w/Auto AM LABS Lab 04/16/25 04:00 Ordered Complete Blood Count w/Auto AM LABS Lab 04/17/25 04:00 Ordered Comprehensive Metabolic Panel AM LABS Lab 04/16/25 04:00 Ordered Comprehensive Metabolic Panel AM LABS Lab 04/17/25 04:00 Ordered Magnesium AM LABS Lab 04/16/25 04:00 Ordered Magnesium AM LABS Lab 04/17/25 04:00 Ordered Phosphorus AM LABS Lab 04/16/25 04:00 Ordered Phosphorus AM LABS Lab 04/17/25 04:00 Ordered Urinalysis Routine Lab 04/14/25 11:52 Received CV. echo complete* [id number] Routine Ultrasound 04/15/25 14:59 Taken Radiology Impressions Head CT 04/14/25 12:29 IMPRESSION: 1. No acute intracranial hemorrhage or edema. 2. Mild atrophy and moderate small vessel disease. Similar to the prior study of 03/06/2025. Echocardiogram: CONCLUSIONS Normal left ventricular size and function. Normal LVEF 60% Normal chamber sizes. Moderate degenerative changes of mitral and aortic valve without any significant functional valvular abnormality. Mildly elevated right heart and pulmonary pressures (40-45mmHg). Dagoberto Vargas MD (Electronically Signed) Final Date: 15 Apr 2025 10:18 S Laboratory Results WBC 9.27 10^3/uL (3.29-11.43) 04/15/25 03:42 RBC 4.12 10^6/uL (3.85-5.65) 04/15/25 03:42 Hgb 12.70 g/dL (11.27-16.99) 04/15/25 03:42 Hct 39.5 % (36-47) 04/15/25 03:42 MCV 95.9 fl (85-98) 04/15/25 03:42 MCH 30.8 pg (27-33) 04/15/25 03:42 MCHC 32.2 g/dL (30-55) 04/15/25 03:42 RDW 12.5 % (12.1-15.1) 04/15/25 03:42 Plt Count 214 10^3/cmm (157-399) 04/15/25 03:42 MPV 11.1 fL (7.4-10.4) H 04/15/25 03:42 Neut % (Auto) 66.2 % 04/15/25 03:42 Lymph % (Auto) 21.1 % 04/15/25 03:42 Childress % (Auto) 8.3 % 04/15/25 03:42 Eos % (Auto) 3.1 % 04/15/25 03:42 Baso % (Auto) 0.9 % 04/15/25 03:42 Neut # (Auto) 6.13 10^3/uL (1.8-7.7) 04/15/25 03:42 Lymph # (Auto) 2.0 10^3/uL (0.8-4.8) 04/15/25 03:42 Childress # (Auto) 0.8 10^3/uL (0.2-0.9) 04/15/25 03:42 Eos # (Auto) 0.3 10^3/uL (0.0-0.8) 04/15/25 03:42 Baso # (Auto) 0.1 10^3/uL (0.0-0.1) 04/15/25 03:42 Nucleated RBC % (auto) 0 % 04/15/25 03:42 Nucleated RBCs # 0.0 /100WBC 04/15/25 03:42 Sodium 141 mmol/L (136-145) 04/15/25 03:42 Potassium 3.8 mmol/L (3.5-5.1) 04/15/25 03:42 Chloride 107 mmol/L (98-107) 04/15/25 03:42 Carbon Dioxide 24 mmol/L (22-29) 04/15/25 03:42 Anion Gap 13.8 (5-19) 04/15/25 03:42 BUN 18 mg/dL (8-23) 04/15/25 03:42 Creatinine 1.1 mg/dL (0.5-0.9) H 04/15/25 03:42 GFR Calculation Not Reportable 04/15/25 03:42 Glucose 153 mg/dL (65-115) H 04/15/25 03:42 Estimat Average Glucose 137 04/14/25 09:05 Hemoglobin A1c 6.4 % (4.0-6.0) H 04/14/25 09:05 Calculated Osmolality 297 mOsm/kg (285-295) H 04/15/25 03:42 Lactic Acid 1.0 mmol/L (0.5-2.2) 04/14/25 15:08 Calcium 8.4 mg/dL (8.5-10.5) L 04/15/25 03:42 Phosphorus 3.0 mg/dL (2.5-4.5) 04/15/25 03:42 Magnesium 1.8 mg/dL (1.7-2.3) 04/15/25 03:42 Iron 45 ug/dL (37-145) 04/14/25 09:05 TIBC 209 mcg/dl 04/14/25 09:05 % Saturation 21.5 % (20-50) 04/14/25 09:05 Unsat Iron Binding 164 ug/dL (112-347) 04/14/25 09:05 Total Bilirubin 0.6 mg/dL (0.15-1.2) 04/15/25 03:42 AST 9 U/L (0-32) 04/15/25 03:42 ALT < 5 U/L (0-33) 04/15/25 03:42 Alkaline Phosphatase 67 U/L (35-105) 04/15/25 03:42 Total Protein 5.9 g/dL (6.6-8.7) L 04/15/25 03:42 Albumin 3.1 g/dL (3.5-5.2) L 04/15/25 03:42 Globulin 2.8 g/dL (1.3-4.6) 04/15/25 03:42 Triglycerides 93 mg/dL (0-150) 04/15/25 03:42 Cholesterol 141 mg/dL (0-200) 04/15/25 03:42 LDL Cholesterol, Calc 81 mg/dL (50-129) 04/15/25 03:42 HDL Cholesterol 41 mg/dL (60-100) L 04/15/25 03:42 LDL/HDL Ratio 1.98 RATIO (0.00-3.22) 04/15/25 03:42 Cholesterol/HDL Ratio 3.44 mg/dL (0.0-4.40) 04/15/25 03:42 Vitamin B12 199 pg/mL (232-1245) L 04/14/25 09:05 Folate 8.3 ng/mL (4.8-37.3) 04/15/25 03:42 Procalcitonin 0.10 ng/mL (0-0.5) 04/15/25 03:42 TSH 2.32 uIU/mL (0.27-4.20) 04/14/25 09:05 Amorphous Sediment Not Reportable 04/14/25 11:52 Ur Random Sodium 50 mmol/L 04/14/25 11:52 Ur Random Potassium 28 mmol/L 04/14/25 11:52 Ur Random Chloride 40 mmol/L 04/14/25 11:52 Vitals Last Vital Signs Temp 98.1 F 04/15/25 07:48 Pulse 58 L 04/15/25 07:48 Resp 17 04/15/25 07:48 BP 133/59 04/15/25 07:48 Pulse Ox 92 04/15/25 07:48 O2 Del Method Room Air 04/15/25 07:48 Discharge Plan Discharge Patient Disposition: Home Condition: Stable Prescriptions: New cyanocobalamin (vitamin B-12) 5,000 mcg capsule 5,000 mcg PO DAILY Qty: 90 1RF levofloxacin 500 mg tablet 500 mg PO Q24H 5 Days Qty: 5 0RF Continued fluticasone propionate [Flonase Allergy Relief] 50 mcg/actuation spray,suspension 2 spray intranasal BID PRN (Reason: allergy symptoms) Qty: 16 0RF Rx Instructions: administer into each nostril sumatriptan succinate 100 mg tablet See Rx Instructions PO .COMPLEX Qty: 10 0RF Rx Instructions: take 1 tab at onset of headache; if no relief, may repeat 1 tab after at least 2 hrs; max = 2 tabs/24 hrs PO cyclobenzaprine 5 mg tablet 5 mg PO BID PRN (Reason: muscle spasm) Qty: 30 1RF levothyroxine 75 mcg tablet 75 mcg PO DAILY@08 Qty: 90 1RF calcium acetate(phosphat bind) 667 mg capsule 2,001 mg PO DAILY@12 Qty: 90 1RF Januvia 50 mg tablet 50 mg PO DAILY Qty: 90 1RF potassium chloride 20 mEq tablet extended release 20 meq PO DAILY Qty: 90 1RF amitriptyline 25 mg tablet 25 mg PO DAILY Qty: 30 1RF Ozempic 1 mg/dose (4 mg/3 mL) pen injector See Rx Instructions .ROUTE .COMPLEX Qty: 3 2RF Dose Instruction: INJECT 1MG (0.5ML) SUBCUTANEOUSLY ONCE WEEKLY Rx Instructions: INJECT 1MG (0.5ML) SUBCUTANEOUSLY ONCE WEEKLY meclizine 50 mg tablet 50 mg PO BID PRN (Reason: dizziness) Qty: 30 0RF Changed torsemide 20 mg tablet 20 mg PO QAM PRN (Reason: swelling) Qty: 90 1RF Discharge Orders: Discharge Order (Routine); Ordered 04/15/25 Ordered By: Mitesh Lovett Referrals: David Rodriguez MD [Primary Care Provider, Family Practice] - 2 weeks Referral Note: We have notified your physician's clinic of the need for a follow-up appointment to be scheduled. If you have not heard from them within the next 2 business days, please call them directly. Problems: Dizziness; Orthostatic hypotension Discharge Diet: Cardiac Discharge Activity: Resume usual activity and Increase activity as tolerated Patient Instructions: Levofloxacin (By mouth), Vitamin B-12 (By mouth), Vertigo (DC), Opioid Safety, Pain Management Activity Restrictions/Additional Instructions: For now do not take torsemide until less you notice increased swelling or weight gain of more than 5 pounds. Please continue to wear your compression stockings. Please check your blood pressure daily at home and maintain a blood pressure diary. Please change positions from laying to standing gradually within 1 minute. Take vitamin B12 supplements as prescribed regularly. Discharge Attestations Time Spent in Discharge Care*: greater than 30 min Specific Discharge Activities: educating patient, discussing with pcp/other providers, discussing with supportive employment case manager/social workers/dc planners, documenting/other paperwork and evaluating patient/reviewing data Status at Discharge: Cognitive status at discharge: cognitively intact, Behavioral status at discharge: cooperative, Functional status at discharge: uses cane/walker, Overall status at discharge: patient is progressing back to baseline Quality Metrics Clinical Quality Measures [ No reported AMI, CVA or VTE this stay] Coding Level of Care Code 61557 Total time (in minutes) for Discharge: 60 Diagnoses Dizziness R42 Orthostatic hypotension I95.1 Hypertension I10 Severe mitral valve stenosis I05.0 Diabetes E11.9 Acquired hypothyroidism E03.9 Hypothyroidism type: acquired Chronic migraine without aura, intractable, with status migrainosus G43.711 Stroke due to embolism of middle cerebral artery I63.419
[2025-04-15 10:25] LABS: UA Slide Review UA Slide Review Perf
[2025-04-15] MEDS: calcium acetate 667 mg Capsule 2001 MG PO (11:06)
--- NOTE | 2025-04-15 11:21 | PC.NURSE ---
Addendum entered by Malena Mtz RN 04/15/25 13:09: This note was make in error as the doctor rounded at 6:30 and this nurse was unaware. Original Note: The patient has a discharge order but is on hold until the doctor sees them this morning.
[2025-04-15 11:54] VITALS: BP 168/78; PULSE 73; RESP 18; TEMP 36.4; O2SAT 93
[2025-04-15 12:29] LABS: Glucose Point of Care 125 mg/dL (70-110)
--- NOTE | 2025-04-15 12:40 | PC.NURSE ---
Went over patient's discharge and discontinued patient's IV to Left AC. Patient stated she is waiting on her son to leave work and would not have a ride until he got off of work at 3PM. So patient remaining here until her ride is here.
--- NOTE | 2025-04-15 12:42 | PC.NURSE ---
Discharge Note Patient discharged to home via private vehicle accompanied by son. 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 Mobile pharmacy medications and/or prescriptions provided. Belongings/home medications returned. Educated patient on medication changes and to keep a log of blood pressure and weights daily to take with her to primary care appointments.
[2025-04-15 12:45] VITALS: BP 168/78; PULSE 73; RESP 18; TEMP 36.4; O2SAT 93
--- NOTE | 2025-04-15 14:59 | USCV_ITS ---
FerreiraRylie Age: 74 Gender: F : 1950 Exam Date: 04/15/2025 08:18 Ordering Phys: Mitesh Lovett MD Technologist: MING [place]am Location[place] [facility] [place] Indication: orthostatic hypotension BP: 143 / 78 HR: 64 Rhythm: Sinus Technical Quality: Adequate MEASUREMENTS (Male / Female) Normal Values 2D ECHO LV Diastolic Diameter PLAX 3.3 cm 4.2 - 5.9 / 3.9 - 5.3 cm IVS Diastolic Thickness 1.1 cm 0.6 - 1.0 / 0.6 - 0.9 cm IVS Systolic Thickness 1.3 cm LVPW Diastolic Thickness 1.8 cm 0.6 - 1.0 / 0.6 - 0.9 cm LVPW Systolic Thickness 1.7 cm LVOT Diameter 2.0 cm LV Ejection Fraction 2D Teich 64.2 % LV Ejection Fraction MOD 4C 61.9 % LV Ejection Fraction MOD 2C 64.4 % LV Ejection Fraction 2C AL 66.0 % LA Diameter 3.6 cm RA Systolic Volume 4C AL 28.5 ml RA Systolic Volume 4C MOD 28.4 ml LA Sys Volume AL 58.1 cm cubed LA Sys Volume Index AL 27.4 cm cubed/m squared Aorta at Sinotubular Diameter 2.0 cm IVC Diameter 1.9 cm M-MODE LA Ao Ratio MM 1.6 AV Cusp Separation MM 0.9 cm DOPPLER AV Peak Velocity 191.0 cm/s LVOT Peak Velocity 88.0 cm/s AV Area Cont Eq vti 1.5 cm squared AV Area Cont Eq pk 1.5 cm squared MV Peak Velocity 157.0 cm/s MV Area PHT 3.2 cm squared Mitral E to A Ratio 0.9 TV Peak Velocity 293.0 cm/s TR Peak Velocity 338.0 cm/s TR Peak Gradient 45.7 mmHg TR Mean Velocity 239.0 cm/s TR Mean Gradient 26.1 mmHg TR Velocity Time Integral 116.0 cm PV Peak Velocity 111.0 cm/s RV Ejection Time 0.3 s FINDINGS Left Ventricle Normal left ventricular size, systolic function and wall thickness, with no regional wall motion abnormalities. Left ventricular ejection fraction is estimated at 60 %. Right Ventricle Normal right ventricular size and systolic function. Right Atrium Normal right atrial size. Left Atrium Normal left atrial size. Mitral Valve Thickened mitral valve. Moderate mitral annular calcification. Mild mitral valve regurgitation. Aortic Valve Thickened aortic valve. No aortic valve stenosis. Tricuspid Valve Structurally normal tricuspid valve. Trace tricuspid valve regurgitation. Mildly elevated TR gradient (40-45mmHg). Pulmonic Valve Pulmonic valve not well visualized. Trace pulmonary valve regurgitation. Pericardium No pericardial effusion. Aorta Normal size aortic root and proximal ascending aorta. IVC Normal inferior vena cava. CONCLUSIONS Normal left ventricular size and function. Normal LVEF 60% Normal chamber sizes. Moderate degenerative changes of mitral and aortic valve without any significant functional valvular abnormality. Mildly elevated right heart and pulmonary pressures (40-45mmHg). Dagoberto Vargas MD (Electronically Signed) Final Date: 15 Apr 2025 10:18 S
== END 2025-04-15 15:10 | disposition home or self-care (01) ==
LOC: ER 13:03 → MEDSURG 15:29
PROVIDERS: Admitting Provider Student in an Organized Health Care Education/Training Program; Emergency Provider Family Medicine; PCP Family Medicine; Visit Provider Student in an Organized Health Care Education/Training Program
DX: I95.1 Orthostatic hypotension (principal); G43.711 Chronic migraine without aura, intractable, with status migrainosus; R42 Dizziness and giddiness; I05.0 Rheumatic mitral stenosis; E03.9 Hypothyroidism, unspecified; G47.30 Sleep apnea, unspecified; E11.22 Type 2 diabetes mellitus with diabetic chronic kidney disease; I12.9 Hypertensive chronic kidney disease with stage 1 through stage 4 chronic kidney disease, or unspecified chronic kidney disease; N18.9 Chronic kidney disease, unspecified; Z83.3 Family history of diabetes mellitus; Z84.1 Family history of disorders of kidney and ureter; E53.8 Deficiency of other specified B group vitamins
CPT/HCPCS: 36415; 36416; 70450; 80053; 80061; 81001; 82436; 82607; 82746; 82962; 83036; 83540; 83550; 83605; 83735; 84100; 84133; 84145; 84300; 84443; 85025; 93005; 93306; 94664; 96360; 96361; 96372; 99285; G0378; J1644; J3420; J7030; J8597; J9999

== ENCOUNTER → 2025-04-20 14:35 | Outpatient (BNVA) | payer MEDICARE, MEDICAID, SELFPAY | PROVIDERS: PCP Family Medicine; Visit Provider Specialist | DX: R56.9 Unspecified convulsions (principal) | CPT/HCPCS: 95816 ==

== ENCOUNTER 2025-05-04 15:04 | Outpatient (CLI) | payer MEDICARE, MEDICAID, SELFPAY ==
--- NOTE | 2025-05-04 15:00 | MR_ITS ---
WS: [id number] MRA CAROTID ARTERIES HISTORY: I63.419 - Cerebral infarction due to embolism of unspecif... COMPARISON: None available. TECHNIQUE: MRA is performed with intravenous gadolinium. MIP and source images are reviewed. Right: No significant cervical carotid artery stenosis. Bifurcation is intact. Left: No significant cervical carotid artery stenosis. Bifurcation is intact. Subclavian Arteries: Normal. Vertebral Arteries: LEFT vertebral artery is smaller caliber than the RIGHT but it is patent. Dominant RIGHT vertebral artery with no stenosis. MR/MR angio neck w con* [id number] IMPRESSION: 1. No cervical carotid artery stenosis or occlusion. 2. Diffusely small caliber LEFT vertebral artery but it is patent. 3. Dominant RIGHT vertebral artery.
== END 2025-05-04 15:05 | disposition home or self-care (01) ==
LOC: RAD 15:04
PROVIDERS: PCP Family Medicine; Visit Provider Specialist
DX: I63.419 Cerebral infarction due to embolism of unspecified middle cerebral artery (principal)
CPT/HCPCS: 70548

== ENCOUNTER → 2025-06-05 14:19 | Outpatient (BNVA) | payer MEDICARE, MEDICAID, SELFPAY | PROVIDERS: PCP Family Medicine; Visit Provider Anesthesiology Pain Medicine | DX: M54.50 Low back pain, unspecified (principal); G89.29 Other chronic pain; M48.062 Spinal stenosis, lumbar region with neurogenic claudication | CPT/HCPCS: 99214 ==

== ENCOUNTER 2025-06-16 08:29 | Observation (INO) | payer MEDICARE, MEDICAID, SELFPAY ==
--- OUTSIDE RECORDS SUMMARY | 2001-04-28 09:09 | XMS_ITS | Continuity of Care Document ---
Author Organization [facility] Address [address] [place] [id number] Phone Care Team Providers Care Prepared Foods Service Team Member Name Role Phone Oscar Simental Patricia Unavailable Unav ailable Advance Directives Directive Yes / No Effective Date File Name No Information Encounters Encounter Description Practice Location Reason(s) For Visit Diagnoses Date Provider Providers Copied on Encounter [facility], [address] [place] [address], [id number], tel:[phone] [facility] No Information 0-200 1 Oscar Simental. [address] [place] [address], [id number], . tel:[phone] Family History Family Member Type Diagnosis Age At Onset No Information Payers Payer name Insurance type Covered libertarian ID Authoriza tion(s) No Information Social History Type Description Quantity Date Captured Comments Sex Female Smoking Status No Information Chief Complaint And Reason For Visit No Information Reason For Referral Reason For Referral No Information History Of Present Illness Encounter Date Complaint History Of Prese nt Illness No Information Functional Status Date Functional Assessmen t No Information Instructions Date Instruction Additional Infor mation No Information Assessments Type Assessment Date No Information Patient Care Teams Name Effective Dates (start - stop) Status Members No Information
--- OUTSIDE RECORDS SUMMARY | 2005-05-02 07:29 | XMS_ITS | Continuity of Care Document ---
Author Organization [facility] Address [address] [place] [id number] Phone Care Team Providers Care Surgical Instrument Mechanic Name Role Phone Yovany Lovelace MD Unavailable Unavailable Medications Medication Instructions Dosage Effective Dates (start - stop) Status Comments Mevacor 20 mg Tab Take one tablet by mouth daily - Active Glucophage 500 mg Tab Take one tablet by mouth two times per day - Active GLYBURIDE 5MGTABLET Take one tablet by mouth two times per day - Active Advance Directives Directive Yes / No Effective Date File Name No Information Encounters Encounter Description Practice Location Reason(s) For Visit Diagnoses Date Provider Providers Copied on Encounter [facility], [address] [place] [address], [facility], tel:[phone] [facility] No Information Mohsen-0 3-200 5 Albania Pedroza. [address], [id number], . tel:[phone] [facility], [address] [place] [address], [facility], tel:[phone] [facility] No Information Apr-0 4-200 5 Albania Pedroza. [address], [id number], . tel:[phone] Referring Provider: Yovany Larson, [address], [id number]. tel:[phone] Family History Family Member Type Diagnosis Age At Onset No Information Payers Payer name Insurance type Covered alliance party ID Authoriza tiines(s) No Information Social History Type Description Quantity [...]
[2025-06-16] VITALS (11 sets, daily range): BP systolic 115–148; BP diastolic 69–78; PULSE 58–78; RESP 14–18; TEMP 36.3–36.7; O2SAT 92–98; BMI 31.6
--- NOTE | 2025-06-16 08:38 | XR_ITS ---
WS: [id number] XR chest 1V portable [id number] REASON FOR EXAM: dyspnea/cough FINDINGS: Compared to the examination of 12/25/2020. The patient has developed coarse linear and reticular lung opacities in the left lower mid lung parallel to the diaphragm. A mirror image less prominent abnormality is seen in the right lung. The chest is otherwise unchanged. Normal thoracic aorta and heart. Significant calcified hilar and mediastinal lymph nodes. Moderate degenerative spondylosis in the thoracic spine. XR/XR chest 1V portable [id number] IMPRESSION: Interval change of unknown chronicity in both lungs as above. Potentially this could represent an acute or subacute pneumonitis.
--- NOTE | 2025-06-16 09:19 | ED_ITS ---
HPI - Weakness 2 General: Chief complaint: Weakness Stated complaint: headaches,dizziness, strong urine smell Time Seen by Provider: 06/16/25 08:38 History of Present Illness: 74-year-old female presents emergency ro om complaints of headache and dizziness generalized weakness been going on for last several days. She states she just generally has not felt well she had a headache for nearly a week show and having difficulty walking. She has a history of cervical stenosis as well. She has not had any increased neck pain. No difficulty with speech or swallowing she denies fever sweats or chills. She thinks she may have a bladder infection states her urine feels smells very strongly. Associated symptoms: Denies chest pain, chills, dysuria or fever(s) Related Data Home Medications ?Medication ?Instructions ?Recorded ?Confirmed amitriptyline 50 mg tablet 50 mg PO BEDTIME 06/16/25 0 06/16/25 Previous Rx's ?Medication ?Instructions ?Recorded calcium acetate(phosphat bind) 667 2,001 mg (3 x 667 m g) PO DAILY@12 12/01/24 mg capsule #90 caps sitagliptin phosphate 50 mg tablet 50 mg PO DAILY #90 tabs 03/20/25 (Januvia) potassium chloride 20 mEq 20 meq PO DAILY #90 tabs tablet,extended release cyclobenzaprine 5 mg tablet 5 mg PO BID PRN muscle spa sm #30 04/05/25 tabs levothyroxine 75 mcg tablet 75 mcg PO DAILY@08 #90 tab s 04/05/25 sumatriptan succinate 100 mg tablet See Rx Instruction s PO .COMPLEX 04/05/25 #10 tabs semaglutide 1 mg/dose (4 mg/3 mL) See Rx Instructions .Route 04/13/25 subcutaneous pen injector (Ozempic) .COMPLEX #3 mL cyanocobalamin (vitamin B-12) 5,000 mcg PO DAILY #90 c aps 04/15/25 5,000 mcg capsule torsemide 20 mg tablet 20 mg PO QAM PRN swelling #9 0 tabs 04/15/25 Allergies Allergy/AdvReac Type Severity Reaction Status Date / Time albuterol Allergy ALGY-Difficulty Verified 06/05/25 14:21 Breathing Review of Systems 2 Const: Denies: fever(s) or chills Card: Denies: chest pain Resp: Denies: dyspnea GI: Denies: abdominal pain : Denies: dysuria, urinary frequency or urinary urgency Musc: Denies: neck pain or back pain Skin/Breast: Denies: rash PFSH ED 2 PFSH: Medical History Cat scratch Spinal stenosis, lumbar region, with neurogenic claudication Degenerative disc disease Chronic migraine without aura, intractable, with status migrainosus Stroke due to embolism of middle cerebral artery History of fracture of wrist surgically repaired History of fracture of clavicle Degenerative joint disease Hypothyroidism Sleep apnea Cutaneous sarcoidosis Osteoporosis Chronic kidney disease Hypertension Diabetes Surgical History History of right hip replacement S/P trigger finger release History of appendectomy Hx of tubal ligation History of eyelid surgery Family History Daughter Cancer abdominal Family/Other Cancer Paternal aunt-breast Other CAD (coronary artery disease) Chronic kidney disease (CKD) Diabetes Hyperlipidemia Lung disease Denies family history of Clotting disorder Dementia Psychiatric illness Anesthesia complication Bleeding disorder Hypertension Stroke Social History Smoking and tobacco/nicotine status: never used tobacco/nicotine Alcohol intake: never Substance/Drug Use: never Lives independently: Yes Housing: House Marital status: / Number of children: 2 Current occupational status: disabled Physical Exam 2 Const: GENERAL APPEARANCE: cooperative ORIENTATION/CONSCIOUSNESS: Yes awake, Yes oriented to person, Yes oriented to place and Yes oriented to time HENMT: COMMON NORMALS: normocephalic, atraumatic and hearing grossly normal bilaterally HEAD & SCALP: normocephalic and atraumatic Resp: COMMON NORMALS: normal respiratory effort, No retractions, No use of accessory muscles and clear to auscultation bilaterally AUSCULTATION: clear to auscultation bilaterally Cardio: COMMON NORMALS: regular rate, regular rhythm and No murmurs present (Cardio) RATE: regular rate RHYTHM: regular rhythm GI: COMMON NORMALS: Soft to palpation and No hepatosplenomegaly present A USCULTATION: Yes normoactive bowel sounds PALPATION: Yes Soft to palpation, No Tenderness to palpation present (GI), No Guarding due to palpation present (GI) and Yes No hepatosplenomegaly present Extremity: COMMON NORMALS: normal to inspection, capillary refill normal, no clubbing, cyanosis or edema, no calf tenderness and no pedal edema Neuro: SENSORIUM/ORIENTATION: Yes oriented to person, Yes oriented to place and Yes oriented to time Skin: COMMON NORMALS: no rashes or lesions noted GENERAL SKIN EXAM: no rashes or lesions noted Course 2 Vital Signs: Vital signs: Vital Signs Temperature 98.1 F 06/16/25 09:13 Pulse Rate 67 06/16/25 14:51 Respiratory Rate 16 06/16/25 14:43 Blood Pressure 146/73 06/16/25 09:18 Pulse Oximetry 96 06/16/25 14:51 Oxygen Delivery Me thod Nasal Cannula 06/16/25 14:51 Oxygen Flow Rate 1 06/16/25 14:51 MDM - Weakness Medical Decision Making Patient requiring 2 L oxygen vital signs been stable she has not been tachycardic she initially presented complaints of upper respiratory system symptoms. Chest x-ray showed Subacute pneumonitis. Started on antibiotics. Discussed with hospitalist orders written. Medical Records I reviewed the patient's medical records. Lab Data I reviewed the patient's lab results. 06/16/25 09:21 06/16/25 09:21 Radiology Impressions Chest X-Ray 06/16/25 08:38 IMPRESSION: Interval change of unknown chronicity in both lungs as above. Potentially this could represent an acute or subacute pneumonitis. Head CT 06/16/25 10:07 IMPRESSION: 1. No evidence of intracranial hemorrhage or mass effect. 2. Mild ethmoid sinusitis. 3. No acute intracranial findings. Laboratory Results WBC 13.94 10^3/uL (3.29-11.43) H 06/16/25 09:21 RBC 4.27 10^6/uL (3.85-5.65) 06/16/25 09:21 Hgb 12.80 g/dL (11.27-16.99) 06/16/25 09:21 Hct 39.7 % (36-47) 06/16/25 09:21 MCV 93.0 fl (85-98) 06/16/25 09:21 MCH 30.0 pg (27-33) 06/16/25 09:21 MCHC 32.2 g/dL (30-55) 06/16/25 09:21 RDW 11.8 % (12.1-15.1) L 06/16/25 09:21 Plt Count 310 10^3/cmm (157-399) 06/16/25 09:21 MPV 10.4 fL (7.4-10.4) 06/16/25 09:21 Neut % (Auto) 78.3 % 06/16/25 09:21 Lymph % (Auto) 10.8 % 06/16/25 09:21 Ida % (Auto) 7.1 % 06/16/25 09:21 Eos % (Auto) 2.7 % 06/16/25 09:21 Baso % (Auto) 0.5 % 06/16/25 09:21 Neut # (Auto) 10.91 10^3/uL (1.8-7.7) H 06/16/25 09:21 Lymph # (Auto) 1.5 10^3/uL (0.8-4.8) 06/16/25 09:21 Ida # (Auto) 1.0 10^3/uL (0.2-0.9) H 06/16/25 09:21 Eos # (Auto) 0.4 10^3/uL (0.0-0.8) 06/16/25 09:21 Baso # (Auto) 0.1 10^3/uL (0.0-0.1) 06/16/25 09:21 Nucleated RBC % (auto) 0 % 06/16/25 09:21 Nucleated RBCs # 0.0 /100WBC 06/16/25 09:21 D-Dimer 6.93 ug/mLFEU (0-0.59) H 06/16/25 09:21 Sodium 137 mmol/L (136-145) 06/16/25 09:21 Potassium 3.7 mmol/L (3.5-5.1) 06/16/25 09:21 Chloride 95 mmol/L (98-107) L 06/16/25 09:21 Carbon Dioxide 24 mmol/L (22-29) 06/16/25 09:21 Anion Gap 21.7 (5-19) H 06/16/25 09:21 BUN 20 mg/dL (8-23) 06/16/25 09:21 Creatinine 1.7 mg/dL (0.5-0.9) H 06/16/25 09:21 GFR Calculation Not Reportable 06/16/25 09:21 Glucose 122 mg/dL (65-115) H 06/16/25 09:21 Calculated Osmolality 288 mOsm/kg (285-295) 06/16/25 09:21 Calcium 9.2 mg/dL (8.5-10.5) 06/16/25 09:21 Total Bilirubin 1.0 mg/dL (0.15-1.2) 06/16/25 09:21 AST 13 U/L (0-32) 06/16/25 09:21 ALT 6 U/L (0-33) 06/16/25 09:21 Alkaline Phosphatase 102 U/L (35-105) 06/16/25 09:21 Total Protein 7.4 g/dL (6.6-8.7) 06/16/25 09:21 Albumin 3.5 g/dL (3.5-5.2) 06/16/25 09:21 Globulin 3.9 g/dL (1.3-4.6) 06/16/25 09:21 TSH 0.84 uIU/mL (0.27-4.20) 06/16/25 09:21 Urine Color Dark yellow (Yellow) A 06/16/25 09:49 Urine Appearance Clear (CLEAR) 06/16/25 09:49 Urine pH 5.5 (5-7) 06/16/25 09:49 Ur Specific [place] 1.019 (1.005-1.030) 06/16/25 09:49 Urine Protein Trace (Negative) A 06/16/25 09:49 Urine Glucose (UA) Negative (Normal) 06/16/25 09:49 Urine Ketones Trace (Negative) 06/16/25 09:49 Urine Blood Negative (Negative) 06/16/25 09:49 Urine Nitrate Negative (Negative) 06/16/25 09:49 Urine Bilirubin Negative (Negative) 06/16/25 09:49 Urine Urobilinogen 1.0 mg/dL (Negative) 06/16/25 09:49 Ur Leukocyte Esterase Negative (Negative) 06/16/25 09:49 Urine RBC 3-5 /hpf (0-2) 06/16/25 09:49 Urine WBC 0-5 /hpf (0-5) 06/16/25 09:49 Ur Squamous Epith Cells 0-5 /hpf (0-5) 06/16/25 09:49 Amorphous Sediment Not Reportable 06/16/25 09:49 Urine Bacteria None seen /hpf (NONE) 06/16/25 09:49 Hyaline Casts 7.01 /lpf 06/16/25 09:49 Fine Granular Casts 0-4 /lpf H 06/16/25 09:49 All radiology interpretation(s) finalized by discharge Discharge Plan Discharge Patient Disposition: Admitted As Inpatient Clinical Impression: Pneumonitis Condition: Stable Coding Level of Care Code ED [employer] for Isma Echols
[2025-06-16 09:38] LABS: Hematocrit 39.7 % (36-47); Hemoglobin 12.80 g/dL (11.27-16.99); Mean Corpuscular HGB Conc 32.2 g/dL (30-55); Mean Corpuscular Hemoglobin 30.0 pg (27-33); Mean Corpuscular Volume 93.0 fl (85-98); Nucleated Red Blood Cells % 0 %; Platelet Count 310 10^3/cmm (157-399); Red Blood Count 4.27 10^6/uL (3.85-5.65); White Blood Count 13.94 10^3/uL (3.29-11.43)
[2025-06-16 09:56] LABS: Alanine Aminotransferase 6 U/L (0-33); Albumin Level 3.5 g/dL (3.5-5.2); Alkaline Phosphatase 102 U/L (35-105); Anion Gap 21.7 (5-19); Aspartate Amino Transferase 13 U/L (0-32); Blood Urea Nitrogen 20 mg/dL (8-23); Calcium 9.2 mg/dL (8.5-10.5); Carbon Dioxide 24 mmol/L (22-29); Chloride 95 mmol/L (98-107); Creatinine Clr Calc Pharmacy 32.6066; Globulin 3.9 g/dL (1.3-4.6); Glucose 122 mg/dL (65-115); Osmolality Calculated 288 mOsm/kg (285-295); Potassium 3.7 mmol/L (3.5-5.1); Sodium 137 mmol/L (136-145); Total Protein 7.4 g/dL (6.6-8.7)
[2025-06-16 10:05] LABS: Glucose Urine UA Negative (Normal); Nitrate Urine Negative (Negative); Specific Gravity, Urine 1.019 (1.005-1.030)
--- NOTE | 2025-06-16 10:07 | CT_ITS ---
WS: [id number] CT HEAD TECHNIQUE: Noncontrast CT of the head obtained from the skullbase to the vertex. CLINICAL INFORMATION: Dizziness COMPARISON: CT 04/14/2025 DLP: 958.[address] scans at [facility] use at least one of these dose optimization techniques: automated exposure control; mA and/or kV adjustment per patient size (includes targeted exams where dose is matched to clinical indication); or iterative reconstruction. FINDINGS: No evidence of intracranial hemorrhage or mass effect. Ventricular system and basal cisterns are patent. Moderate small vessel changes with mild parenchymal volume loss. No extra-axial fluid collections. No evidence of mass or mass effect. Small amount of fluid in the ethmoid air cells. Mastoid air cells are well aerated. Vascular calcification. CT/CT head wo con* [id number] IMPRESSION: 1. No evidence of intracranial hemorrhage or mass effect. 2. Mild ethmoid sinusitis. 3. No acute intracranial findings.
[2025-06-16 10:10] LABS: Add Urine Microscopic? YES
[2025-06-16 10:16] LABS: UA Slide Review UA Slide Review Perf
--- NOTE | 2025-06-16 10:35 | ECG_ITS ---
[facility] Date: 2025-[facility]-16 Pat Name: Rylie Ferreira Department: Room: Gender: Female Head Porter: : 1950 Requested By: Froy Zuniga Order Number: [id number] Tamie MD: Collette Quiroga M.D. Measurements Intervals [place] Rate: 75 P: 83 MS: 232 QRS: 51 QRSD: 146 T: 38 QT: 428 QTc: 480 Interpretive Statements SINUS RHYTHM WITH FIRST DEGREE AV BLOCK RIGHT BUNDLE BRANCH BLOCK [120+ ms QRS DURATION, UPRIGHT V1, 40+ ms S IN I/aVL/V4/V5/V6] Compared to ECG 04/14/2025 09:26:09 First degree AV block now present Electronically Signed On 06-17-2025 14:10:34 CDT by Collette Quiroga M.D. [id number]
[2025-06-16] MEDS: levofloxacin-dextrose 5 % 750 MG/150 ML PREMIX 100 MG IV (12:09)
--- NOTE | 2025-06-16 13:26 | P.HP_ITS ---
Providers/Chief Complaint 2 Primary Care Provider: David Rodriguez MD Chief Complaint: headaches,dizziness, strong urine smell History of Present Illness Rylie Ferreira is a 74 year old female With past medical history of hypothyroidism hypertension, type 2 diabetes mellitus possible stroke, history of lymphedema, severe mitral valve stenosis, headaches dizziness presented to the hospital today for complaint of worsening headache and dizziness along with nausea and loss of appetite. She has been feeling thirsty all the time she states. She has not eaten much in the last few days. Denies losing consciousness hitting her head or falling. She states she has seen Dr. Gill and has had MRIs done as well. She states no one can seem to figure out what is wrong. Denies nausea vomiting diarrhea. She had a similar admission in March this year and at that admission was found to be orthostatic positive. She was started on IV hydration and torsemide dose was reduced. She states that she may have a bladder infection as her urine has been feeling very smelly. Denies any dysuria or increased frequency. She is accompanied by her son. Chest x-ray showed subacute pneumonitis she was started on antibiotics in the ER. White count 13,000, chloride 95, creatinine 1.7. Baseline creatinine 1.1-1.5. Medications/Allergies Home Medications ?Medication ?Instructions ?Recorded ?Confirmed ?Last Taken ?Type calcium acetate(phosphat bind) 667 2,001 mg (3 x 667 m g) PO DAILY@12 12/01/24 06/16/25 06/15/25 Rx mg capsule #90 caps sitagliptin phosphate 50 mg tablet 50 mg PO DAILY #90 tabs 03/20/25 06/16/25 06/15/25 Rx (Januvia) potassium chloride 20 mEq 20 meq PO DAILY #90 tabs 06/16/25 06/15/25 Rx tablet,extended release cyclobenzaprine 5 mg tablet 5 mg PO BID PRN muscle spa sm #30 04/05/25 06/16/25 04/13/25 Rx tabs levothyroxine 75 mcg tablet 75 mcg PO DAILY@08 #90 tab s 04/05/25 06/16/25 06/15/25 Rx sumatriptan succinate 100 mg tablet See Rx Instruction s PO .COMPLEX 04/05/25 06/16/25 Unknown Rx #10 tabs semaglutide 1 mg/dose (4 mg/3 mL) See Rx Instructions .Route 04/13/25 06/16/25 06/09/25 Rx subcutaneous pen injector (Ozempic) .COMPLEX #3 mL cyanocobalamin (vitamin B-12) 5,000 mcg PO DAILY #90 c aps 04/15/25 06/16/25 06/15/25 Rx 5,000 mcg capsule torsemide 20 mg tablet 20 mg PO QAM PRN swelling #9 0 tabs 04/15/25 06/16/25 04/14/25 Rx amitriptyline 50 mg tablet 50 mg PO BEDTIME 06/16/25 0 06/16/25 06/15/25 History Allergies Allergy/AdvReac Type Severity Reaction Status Date / Time albuterol Allergy ALGY-Difficulty Verified 06/05/25 14:21 Breathing PFSH Acute 2 PFSH: Medical History (Updated 06/16/25 @ 15:32 by Froy Arevalo DO) Cat scratch Spinal stenosis, lumbar region, with neurogenic claudication Degenerative disc disease Chronic migraine without aura, intractable, with status migrainosus Stroke due to embolism of middle cerebral artery History of fracture of wrist surgically repaired History of fracture of clavicle Degenerative joint disease Hypothyroidism Sleep apnea Cutaneous sarcoidosis Osteoporosis Chronic kidney disease Hypertension Diabetes Surgical History History of right hip replacement S/P trigger finger release History of appendectomy Hx of tubal ligation History of eyelid surgery Family History Daughter Cancer abdominal Family/Other Cancer Paternal aunt-breast Other CAD (coronary artery disease) Chronic kidney disease (CKD) Diabetes Hyperlipidemia Lung disease Denies family history of Clotting disorder Dementia Psychiatric illness Anesthesia complication Bleeding disorder Hypertension Stroke Social History Smoking and tobacco/nicotine status: never used tobacco/nicotine Alcohol intake: never Substance/Drug Use: never Lives independently: Yes Housing: House Marital status: / Number of children: 2 Current occupational status: disabled Vitals/I&O/Wt Last Vital Signs Temp 98.1 F 06/16/25 09:13 Pulse 76 06/16/25 11:30 Resp 16 06/16/25 09:18 BP 146/73 06/16/25 09:18 Pulse Ox 95 06/16/25 11:30 O2 Del Method Nasal Cannula 06/16/25 11:30 O2 Flow Rate 1 06/16/25 11:30 Weight last 48 hrs Weight 88.904 kg Physical Exam 2 Narrative: General: No acute distress, AO x3, dehydrated HEENT: PERRLA, pupils bilaterally equal and reactive Chest: Normal vesicular breath sounds, no added sounds, equal good air entry bilaterally CVS: S1-S2 regular, no murmurs, no tachycardia, no gallops, no rubs, bilateral pedal edema present. Abdomen: Soft, nontender, no organomegaly, bowel sounds present Neuro: No focal deficits, no facial deformity, AO x3, Data 06/16/25 09:21 06/16/25 09:21 Micro: Microbiology 06/16/25 12:28 Blood Culture - Preliminary Blood SPECIMEN COLLECTED 06/16/25 12:26 Blood Culture - Preliminary Blood SPECIMEN COLLECTED A&P Assessment and plan 1. Anxiety: 2. Hypertension: 3. Severe mitral valve stenosis: 4. Diabetes: 5. Hypothyroidism: 6. Headache: 7. Chronic migraine without aura, intractable, with status migrainosus: 8. Pneumonitis: 9. Dizziness: Plan: #Headache dizziness nausea loss of appetite #Subacute pneumonitis/questionable pneumonia #Severe mitral stenosis #Diabetes mellitus type 2 #Requiring supplemental oxygen at this time #Leukocytosis #Possible migraine headaches ? Patient's headache dizzy and nausea loss of appetite may be secondary to her semaglutide. However other causes are not ruled out. She has been having dizziness for about 2 months. MRI head was done in February which showed no acute pathology. It did show a small chronic infarct right frontal lobe laterally near the cortex. She has been following up with Dr. Gill. EEG was ordered as an. Unsure if that has been completed at this time. Her torsemide was discontinued at the previous hospitalization and added and has as needed. ? She has had loss of appetite as well. ? Denies any nausea or vomiting. ? She is requiring 1 L nasal cannula at this time saturating 98%. ? She was given IV Levaquin x 1 in the ER. ? Hospitalist requested to admit for subacute pneumonitis. ? Will check PT OT ? Sputum culture Gram stain ? Blood cultures ? Patient does have a leukocytosis 13,000 ? We will provide gentle IV fluid hydration and normal saline 75 cc/h ? I will check TSH. ? Will check carotid Dopplers ? Patient may benefit from an monitor at discharge to rule out occult arrhythmias. ? Ordered DuoNeb every 6 hours as needed. ? Check bacterial antigen strep and Legionella. ? Check orthostatic vitals - Continue amitriptaline Full code DVT prophylaxis: Heparin SQ twice daily PDMP PDMP Reviewed: Not Reviewed Attestations 2 Medical Necessity Statement*: Observation admission. Expect less than 2 midnight stay for headache dizziness Diagnoses Anxiety F41.9 Hypertension I10 Severe mitral valve stenosis I05.0 Diabetes E11.9 Hypothyroidism E03.9 Headache R51.9 Chronic migraine without aura, intractable, with status migrainosus G43.711 Pneumonitis J98.4 Dizziness R42
[2025-06-16] MEDS: methylPREDNISolone sod succ 40 mg/mL INJ IVP (13:47)
[2025-06-16] MEDS: heparin 5,000 unit/mL INJ 1 mL 5000 UNIT SUBCUT (13:47)
[2025-06-16 14:21] LABS: Thyroid Stimulating Hormone 0.84 uIU/mL (0.27-4.20)
--- NOTE | 2025-06-16 14:40 | USCV_ITS ---
Ferreira Rylie Age: 74 Gender: F : 1950 Exam Date: 06/16/2025 15:26 Ordering Phys: Jaimee Daugherty MD Technologist: [place] [facility] [place] bilat [place]mea PROCEDURES: The venous duplex Doppler examination of both lower extremities was performed in the standard fashion. The following venous structures were evaluated: common femoral vein, profunda vein, proximal portion of the greater saphenous vein, superficial femoral vein, and the popliteal vein. FINDINGS: Normal 2-D Doppler and augmentation and compressibility throughout the lower extremity venous structures. Additional imaging through the proximal calf veins also reveals no thrombus. Limited evaluation of the greater saphenous vein is patent with no thrombus. CONCLUSIONS No evidence of right lower extremity DVT. No evidence of left lower extremity DVT. Lazarus Tay MD (Electronically Signed) Final Date: 16 June 2025 16:11 S
[2025-06-17] VITALS (7 sets, daily range): BP systolic 97–136; BP diastolic 60–78; PULSE 64–100; RESP 14–18; TEMP 36.3–36.9; O2SAT 92–97; BMI 32.7
[2025-06-17] MEDS: heparin 5,000 unit/mL INJ 1 mL 5000 UNIT SUBCUT ×2 (01:55→12:37)
[2025-06-17 02:14] LABS: Hematocrit 38.6 % (36-47); Hemoglobin 12.60 g/dL (11.27-16.99); Mean Corpuscular HGB Conc 32.6 g/dL (30-55); Mean Corpuscular Hemoglobin 30.3 pg (27-33); Mean Corpuscular Volume 92.8 fl (85-98); Nucleated Red Blood Cells % 0 %; Platelet Count 304 10^3/cmm (157-399); Red Blood Count 4.16 10^6/uL (3.85-5.65); White Blood Count 9.86 10^3/uL (3.29-11.43)
[2025-06-17 02:30] LABS: Alanine Aminotransferase < 5 U/L (0-33); Albumin Level 3.1 g/dL (3.5-5.2); Alkaline Phosphatase 83 U/L (35-105); Anion Gap 22.6 (5-19); Aspartate Amino Transferase 11 U/L (0-32); Blood Urea Nitrogen 22 mg/dL (8-23); Calcium 8.9 mg/dL (8.5-10.5); Carbon Dioxide 22 mmol/L (22-29); Chloride 96 mmol/L (98-107); Creatinine Clr Calc Pharmacy 42.6394; Globulin 3.9 g/dL (1.3-4.6); Glucose 167 mg/dL (65-115); Magnesium 2.0 mg/dL (1.7-2.3); Osmolality Calculated 289 mOsm/kg (285-295); Potassium 4.6 mmol/L (3.5-5.1); Sodium 136 mmol/L (136-145); Total Protein 7.0 g/dL (6.6-8.7)
--- NOTE | 2025-06-17 06:35 | P.PN_ITS ---
Subjective 2 Subjective: Seen this morning. Underwent ventilation/perfusion scan this morning. Result is pending at this time. States her dizziness is improved and she is feeling slightly better than yesterday. States she was taking her torsemide every other day at home. Vitals/I&O/Wt Last Vital Signs Temp 98.0 F 06/17/25 03:53 Pulse 72 06/17/25 05:52 Resp 18 06/17/25 03:53 BP 135/78 06/17/25 03:53 Pulse Ox 92 06/17/25 03:53 O2 Del Method Nasal Cannula 06/17/25 03:53 O2 Flow Rate 2 06/17/25 03:53 06/16/25 06/16/25 06/17/25 14:59 22:59 06:59 Intake Total 150 / 150 180 / 330 1905.000 / 2235.000 Balance 150 / 150 180 / 330 1905.000 / 2235.000 Weight last 48 hrs Weight 91.881 kg Weight 88.904 kg Weight 88.904 kg Physical Exam 2 Narrative: General: No acute distress, AO x3, HEENT: PERRLA, pupils bilaterally equal and reactive Chest: Normal vesicular breath sounds, no added sounds, equal good air entry bilaterally CVS: S1-S2 regular, no murmurs, no tachycardia, no gallops, no rubs, bilateral pedal edema present. Abdomen: Soft, nontender, no organomegaly, bowel sounds present Neuro: No focal deficits, no facial deformity, AO x3, Data 06/17/25 01:44 06/17/25 01:44 Micro: Microbiology 06/16/25 12:28 Blood Culture - Preliminary Blood SPECIMEN COLLECTED 06/16/25 12:26 Blood Culture - Preliminary Blood SPECIMEN COLLECTED A&P Assessment and plan 1. Anxiety: 2. Hypertension: 3. Severe mitral valve stenosis: 4. Diabetes: 5. Hypothyroidism: 6. Headache: 7. Chronic migraine without aura, intractable, with status migrainosus: 8. Pneumonitis: 9. Dizziness: Plan: #Headache dizziness nausea loss of appetite #Subacute pneumonitis/questionable pneumonia #Severe mitral stenosis #Diabetes mellitus type 2 #Requiring supplemental oxygen at this time #Leukocytosis #Possible migraine headaches ? Patient's headache dizzy and nausea loss of appetite may be secondary to her semaglutide. However other causes are not ruled out. She has been having dizziness for about 2 months. MRI head was done in February which showed no acute pathology. It did show a small chronic infarct right frontal lobe laterally near the cortex. She has been following up with Dr. Gill. EEG was ordered as an. Unsure if that has been completed at this time. Her torsemide was discontinued at the previous hospitalization and added and has as needed. ? She has had loss of appetite as well. ? Denies any nausea or vomiting. ? She is requiring 1 L nasal cannula at this time saturating 98%. ? She was given IV Levaquin x 1 in the ER. ? Hospitalist requested to admit for subacute pneumonitis. ? Will check PT OT ? Sputum culture Gram stain ? Blood cultures ? Patient does have a leukocytosis 13,000 ? We will provide gentle IV fluid hydration and normal saline 75 cc/h ? I will check TSH. ? Will check carotid Dopplers ? Patient may benefit from an monitor at discharge to rule out occult arrhythmias. ? Ordered DuoNeb every 6 hours as needed. ? Check bacterial antigen strep and Legionella. ? Check orthostatic vitals - Continue amitriptaline Full code DVT prophylaxis: Heparin SQ twice daily 06/17/2025 Patient states her dizziness is improved. Creatinine 1.3 today. Close to baseline She did have IV fluids overnight. She states she has been taking torsemide every other day at home. High believe she was dehydrated once again. Orthostatic vitals are pending at this time D-dimer was quite high at 6.56. VQ scan pending. CTA chest deferred secondary to elevated creatinine. Chloride level low at 96 consistent with dehydration. I would continue IV fluids today however we will decrease the rate to 60 cc/h for 1 more liter total. Cultures negative to date. Continue to treat with IV antibiotics IV Levaquin. May consider discharge home in next 24 hours if continues to show clinical improvement. Antibiotics at discharge deferred to discharging physician. PDMP PDMP Reviewed: Not Reviewed Attestations 2 Medical Necessity Statement*: Observation admission. Expect less than 2 midnight stay for headache dizziness Diagnoses Anxiety F41.9 Hypertension I10 Severe mitral valve stenosis I05.0 Diabetes E11.9 Hypothyroidism E03.9 Headache R51.9 Chronic migraine without aura, intractable, with status migrainosus G43.711 Pneumonitis J98.4 Dizziness R42
--- NOTE | 2025-06-17 14:40 | NMR_ITS ---
PROCEDURE INFORMATION: Exam: MI Lung Ventilation and Perfusion Imaging Exam date and time: 06/17/2025 7:20 AM Age: 74 years old Clinical indication: Dyspnea; SOB, headache, dizziness; Additional info: Suspect pe TECHNIQUE: Imaging protocol: Nuclear pulmonary ventilation with aerosol or gas was performed followed by perfusion. Views: Ventilation acquired with multiple projections. Perfusion acquired with multiple projections. Radiopharmaceutical: 5.2 mCi Tc-99m MAA (Macroaggregated Albumin), IV. 32.2 mCi Tc-99m DTPA (DTPA Aerosol), Inhalation. COMPARISON: CR XR chest 1V portable [id number] 06/16/2025 8:49 AM FINDINGS: Ventilation: There is a large ventilation defect in the upper 2/3 of the left lower lobe. There is heterogeneous ventilation throughout the right lung with a large broad vertical band of decreased ventilation over the entire right lung. Some of these ventilation abnormalities may be attenuation from overlying arms. Perfusion: There is a large perfusion defect in the upper 2/3 of the left lower lobe. There is heterogeneous perfusion throughout the right lung with a large broad vertical band of decreased perfusion over the entire right lung. Some of these perfusion abnormalities may be attenuation from the overlying arms. MI/MI pul vent and perfus* [id number] IMPRESSION: Multiple matched ventilation perfusion defects bilaterally. This translates to intermediate probability of pulmonary embolism..
[2025-06-17] MEDS: heparin drip 25,000 UNIT/500 ML PREMIX 26 UNIT IV (16:34)
[2025-06-17] MEDS: heparin 5,000 unit/mL INJ 1 mL IVP (16:35)
[2025-06-17 23:26] LABS: Partial Thromboplastin Time 154.7 SECONDS (23.9-36.7)
[2025-06-18] VITALS (7 sets, daily range): BP systolic 103–127; BP diastolic 58–73; PULSE 62–72; RESP 14–18; TEMP 36.3–36.7; O2SAT 94–97
[2025-06-18 01:08] LABS: Partial Thromboplastin Time 116.2 SECONDS (23.9-36.7)
[2025-06-18 06:07] LABS: Hematocrit 35.8 % (36-47); Hemoglobin 11.70 g/dL (11.27-16.99); Mean Corpuscular HGB Conc 32.7 g/dL (30-55); Mean Corpuscular Hemoglobin 30.4 pg (27-33); Mean Corpuscular Volume 93.0 fl (85-98); Nucleated Red Blood Cells % 0 %; Platelet Count 333 10^3/cmm (157-399); Red Blood Count 3.85 10^6/uL (3.85-5.65); White Blood Count 10.71 10^3/uL (3.29-11.43)
[2025-06-18 06:26] LABS: Anion Gap 13.8 (5-19); Blood Urea Nitrogen 29 mg/dL (8-23); Calcium 8.6 mg/dL (8.5-10.5); Carbon Dioxide 24 mmol/L (22-29); Chloride 104 mmol/L (98-107); Creatinine Clr Calc Pharmacy 40.0986; Glucose 121 mg/dL (65-115); Osmolality Calculated 293 mOsm/kg (285-295); Potassium 3.8 mmol/L (3.5-5.1); Sodium 138 mmol/L (136-145)
[2025-06-18 06:30] LABS: Partial Thromboplastin Time 109.5 SECONDS (23.9-36.7)
[2025-06-18] MEDS: levofloxacin-dextrose 5 % 750 MG/150 ML PREMIX 100 MG IV (11:56)
[2025-06-18 14:29] LABS: Partial Thromboplastin Time 61.6 SECONDS (23.9-36.7)
[2025-06-18] MEDS: heparin drip 25,000 UNIT/500 ML PREMIX 18 UNIT IV (15:22)
--- NOTE | 2025-06-18 19:15 | P.PN_ITS ---
Subjective 2 Subjective: Seen this morning. Patient is with a prerenal azotemia will agitate a little with IV hydration overnight and then to a CTA on this patient grandson that the creatinine will be down. In March creatinine was 1.1. Vitals/I&O/Wt Last Vital Signs Temp 97.4 F L 06/18/25 16:00 Pulse 66 06/18/25 16:00 Resp 18 06/18/25 16:00 BP 127/73 06/18/25 16:00 Pulse Ox 95 06/18/25 16:00 O2 Del Method Nasal Cannula 06/18/25 16:00 O2 Flow Rate 2 06/18/25 08:30 06/18/25 06/18/25 06/18/25 06:59 14:59 22:59 Intake Total 441.067 / 4030.062 9339.55 / 2392.55 372 / 2764.55 Output Total 200 / 200 400 / 400 Balance 241.067 / 8927.300 9054.55 / 2392.55 -28 / 2364.55 Weight last 48 hrs Weight 91.172 kg Weight 91.881 kg Weight 88.904 kg Physical Exam 2 Narrative: Patient is wheelchair for disposition very pleasant and denies any complaints at this time but curious about if she had a PE or not. VQ scan done result not out the best for this patient is to have a CTA but because of an increase in creatinine this is holding out. Obviously patient does have severe dehydration with symptoms of dizziness and a prerenal azotemia. I will give IV fluid overnight should the creatinine come down to a baseline of 1.1 from a 1.4 today CTA can be done. Patient creatinine had gone up to 1.7 in the past because of dehydration. HEENT normocephalic atraumatic neck neck is supple cardiovascular heart is regular lungs are pretty much clear abdomen soft nontender nondistended unremarkable extremities are intact no edema has good pulses neurology has no focality lab studies lab studies reviewed and noted. Data 06/18/25 05:58 06/18/25 05:58 Micro: Microbiology 06/17/25 21:39 Legionella Urinary Antigen - Final Urine,Clean Catch Bacterial Antigens - Final A&P Assessment and plan 1. Anxiety: Stable with anxiety 2. Hypertension: Keep patient normotensive 3. Severe mitral valve stenosis: Continue to monitor 4. Diabetes: Keep patient euglycemic continue medication 5. Hypothyroidism: Continue medication 6. Headache: Resolved headaches 7. Chronic migraine without aura, intractable, with status migrainosus: Resolved headaches 8. Dizziness: Resolving Plan: Prerenal azotemia secondary to acute kidney injury Acute renal failure compounded with dehydration and medications effect Gentle IV hydration of normal saline Repeat creatinine in a.m. should this be down patient will have a CTA to rule out PE. Should discontinue to be the fact patient would then be on Eliquis going home Symptomatic symptomatology with dizziness due to hypovolemia from dehydration Dizziness is resolving Will continue to optimize and care must give some gentle volume to this patient. PDMP PDMP Reviewed: Last Reviewed 06/18/25 19:25 by Beckie Flores MD Attestations 2 Medical Necessity Statement*: Patient required further care to rule out a PE we will get a CTA granting the creatinine will be okay for this procedure. IV hydration is being given overnight to check out creatinine in a.m. Meantime we will continue heparin drip should this patient had PE will go home in the morning on Eliquis Diagnoses Anxiety F41.9 Hypertension I10 Severe mitral valve stenosis I05.0 Diabetes E11.9 Hypothyroidism E03.9 Headache R51.9 Chronic migraine without aura, intractable, with status migrainosus G43.711 Dizziness R42 Time Spent (min) 35
[2025-06-18 20:44] LABS: Partial Thromboplastin Time 46.0 SECONDS (23.9-36.7)
[2025-06-18] MEDS: heparin 5,000 unit/mL INJ 1 mL IVP (21:41)
[2025-06-19] VITALS (7 sets, daily range): BP systolic 118–142; BP diastolic 60–81; PULSE 58–83; RESP 16–18; TEMP 36.3–36.6; O2SAT 95–100
[2025-06-19 04:08] LABS: Platelet Count 325 10^3/cmm (157-399)
[2025-06-19 04:28] LABS: Partial Thromboplastin Time 61.3 SECONDS (23.9-36.7)
--- NOTE | 2025-06-19 04:30 | PC.NURSE ---
ptt 61 according to protocol no change will recheck in 6 hrs.
[2025-06-19 04:32] LABS: Alanine Aminotransferase < 5 U/L (0-33); Albumin Level 2.7 g/dL (3.5-5.2); Alkaline Phosphatase 58 U/L (35-105); Anion Gap 13.9 (5-19); Aspartate Amino Transferase 8 U/L (0-32); Blood Urea Nitrogen 23 mg/dL (8-23); Calcium 8.2 mg/dL (8.5-10.5); Carbon Dioxide 25 mmol/L (22-29); Chloride 105 mmol/L (98-107); Creatinine Clr Calc Pharmacy 37.8872; Globulin 3.2 g/dL (1.3-4.6); Glucose 126 mg/dL (65-115); Osmolality Calculated 295 mOsm/kg (285-295); Potassium 3.9 mmol/L (3.5-5.1); Sodium 140 mmol/L (136-145); Total Protein 5.9 g/dL (6.6-8.7)
--- NOTE | 2025-06-19 11:04 | PC.NURSE ---
Receiving Lead contacted [facility] for a hospital follow up appointment was advised Dr Rodriguez will be out for a month and then his schedule is booked out until July but they will add the patient to the cancellation list and if anything becomes available sooner they will call the patient to reschedule.
[2025-06-19 11:25] LABS: Partial Thromboplastin Time 58.4 SECONDS (23.9-36.7)
--- NOTE | 2025-06-19 13:06 | PM.DCS ---
Discharge Providers Date of Admission: 06/16/25 12:18 Date of Discharge: June 19, 2025 Attending Provider at Admission: Jaimee Daugherty MD Attending Provider at Discharge: Beckie Flores MD Consults: Cardiology Primary Care Provider: David Rodriguez MD Diagnoses at Discharge Discharge Diagnosis 1. Anxiety: 2. Hypertension: 3. Severe mitral valve stenosis: 4. Diabetes: 5. Acquired hypothyroidism: 6. Headache: 7. Chronic migraine without aura, intractable, with status migrainosus: 8. Dizziness: Reason for Visit Reason for Visit: headaches,dizziness, strong urine smell Hospital Course Hospital Course Rylie Ferreira is a 74 year old female With past medical history of hypothyroidism hypertension, type 2 diabetes mellitus possible stroke, history of lymphedema, severe mitral valve stenosis, headaches dizziness presented to the hospital today for complaint of worsening headache and dizziness along with nausea and loss of appetite. She has been feeling thirsty all the time she states. She has not eaten much in the last few days. Denies losing consciousness hitting her head or falling. She states she has seen Dr. Gill and has had MRIs done as well. She states no one can seem to figure out what is wrong. Denies nausea vomiting diarrhea. She had a similar admission in March this year and at that admission was found to be orthostatic positive. She was started on IV hydration and torsemide dose was reduced. She states that she may have a bladder infection as her urine has been feeling very smelly. Denies any dysuria or increased frequency. She is accompanied by her son. Chest x-ray showed subacute pneumonitis she was started on antibiotics in the ER. White count 13,000, chloride 95, creatinine 1.7. Baseline creatinine 1.1-1.5. VQ scan this morning read bilateral intermittent significant for PE mismatch tissues in the lungs. Patient has been on heparin drip and now been initiated on Eliquis 5 mg twice daily patient is getting the first dose while in the hospital following the discontinuation of heparin drip. Patient to follow-up with the PCP within 1 week Physical Exam Narrative: Generally patient is in no apparent distress describing sleeping well and denies any complaints or any other issues. And happy to be going home at this time. Patient is on home oxygen chronically at 2 L. In-house patient had been on 3 L but still with pulse ox in in the mid 90s. HEENT normocephalic/atraumatic neck neck is supple cardiovascular heart rate is irregularly irregular. Lungs lungs are clear abdomen soft nontender nondistended unremarkable extremities are intact no edema has good pulses neurology has no focality lab studies lab studies reviewed and noted. Discharge Data Studies Completed and Pending Completed Studies During Hospitalization Category Date Time Status CT head wo con* [id number] Stat Cat Scan 06/16/25 10:07 Completed XR chest 1V portable [id number] Stat Exams 06/16/25 08:38 Completed NM pul vent and perfus* [id number] Stat Nuc Med 06/17/25 14:40 [place] [id number] Stat Ultrasound 06/16/25 14:40 Completed Pending at discharge Category Date Time Status Blood Culture Stat Lab 06/16/25 12:28 Results Sputum Culture and Gram Stain Stat Lab 06/16/25 13:20 Uncollected Radiology Impressions Chest X-Ray 06/16/25 08:38 IMPRESSION: Interval change of unknown chronicity in both lungs as above. Potentially this could represent an acute or subacute pneumonitis. Head CT 06/16/25 10:07 IMPRESSION: 1. No evidence of intracranial hemorrhage or mass effect. 2. Mild ethmoid sinusitis. 3. No acute intracranial findings. Pulmonary Perfusion Imaging 06/17/25 14:40 IMPRESSION: Multiple matched ventilation perfusion defects bilaterally. This translates to intermediate probability of pulmonary embolism.. Laboratory Results WBC 10.71 10^3/uL (3.29-11.43) 06/18/25 05:58 RBC 3.85 10^6/uL (3.85-5.65) 06/18/25 05:58 Hgb 11.70 g/dL (11.27-16.99) 06/18/25 05:58 Hct 35.8 % (36-47) L 06/18/25 05:58 MCV 93.0 fl (85-98) 06/18/25 05:58 MCH 30.4 pg (27-33) 06/18/25 05:58 MCHC 32.7 g/dL (30-55) 06/18/25 05:58 RDW 11.8 % (12.1-15.1) L 06/18/25 05:58 Plt Count 325 10^3/cmm (157-399) 06/19/25 03:56 MPV 10.4 fL (7.4-10.4) 06/18/25 05:58 Neut % (Auto) 74.0 % 06/18/25 05:58 Lymph % (Auto) 16.3 % 06/18/25 05:58 Moore % (Auto) 7.3 % 06/18/25 05:58 Eos % (Auto) 0.7 % 06/18/25 05:58 Baso % (Auto) 0.4 % 06/18/25 05:58 Neut # (Auto) 7.93 10^3/uL (1.8-7.7) H 06/18/25 05:58 Lymph # (Auto) 1.8 10^3/uL (0.8-4.8) 06/18/25 05:58 Moore # (Auto) 0.8 10^3/uL (0.2-0.9) 06/18/25 05:58 Eos # (Auto) 0.1 10^3/uL (0.0-0.8) 06/18/25 05:58 Baso # (Auto) 0.0 10^3/uL (0.0-0.1) 06/18/25 05:58 Nucleated RBC % (auto) 0 % 06/18/25 05:58 Nucleated RBCs # 0.0 /100WBC 06/18/25 05:58 APTT 58.4 SECONDS (23.9-36.7) H 06/19/25 10:58 D-Dimer 6.93 ug/mLFEU (0-0.59) H 06/16/25 09:21 Sodium 140 mmol/L (136-145) 06/19/25 03:56 Potassium 3.9 mmol/L (3.5-5.1) 06/19/25 03:56 Chloride 105 mmol/L (98-107) 06/19/25 03:56 Carbon Dioxide 25 mmol/L (22-29) 06/19/25 03:56 Anion Gap 13.9 (5-19) 06/19/25 03:56 BUN 23 mg/dL (8-23) 06/19/25 03:56 Creatinine 1.5 mg/dL (0.5-0.9) H 06/19/25 03:56 GFR Calculation Not Reportable 06/19/25 03:56 Glucose 126 mg/dL (65-115) H 06/19/25 03:56 POC Glucose 82 mg/dL (70-110) 06/19/25 11:19 Calculated Osmolality 295 mOsm/kg (285-295) 06/19/25 03:56 Calcium 8.2 mg/dL (8.5-10.5) L 06/19/25 03:56 Magnesium 2.0 mg/dL (1.7-2.3) 06/17/25 01:44 Total Bilirubin 0.2 mg/dL (0.15-1.2) 06/19/25 03:56 AST 8 U/L (0-32) 06/19/25 03:56 ALT < 5 U/L (0-33) 06/19/25 03:56 Alkaline Phosphatase 58 U/L (35-105) 06/19/25 03:56 Total Protein 5.9 g/dL (6.6-8.7) L 06/19/25 03:56 Albumin 2.7 g/dL (3.5-5.2) L 06/19/25 03:56 Globulin 3.2 g/dL (1.3-4.6) 06/19/25 03:56 TSH 0.84 uIU/mL (0.27-4.20) 06/16/25 09:21 Urine Color Dark yellow (Yellow) A 06/16/25 09:49 Urine Appearance Clear (CLEAR) 06/16/25 09:49 Urine pH 5.5 (5-7) 06/16/25 09:49 Ur Specific [place] 1.019 (1.005-1.030) 06/16/25 09:49 Urine Protein Trace (Negative) A 06/16/25 09:49 Urine Glucose (UA) Negative (Normal) 06/16/25 09:49 Urine Ketones Trace (Negative) 06/16/25 09:49 Urine Blood Negative (Negative) 06/16/25 09:49 Urine Nitrate Negative (Negative) 06/16/25 09:49 Urine Bilirubin Negative (Negative) 06/16/25 09:49 Urine Urobilinogen 1.0 mg/dL (Negative) 06/16/25 09:49 Ur Leukocyte Esterase Negative (Negative) 06/16/25 09:49 Urine RBC 3-5 /hpf (0-2) 06/16/25 09:49 Urine WBC 0-5 /hpf (0-5) 06/16/25 09:49 Ur Squamous Epith Cells 0-5 /hpf (0-5) 06/16/25 09:49 Amorphous Sediment Not Reportable 06/16/25 09:49 Urine Bacteria None seen /hpf (NONE) 06/16/25 09:49 Hyaline Casts 7.01 /lpf 06/16/25 09:49 Fine Granular Casts 0-4 /lpf H 06/16/25 09:49 Vitals Last Vital Signs Temp 97.6 F 06/19/25 11:45 Pulse 61 06/19/25 11:45 Resp 17 06/19/25 11:45 BP 131/63 06/19/25 11:45 Pulse Ox 98 06/19/25 11:45 O2 Del Method Nasal Cannula 06/19/25 11:45 O2 Flow Rate 2 06/19/25 08:32 Discharge Plan Discharge Patient Disposition: Home Condition: Stable Prescriptions: New Eliquis 5 mg tablet 5 mg PO BID 30 Days Qty: 60 0RF Continued sumatriptan succinate 100 mg tablet See Rx Instructions PO .COMPLEX Qty: 10 0RF Rx Instructions: Take 1 tablet by mouth at onset of headache; if no relief, may repeat 1 tablet after at least 2 hrs; max = 2 tablets/24 hrs. cyclobenzaprine 5 mg tablet 5 mg PO BID PRN (Reason: muscle spasm) Qty: 30 1RF levothyroxine 75 mcg tablet 75 mcg PO DAILY@08 Qty: 90 1RF calcium acetate(phosphat bind) 667 mg capsule 2,001 mg PO DAILY@12 Qty: 90 1RF Januvia 50 mg tablet 50 mg PO DAILY Qty: 90 1RF potassium chloride 20 mEq tablet extended release 20 meq PO DAILY Qty: 90 1RF Ozempic 1 mg/dose (4 mg/3 mL) pen injector See Rx Instructions .ROUTE .COMPLEX Qty: 3 2RF Dose Instruction: INJECT 1MG (0.5ML) SUBCUTANEOUSLY ONCE WEEKLY Rx Instructions: INJECT 1MG (0.5ML) SUBCUTANEOUSLY ONCE WEEKLY on Thursday torsemide 20 mg tablet 20 mg PO QAM PRN (Reason: swelling) Qty: 90 1RF cyanocobalamin (vitamin B-12) 5,000 mcg capsule 5,000 mcg PO DAILY Qty: 90 1RF amitriptyline 50 mg tablet 50 mg PO BEDTIME Associate Relations Specialist [place] for DC: Family Medicine Discharge Order = DC NOW: Discharge Order (Routine); Ordered 06/19/25 Ordered By: Beckie Flores Referrals: David Rodriguez MD [Primary Care Provider, [facility]] - 08/07/25 9:30 am Referral Note: Dr Rodriguez's office will add you to a cancellation list. If they are able they will call you with a sooner appointment. Discharge Diet: Cardiac Discharge Activity: Resume usual activity Patient Instructions: Apixaban (By mouth), Pulmonary Embolism (GEN), Opioid Safety, Patient Portal & Maria Elena Instructions Discharge Attestations Time Spent in Discharge Care*: less than 30 min Status at Discharge: Cognitive status at discharge: cognitively intact, Behavioral status at discharge: cooperative, Functional status at discharge: independent ambulation, Overall status at discharge: patient is progressing back to baseline Quality Metrics Clinical Quality Measures [ No reported AMI, CVA or VTE this stay] Coding Level of Care Code 64472 Diagnoses Anxiety F41.9 Hypertension I10 Severe mitral valve stenosis I05.0 Diabetes E11.9 Acquired hypothyroidism E03.9 Hypothyroidism type: acquired Headache R51.9 Chronic migraine without aura, intractable, with status migrainosus G43.711 Dizziness R42
== END 2025-06-19 15:15 | disposition home or self-care (01) ==
LOC: ER 15:32 → MEDSURG 18:03
PROVIDERS: Family Medicine; Internal Medicine; Student in an Organized Health Care Education/Training Program; Admitting Provider Internal Medicine; Emergency Provider Family Medicine; PCP Family Medicine; Visit Provider Internal Medicine
DX: I26.99 Other pulmonary embolism without acute cor pulmonale (principal); F41.9 Anxiety disorder, unspecified; I05.0 Rheumatic mitral stenosis; E03.9 Hypothyroidism, unspecified; G43.711 Chronic migraine without aura, intractable, with status migrainosus; Z87.2 Personal history of diseases of the skin and subcutaneous tissue; G47.30 Sleep apnea, unspecified; M81.0 Age-related osteoporosis without current pathological fracture; E11.22 Type 2 diabetes mellitus with diabetic chronic kidney disease; I12.9 Hypertensive chronic kidney disease with stage 1 through stage 4 chronic kidney disease, or unspecified chronic kidney disease
CPT/HCPCS: 36415; 36416; 70450; 71045; 78014; 80048; 80053; 81001; 82962; 83735; 84443; 85025; 85049; 85378; 85730; 86403; 87040; 87449; 93005; 93970; 96365; 96372; 96375; 99285; A9540; A9567; G0378; J1644; J1956; J2919; J7030; J9999

== ENCOUNTER → 2025-07-19 12:49 | Outpatient (BNVA) | payer MEDICARE, MEDICAID, SELFPAY | PROVIDERS: PCP Family Medicine; Visit Provider Specialist | DX: G43.711 Chronic migraine without aura, intractable, with status migrainosus (principal) | CPT/HCPCS: 99214 ==

== ENCOUNTER → 2025-08-08 14:12 | Outpatient (BNVA) | payer MEDICARE, MEDICAID, SELFPAY | PROVIDERS: PCP Family Medicine; Referring Provider Family Medicine; Visit Provider Specialist | DX: G43.711 Chronic migraine without aura, intractable, with status migrainosus (principal); G45.9 Transient cerebral ischemic attack, unspecified | CPT/HCPCS: 99215 ==

== ENCOUNTER → 2025-09-05 10:40 | Outpatient (BNVA) | payer MEDICARE, MEDICAID, SELFPAY | PROVIDERS: PCP Family Medicine; Visit Provider Anesthesiology Pain Medicine | DX: M48.062 Spinal stenosis, lumbar region with neurogenic claudication (principal); M54.9 Dorsalgia, unspecified | CPT/HCPCS: 72074; 72110; 99214 ==

== ENCOUNTER → 2025-10-09 09:30 | Outpatient (BNVA) | payer MEDICARE, MEDICAID, SELFPAY | PROVIDERS: PCP Family Medicine; Visit Provider Anesthesiology Pain Medicine | DX: M48.062 Spinal stenosis, lumbar region with neurogenic claudication (principal); G89.29 Other chronic pain | CPT/HCPCS: 99214 ==

== ENCOUNTER → 2025-11-08 14:47 | Outpatient (BNVA) | payer MEDICARE, MEDICAID, SELFPAY | PROVIDERS: PCP Family Medicine; Referring Provider Family Medicine; Visit Provider Specialist | DX: G43.711 Chronic migraine without aura, intractable, with status migrainosus (principal); G45.9 Transient cerebral ischemic attack, unspecified | CPT/HCPCS: 99213 ==

== ENCOUNTER → 2025-11-09 11:59 | Outpatient (BNVA) | payer MEDICARE, MEDICAID, SELFPAY | PROVIDERS: PCP Family Medicine; Visit Provider Family Medicine | DX: E11.9 Type 2 diabetes mellitus without complications (principal); E03.9 Hypothyroidism, unspecified | CPT/HCPCS: 80053; 80061; 83036; 84439; 84443; 85025 ==